=== PATIENT | female | born 1945 | race Caucasian/White ===

== ENCOUNTER → 2016-07-20 | Outpatient (REF) | payer MEDICARE, OTHER | LOC: M LAB REF 16:13 | PROVIDERS: ATTEND Surgery | DX: D48.5 Neoplasm of uncertain behavior of skin (principal) ==

== ENCOUNTER → 2016-09-01 | Outpatient (CLI) | payer MEDICARE, OTHER | LOC: M LAB 09:12 | PROVIDERS: ATTEND Nurse Practitioner Family | DX: E55.9 Vitamin D deficiency, unspecified (principal); E53.8 Deficiency of other specified B group vitamins; Z79.899 Other long term (current) drug therapy ==

== ENCOUNTER → 2016-12-15 | Outpatient (CLI) | payer MEDICARE, OTHER ==
[2016-12-15 10:45] LABS: ALBUMIN 3.7 GM/DL (3.2-5.2); ALBUMIN/GLOBULIN RATIO 1.23 (1.00-1.93); ALKALINE PHOSPHATASE 48 U/L (45-117); ALT/SGPT 33 U/L (12-78); ANION GAP 6 MEQ/L (8-16); AST/SGOT 15 U/L (15-37); BILIRUBIN,TOTAL 0.4 MG/DL (0.2-1.0); BLOOD UREA NITROGEN 19 MG/DL (7-18); CALCIUM LEVEL 9.5 MG/DL (8.8-10.2); CARBON DIOXIDE LEVEL 32 MEQ/L (21-32); CHLORIDE LEVEL 102 MEQ/L (98-107); CHOLESTEROL LEVEL 168 MG/DL (<200); CREATININE FOR GFR 0.78 MG/DL (0.55-1.02); FREE T4 1.04 NG/DL (0.76-1.46); GLOMERULAR FILTRATION RATE > 60.0 (>39); GLUCOSE, FASTING 92 MG/DL (83-110); POTASSIUM SERUM 4.2 MEQ/L (3.5-5.1); SODIUM LEVEL 140 MEQ/L (136-145); TOTAL PROTEIN 6.7 GM/DL (6.4-8.2); TRIGLYCERIDES LEVEL 68 MG/DL (<150)
[2016-12-15 11:22] LABS: VITAMIN B12 LEVEL 1008 PG/ML (247-911)
== END ==
LOC: M LAB 09:36
PROVIDERS: ATTEND Nurse Practitioner Family
DX: D64.9 Anemia, unspecified (principal); E55.9 Vitamin D deficiency, unspecified; I10 Essential (primary) hypertension; E78.00 Pure hypercholesterolemia, unspecified

== ENCOUNTER → 2016-12-16 | Outpatient (CLI) | payer MEDICARE, OTHER ==
[2016-12-16 13:57] LABS: MEAN CORPUSCULAR HEMOGLOBIN 29.9 pg (27.0-33.0); MEAN CORPUSCULAR HGB CONC 33.9 g/dl (32.0-36.5); RED CELL DISTRIBUTION WIDTH 13.4 % (11.5-14.5); WHITE BLOOD COUNT 6.2 10^3/uL (4.0-10.0)
== END ==
LOC: M LAB 12:53
PROVIDERS: ATTEND Nurse Practitioner Family
DX: D64.9 Anemia, unspecified (principal); E55.9 Vitamin D deficiency, unspecified; I10 Essential (primary) hypertension; E78.00 Pure hypercholesterolemia, unspecified

== ENCOUNTER → 2018-01-24 | Outpatient (CLI) | payer MEDICARE, OTHER | LOC: M WHC 12:40 | DX: Z12.31 Encounter for screening mammogram for malignant neoplasm of breast (principal); L72.0 Epidermal cyst; Z92.29 Personal history of other drug therapy | CPT/HCPCS: 88304 ==

== ENCOUNTER → 2018-02-09 | Outpatient (CLI) | payer MEDICARE, OTHER | LOC: M RAD 11:03 | DX: N18.2 Chronic kidney disease, stage 2 (mild) (principal); N28.1 Cyst of kidney, acquired | CPT/HCPCS: 76775 ==

== ENCOUNTER → 2018-02-24 | Outpatient (CLI) | payer MEDICARE, OTHER ==
--- NOTE | 2018-02-25 07:13 | REP ---
REASON: History of hypertension and dizziness. PRIORS: None. There is slight echogenic material seen along the blanco of the carotid arteries some of which cast a slight acoustic shadow consistent with calcific deposition. RIGHT LEFT CCA Systolic 89.8 cm/s 89.6 cm/s CCA Diastolic 16.9 cm/s 20.5 cm/s ICA Systolic 63.6 cm/s 70.3 cm/s ICA Diastolic 15.3 cm/s 25.7 cm/s ICA/CCA Ratio 0.71 0.78 Analysis of the spectral wave form shows no evidence of significant spectral broadening. There is antegrade flow seen in both vertebral arteries. IMPRESSION: According to the NASCET consensus criteria, there is less than 50% stenosis of the internal carotid artery bilaterally. Electronically Signed by Bernabe Shahid DO 02/25/2018 11:01 A
== END ==
LOC: M RAD 16:51
PROVIDERS: ATTEND Internal Medicine Nephrology
DX: I65.23 Occlusion and stenosis of bilateral carotid arteries (principal)

== ENCOUNTER → 2018-03-24 | Outpatient (CLI) | payer MEDICARE, OTHER ==
[2018-03-24 12:56] LABS: HEMOGLOBIN 13.2 g/dl (12.0-15.5); MEAN CORPUSCULAR HEMOGLOBIN 30.8 pg (27.0-33.0); MEAN CORPUSCULAR HGB CONC 33.8 g/dl (32.0-36.5); MEAN CORPUSCULAR VOLUME 90.9 fl (80.0-96.0); PLATELET COUNT, AUTOMATED 198 10^3/uL (150-450); RED BLOOD COUNT 4.29 10^6/uL (4.00-5.40); WHITE BLOOD COUNT 4.6 10^3/uL (4.0-10.0)
[2018-03-24 13:23] LABS: ALBUMIN 3.7 GM/DL (3.2-5.2); ALT/SGPT 29 U/L (12-78); BILIRUBIN,TOTAL 0.7 MG/DL (0.2-1.0); BLOOD UREA NITROGEN 18 MG/DL (7-18); CALCIUM LEVEL 9.2 MG/DL (8.8-10.2); CARBON DIOXIDE LEVEL 29 MEQ/L (21-32); CHLORIDE LEVEL 107 MEQ/L (98-107); CHOLESTEROL LEVEL 159 MG/DL (<200); CHOLESTEROL RISK RATIO 2.446 (<5); CPK CREATINE PHOSPHOKINASE 86 U/L (26-192); GLOMERULAR FILTRATION RATE > 60.0 (>39); GLUCOSE, FASTING 73 MG/DL (70-100); HDL CHOLESTEROL 65 MG/DL (>40); LDL CHOLESTEROL 81 MG/DL (<100); NON-HDL-C 94 MG/DL; POTASSIUM SERUM 4.1 MEQ/L (3.5-5.1); SODIUM LEVEL 144 MEQ/L (136-145); TOTAL PROTEIN 6.4 GM/DL (6.4-8.2); TRIGLYCERIDES LEVEL 63 MG/DL (<150)
[2018-03-24 14:10] LABS: TOTAL 25(OH) VITAMIN D 39.1 NG/ML (30.0-100.0)
== END ==
LOC: M LAB 11:59
PROVIDERS: ATTEND Nurse Practitioner Family
DX: I10 Essential (primary) hypertension (principal); E78.00 Pure hypercholesterolemia, unspecified; E55.9 Vitamin D deficiency, unspecified

== ENCOUNTER → 2018-05-02 | Outpatient (CLI) | payer MEDICARE, OTHER ==
--- NOTE | 2018-05-04 11:19 | DEXA ---
AP SPINE L1 - L4 1.266 0.6 2.3 LT FEMUR TOTAL 0.920 -0.7 0.9 LT NECK 0.930 -0.8 1.0 RT FEMUR TOTAL 0.883 -1.0 0.6 RT NECK 0.860 -1.3 0.5 TOTAL BODY TOTAL OTHER COMMENTS: Normal bone densitometry of the spine. Normal bone densitometry of the left hip. There is low bone density of the right hip. The decreased density of the spine does represent a significant change since 11/19/2014. The decreased density of the left hip does represent a significant change since 11/19/2014. The decreased density of the right hip does represent a significant change. The density of the spine has increased 9.0% since the initial exam on 05/24/2002. The spine density has decreased 4.2% since the most recent exam on 11/19/2014. The density of the left hip has decreased 2.6% since the initial exam on 05/24/2002. The density of the left hip has decreased 5.4% since the most recent exam on 11/19/2014. The density of the right hip has decreased 0.3% since the initial exam on 05/24/2002. The density of the right hip has decreased 5.6% since the most recent exam on 11/19/2014. FOLLOW-UP: Recommendation for the next bone density exam: 2 years. LIANE
== END ==
LOC: M WHC 13:25
PROVIDERS: ATTEND Nurse Practitioner Family
DX: M85.851 Other specified disorders of bone density and structure, right thigh (principal); E55.9 Vitamin D deficiency, unspecified

== ENCOUNTER → 2018-06-21 | Outpatient (CLI) | payer MEDICARE, OTHER ==
[2018-06-21 12:55] LABS: HEMATOCRIT 41.6 % (36.0-47.0); HEMOGLOBIN 14.3 g/dl (12.0-15.5); MEAN CORPUSCULAR HEMOGLOBIN 30.6 pg (27.0-33.0); MEAN CORPUSCULAR HGB CONC 34.4 g/dl (32.0-36.5); MEAN CORPUSCULAR VOLUME 88.9 fl (80.0-96.0); PLATELET COUNT, AUTOMATED 191 10^3/uL (150-450); RED BLOOD COUNT 4.68 10^6/uL (4.00-5.40); WHITE BLOOD COUNT 4.7 10^3/uL (4.0-10.0)
[2018-06-21 13:20] LABS: ALBUMIN 3.9 GM/DL (3.2-5.2); ALT/SGPT 30 U/L (12-78); BILIRUBIN,TOTAL 0.6 MG/DL (0.2-1.0); BLOOD UREA NITROGEN 17 MG/DL (7-18); CALCIUM LEVEL 9.5 MG/DL (8.8-10.2); CARBON DIOXIDE LEVEL 31 MEQ/L (21-32); CHLORIDE LEVEL 107 MEQ/L (98-107); CHOLESTEROL LEVEL 191 MG/DL (<200); CPK CREATINE PHOSPHOKINASE 72 U/L (26-192); CREATININE FOR GFR 0.78 MG/DL (0.55-1.30); GLOMERULAR FILTRATION RATE > 60.0 (>39); GLUCOSE, FASTING 105 MG/DL (70-100); HDL CHOLESTEROL 71 MG/DL (>40); LDL CHOLESTEROL 100 MG/DL (<100); NON-HDL-C 120 MG/DL; POTASSIUM SERUM 4.3 MEQ/L (3.5-5.1); SODIUM LEVEL 143 MEQ/L (136-145); TOTAL PROTEIN 6.7 GM/DL (6.4-8.2); TRIGLYCERIDES LEVEL 98 MG/DL (<150)
[2018-06-21 13:28] LABS: TOTAL 25(OH) VITAMIN D 32.2 NG/ML (30.0-100.0)
== END ==
LOC: M LAB 12:30
PROVIDERS: ATTEND Nurse Practitioner Family
DX: E78.5 Hyperlipidemia, unspecified (principal); E55.9 Vitamin D deficiency, unspecified; I10 Essential (primary) hypertension; Z79.899 Other long term (current) drug therapy

== ENCOUNTER → 2018-07-10 | Outpatient (REF) | payer MEDICARE, OTHER ==
[2018-07-10 13:34] LABS: HEMOGLOBIN A1c 5.8 %
[2018-07-10 13:38] LABS: RHEUMATOID FACTOR QUANT < 10.0 IU/ML (<15.0); TOTAL PROTEIN 6.4 GM/DL (6.4-8.2)
[2018-07-10 13:40] LABS: VITAMIN B12 LEVEL 589 PG/ML (247-911)
[2018-07-10 14:05] LABS: FOLATE > 24.0 NG/ML (>5.4)
[2018-07-11 10:11] LABS: DRVV SCREEN 31.8 SEC
[2018-07-11 10:13] LABS: PTT LUPUS TYPE ANTICOAG SCREEN 0.8 (0-1.2)
[2018-07-11 10:55] LABS: ALBUMIN % 65.2 % (55.8-66.1); ALPHA-1-GLOBULIN % 4.2 % (2.9-4.9); ALPHA-2-GLOBULINS % 9.9 % (7.1-11.8); BETA-1-GLOBULINS % 6.9 % (4.7-7.2); BETA-2-GLOBULINS % 5.1 % (3.2-6.5)
[2018-07-11 10:56] LABS: ALBUMIN 4.17 GM/DL (3.29-5.55); ALPHA-1-GLOBULINS 0.27 GM/DL (0.17-0.41); ALPHA-2-GLOBULINS 0.63 GM/DL (0.42-0.99); BETA-1-GLOBULINS 0.44 GM/DL (0.28-0.60); BETA-2-GLOBULINS 0.33 GM/DL (0.19-0.55); GAMMA GLOBULIN % 8.7 % (11.1-18.8); GAMMA GLOBULINS 0.56 GM/DL (0.65-1.58)
[2018-07-13 00:06] LABS: ANCA-ATYPICAL <1:20 titer (Neg:<1:20); ANTINUCLEAR ANTIBODIES DIRECT Negative (Negative); CYTOPLASMIC NEUTROP AB ANCA-C <1:20 titer (Neg:<1:20); PERINUCLEAR AB ANCA-P <1:20 titer (Neg:<1:20); SJOGREN'S ANTI SS-A <0.2 AI (0.0-0.9); SJOGREN'S ANTI SS-B <0.2 AI (0.0-0.9)
[2018-07-13 14:51] LABS: ANTI DS-DNA AB <1:10 titer (.); VITAMIN E(ALPHA TOCOPHEROL) 12.9 mg/L (9.0-29.0); VITAMIN E(GAMMA TOCOPHEROL) 0.5 mg/L (0.5-4.9)
== END ==
LOC: M LABNEURO 10:48
PROVIDERS: ATTEND Psychiatry & Neurology Neurology
DX: G62.9 Polyneuropathy, unspecified (principal); E07.9 Disorder of thyroid, unspecified

== ENCOUNTER → 2018-09-19 | Outpatient (CLI) | payer MEDICARE, OTHER ==
[2018-09-19 10:13] LABS: HEMATOCRIT 37.3 % (36.0-47.0); HEMOGLOBIN 12.5 g/dl (12.0-15.5); MEAN CORPUSCULAR HEMOGLOBIN 29.8 pg (27.0-33.0); MEAN CORPUSCULAR HGB CONC 33.5 g/dl (32.0-36.5); PLATELET COUNT, AUTOMATED 187 10^3/uL (150-450); RED BLOOD COUNT 4.19 10^6/uL (4.00-5.40); WHITE BLOOD COUNT 4.4 10^3/uL (4.0-10.0)
[2018-09-19 10:47] LABS: ALT/SGPT 28 U/L (12-78); BILIRUBIN,TOTAL 0.6 MG/DL (0.2-1.0); BLOOD UREA NITROGEN 16 MG/DL (7-18); CALCIUM LEVEL 9.4 MG/DL (8.8-10.2); CARBON DIOXIDE LEVEL 32 MEQ/L (21-32); CHLORIDE LEVEL 113 MEQ/L (98-107); CHOLESTEROL LEVEL 155 MG/DL (<200); CHOLESTEROL RISK RATIO 2.183 (<5); CPK CREATINE PHOSPHOKINASE 97 U/L (26-192); GLOMERULAR FILTRATION RATE > 60.0 (>39); GLUCOSE, FASTING 93 MG/DL (70-100); HDL CHOLESTEROL 71 MG/DL (>40); LDL CHOLESTEROL 74 MG/DL (<100); NON-HDL-C 84 MG/DL; SODIUM LEVEL 138 MEQ/L (136-145); TOTAL PROTEIN 6.7 GM/DL (6.4-8.2); TRIGLYCERIDES LEVEL 50 MG/DL (<150)
== END ==
LOC: M LAB 09:39
PROVIDERS: ATTEND Nurse Practitioner Family
DX: I10 Essential (primary) hypertension (principal); E55.9 Vitamin D deficiency, unspecified; E78.5 Hyperlipidemia, unspecified

== ENCOUNTER → 2018-11-29 | Outpatient (REF) | payer MEDICARE, OTHER ==
[2018-11-29 19:36] LABS: APPEARANCE, URINE CLEAR (CLEAR); BACTERIA, URINE AUTO NEGATIVE (NEGATIVE); BILIRUBIN, URINE AUTO NEGATIVE (NEGATIVE); BLOOD, URINE BLOOD NEGATIVE (NEGATIVE); COLOR, URINE YELLOW (YELLOW); GLUCOSE, URINE (UA) AUTO NEGATIVE (NEGATIVE); KETONE, URINE AUTO NEGATIVE (NEGATIVE); LEUKOCYTE ESTERASE, URINE AUTO NEGATIVE (NEGATIVE); MUCUS, URINE SMALL (NEGATIVE); NITRITE, URINE AUTO NEGATIVE (NEGATIVE); PROTEIN, URINE AUTO NEGATIVE (NEGATIVE); RBC, URINE AUTO 1 /HPF (0-3); SPECIFIC GRAVITY URINE AUTO 1.005 (1.002-1.035); SQUAMOUS EPITHELIAL CELL UR AU 0 /HPF (0-6); UROBILINOGEN, URINE AUTO 0.2 mg/dL (0.0-2.0); WBC, URINE AUTO 0 /HPF (0-3)
== END ==
LOC: M LAB REF 16:21
PROVIDERS: ATTEND Nurse Practitioner Women's Health
DX: N32.81 Overactive bladder (principal)

== ENCOUNTER → 2019-01-31 | Outpatient (CLI) | payer MEDICARE, OTHER ==
[2019-01-31 10:53] LABS: HEMATOCRIT 40.5 % (36.0-47.0); HEMOGLOBIN 13.1 g/dl (12.0-15.5); MEAN CORPUSCULAR HEMOGLOBIN 29.9 pg (27.0-33.0); MEAN CORPUSCULAR HGB CONC 32.3 g/dl (32.0-36.5); MEAN CORPUSCULAR VOLUME 92.5 fl (80.0-96.0); PLATELET COUNT, AUTOMATED 201 10^3/uL (150-450); RED BLOOD COUNT 4.38 10^6/uL (4.00-5.40); WHITE BLOOD COUNT 4.2 10^3/uL (4.0-10.0)
[2019-01-31 11:26] LABS: ALBUMIN 3.8 GM/DL (3.2-5.2); ALT/SGPT 32 U/L (12-78); BILIRUBIN,TOTAL 0.5 MG/DL (0.2-1.0); BLOOD UREA NITROGEN 16 MG/DL (7-18); CALCIUM LEVEL 9.4 MG/DL (8.8-10.2); CARBON DIOXIDE LEVEL 31 MEQ/L (21-32); CHLORIDE LEVEL 108 MEQ/L (98-107); CHOLESTEROL LEVEL 170 MG/DL (<200); CHOLESTEROL RISK RATIO 2.741 (<5); CPK CREATINE PHOSPHOKINASE 100 U/L (26-192); CREATININE FOR GFR 0.76 MG/DL (0.55-1.30); GLOMERULAR FILTRATION RATE > 60.0 (>39); GLUCOSE, FASTING 86 MG/DL (70-100); HDL CHOLESTEROL 62 MG/DL (>40); LDL CHOLESTEROL 87 MG/DL (<100); NON-HDL-C 108 MG/DL; POTASSIUM SERUM 4.4 MEQ/L (3.5-5.1); SODIUM LEVEL 143 MEQ/L (136-145); TOTAL PROTEIN 6.8 GM/DL (6.4-8.2); TRIGLYCERIDES LEVEL 107 MG/DL (<150)
[2019-01-31 11:31] LABS: TOTAL 25(OH) VITAMIN D 48.1 NG/ML (30.0-100.0)
== END ==
LOC: M LAB 10:11
PROVIDERS: ATTEND Nurse Practitioner Family
DX: I10 Essential (primary) hypertension (principal); E78.5 Hyperlipidemia, unspecified; E55.9 Vitamin D deficiency, unspecified

== ENCOUNTER → 2019-04-24 | Outpatient (CLI) | payer MEDICARE, OTHER ==
--- NOTE | 2019-04-24 16:05 | REPMRS ---
Patient History The patient states she had a clinical breast exam in October 2018.Family history of prostate cancer at age 80 in father. Took unspecified hormones for 7 years. Digital Woman Screen Mammo: April 24, 2019 - Exam #: [id number] Bilateral CC and MLO view(s) were taken. Technologist: Pricilla Shahid, Technologist Prior study comparison: January 24, 2018, bilateral digital woman screen mammo performed at [facility]. January 17, 2017, digital woman screen mammo performed at [facility]. January 16, 2016, digital woman screen mammo performed at [facility]. FINDINGS: The breast tissue is heterogeneously dense. This may lower the sensitivity of mammography. There is a moderate amount of heterogeneously dense fibroglandular tissue which is fairly symmetric. There is no interval development of dominant mass, architectural distortion, or grouped microcalcification typical of malignancy. There has been no change in the appearance of the mammogram from the prior studies. 3-D tomosynthesis shows no additional findings. Assessment: BI-RADS/ACR category 1 mammogram. Negative Mammogram. Recommendation Routine screening mammogram of both breasts in 1 year (for women over age 40). This patient's Lifetime Breast Cancer RIsk is estimated at 6.3 %. This mammogram was interpreted with the aid of an FDA-approved computer-aided dectection system. Electronically Signed By: Elvin Hernandez MD 04/24/19 [id number]
== END ==
LOC: M WHC 12:57
PROVIDERS: ATTEND Obstetrics & Gynecology
DX: Z12.31 Encounter for screening mammogram for malignant neoplasm of breast (principal); R29.890 Loss of height

== ENCOUNTER → 2019-11-23 | Outpatient (CLI) | payer MEDICARE, OTHER ==
[2019-11-23 12:30] LABS: HEMOGLOBIN 12.8 g/dl (12.0-15.5); MEAN CORPUSCULAR HEMOGLOBIN 30.3 pg (27.0-33.0); MEAN CORPUSCULAR HGB CONC 32.8 g/dl (32.0-36.5); MEAN CORPUSCULAR VOLUME 92.4 fl (80.0-96.0); PLATELET COUNT, AUTOMATED 198 10^3/uL (150-450); RED BLOOD COUNT 4.22 10^6/uL (4.00-5.40); WHITE BLOOD COUNT 4.1 10^3/uL (4.0-10.0)
[2019-11-23 13:47] LABS: ALBUMIN 3.8 GM/DL (3.2-5.2); ALT/SGPT 29 U/L (12-78); BILIRUBIN,TOTAL 0.6 MG/DL (0.2-1.0); BLOOD UREA NITROGEN 20 MG/DL (7-18); CALCIUM LEVEL 8.9 MG/DL (8.8-10.2); CARBON DIOXIDE LEVEL 33 MEQ/L (21-32); CHLORIDE LEVEL 107 MEQ/L (98-107); CHOLESTEROL LEVEL 143 MG/DL (<200); CHOLESTEROL RISK RATIO 2.134 (<5); CPK CREATINE PHOSPHOKINASE 64 U/L (26-192); GLOMERULAR FILTRATION RATE > 60.0 (>39); GLUCOSE, FASTING 78 MG/DL (70-100); HDL CHOLESTEROL 67 MG/DL (>40); LDL CHOLESTEROL 67 MG/DL (<100); NON-HDL-C 76 MG/DL; POTASSIUM SERUM 4.2 MEQ/L (3.5-5.1); SODIUM LEVEL 141 MEQ/L (136-145); TOTAL PROTEIN 6.6 GM/DL (6.4-8.2); TRIGLYCERIDES LEVEL 46 MG/DL (<150)
== END ==
LOC: M LAB 11:43
PROVIDERS: ATTEND Nurse Practitioner Family
DX: E78.5 Hyperlipidemia, unspecified (principal); I10 Essential (primary) hypertension

== ENCOUNTER → 2019-12-12 | Outpatient (CLI) | payer MEDICARE, OTHER ==
--- NOTE | 2019-12-19 08:58 | REP ---
RENAL ULTRASOUND COMPARISON: 02/09/2018. HISTORY: Chronic kidney disease stage II. TECHNIQUE: Real-time sonographic evaluation of kidneys performed. FINDINGS: Kidneys are normal in size and echotexture, right kidney measuring 9.9 x 4.9 x 4.1 cm and the left kidney 9.6 x 5.0 x 5.8 cm. There is no hydronephrosis bilaterally. There is a round hyperechoic nodule in the upper pole of the right kidney 6 mm in diameter most consistent with an angiomyolipoma. This is unchanged compared to the prior ultrasound. No other significant abnormalities are seen. Urinary bladder is mildly distended. With Doppler color evaluation ureteral jets could not be visualized. IMPRESSION: No hydronephrosis. 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 MTDD
== END ==
LOC: M RAD 10:59
PROVIDERS: ATTEND Nurse Practitioner Family
DX: N18.2 Chronic kidney disease, stage 2 (mild) (principal)

== ENCOUNTER → 2020-02-21 | Outpatient (CLI) | payer MEDICARE, OTHER ==
[2020-02-21 13:24] LABS: HEMATOCRIT 40.7 % (36.0-47.0); HEMOGLOBIN 13.1 g/dl (12.0-15.5); MEAN CORPUSCULAR HEMOGLOBIN 29.1 pg (27.0-33.0); MEAN CORPUSCULAR HGB CONC 32.2 g/dl (32.0-36.5); MEAN CORPUSCULAR VOLUME 90.4 fl (80.0-96.0); PLATELET COUNT, AUTOMATED 195 10^3/uL (150-450); WHITE BLOOD COUNT 5.8 10^3/uL (4.0-10.0)
[2020-02-21 14:01] LABS: HEMOGLOBIN A1c 5.6 %
[2020-02-21 14:04] LABS: ALT/SGPT 35 U/L (12-78); BILIRUBIN,TOTAL 0.7 MG/DL (0.2-1.0); BLOOD UREA NITROGEN 16 MG/DL (7-18); CALCIUM LEVEL 9.3 MG/DL (8.8-10.2); CARBON DIOXIDE LEVEL 33 MEQ/L (21-32); CHLORIDE LEVEL 107 MEQ/L (98-107); CHOLESTEROL LEVEL 156 MG/DL (<200); CHOLESTEROL RISK RATIO 2.197 (<5); CREATININE FOR GFR 0.82 MG/DL (0.55-1.30); GLOMERULAR FILTRATION RATE > 60.0 (>39); GLUCOSE, FASTING 87 MG/DL (70-100); HDL CHOLESTEROL 71 MG/DL (>40); IRON (FE) 128 UG/DL (50-170); LDL CHOLESTEROL 72 MG/DL (<100); MAGNESIUM LEVEL 2.6 MG/DL (1.8-2.4); NON-HDL-C 85 MG/DL; POTASSIUM SERUM 3.9 MEQ/L (3.5-5.1); SODIUM LEVEL 141 MEQ/L (136-145); TOTAL PROTEIN 6.7 GM/DL (6.4-8.2); TRIGLYCERIDES LEVEL 64 MG/DL (<150)
[2020-02-21 14:07] LABS: VITAMIN B12 LEVEL 965 PG/ML (247-911)
== END ==
LOC: M LAB 12:27
PROVIDERS: ATTEND Nurse Practitioner Family
DX: D64.9 Anemia, unspecified (principal); E83.41 Hypermagnesemia; E11.9 Type 2 diabetes mellitus without complications; E78.49 Other hyperlipidemia

== ENCOUNTER → 2020-05-23 | Outpatient (CLI) | payer MEDICARE, OTHER ==
[2020-05-23 15:56] LABS: HEMATOCRIT 41.4 % (36.0-47.0); HEMOGLOBIN 13.7 g/dl (12.0-15.5); MEAN CORPUSCULAR HEMOGLOBIN 29.7 pg (27.0-33.0); MEAN CORPUSCULAR HGB CONC 33.1 g/dl (32.0-36.5); MEAN CORPUSCULAR VOLUME 89.6 fl (80.0-96.0); PLATELET COUNT, AUTOMATED 205 10^3/uL (150-450); RED BLOOD COUNT 4.62 10^6/uL (4.00-5.40); WHITE BLOOD COUNT 5.9 10^3/uL (4.0-10.0)
[2020-05-23 16:18] LABS: ALBUMIN 3.9 GM/DL (3.2-5.2); ALT/SGPT 31 U/L (12-78); BILIRUBIN,TOTAL 0.6 MG/DL (0.2-1.0); BLOOD UREA NITROGEN 21 MG/DL (7-18); CALCIUM LEVEL 9.5 MG/DL (8.8-10.2); CARBON DIOXIDE LEVEL 31 MEQ/L (21-32); CHLORIDE LEVEL 107 MEQ/L (98-107); CHOLESTEROL LEVEL 149 MG/DL (<200); CHOLESTEROL RISK RATIO 2.328 (<5); CPK CREATINE PHOSPHOKINASE 72 U/L (26-192); GLOMERULAR FILTRATION RATE > 60.0 (>39); GLUCOSE, FASTING 84 MG/DL (70-100); HDL CHOLESTEROL 64 MG/DL (>40); LDL CHOLESTEROL 69 MG/DL (<100); NON-HDL-C 85 MG/DL; POTASSIUM SERUM 4.1 MEQ/L (3.5-5.1); SODIUM LEVEL 142 MEQ/L (136-145); TOTAL PROTEIN 6.5 GM/DL (6.4-8.2); TRIGLYCERIDES LEVEL 79 MG/DL (<150)
[2020-05-23 16:37] LABS: TOTAL 25(OH) VITAMIN D 52.3 NG/ML (30.0-100.0)
== END ==
LOC: M LAB 14:44
PROVIDERS: ATTEND Nurse Practitioner Family
DX: E78.00 Pure hypercholesterolemia, unspecified (principal); I10 Essential (primary) hypertension; E55.9 Vitamin D deficiency, unspecified; Z79.899 Other long term (current) drug therapy

== ENCOUNTER → 2020-08-25 | Outpatient (CLI) | payer MEDICARE, OTHER ==
[2020-08-25 15:15] LABS: HEMATOCRIT 41.1 % (36.0-47.0); HEMOGLOBIN 13.5 g/dl (12.0-15.5); MEAN CORPUSCULAR HGB CONC 32.8 g/dl (32.0-36.5); MEAN CORPUSCULAR VOLUME 88.2 fl (80.0-96.0); PLATELET COUNT, AUTOMATED 221 10^3/uL (150-450); RED BLOOD COUNT 4.66 10^6/uL (4.00-5.40)
[2020-08-25 15:46] LABS: ALT/SGPT 26 U/L (12-78); BILIRUBIN,TOTAL 0.7 MG/DL (0.2-1.0); BLOOD UREA NITROGEN 14 MG/DL (7-18); CALCIUM LEVEL 9.4 MG/DL (8.8-10.2); CARBON DIOXIDE LEVEL 30 MEQ/L (21-32); CHLORIDE LEVEL 107 MEQ/L (98-107); CHOLESTEROL LEVEL 273 MG/DL (<200); CPK CREATINE PHOSPHOKINASE 97 U/L (26-192); CREATININE FOR GFR 0.82 MG/DL (0.55-1.30); GLOMERULAR FILTRATION RATE > 60.0 (>39); GLUCOSE, FASTING 91 MG/DL (70-100); HDL CHOLESTEROL 65 MG/DL (>40); LDL CHOLESTEROL 194 MG/DL (<100); MAGNESIUM LEVEL 2.3 MG/DL (1.8-2.4); NON-HDL-C 208 MG/DL; POTASSIUM SERUM 4.3 MEQ/L (3.5-5.1); SODIUM LEVEL 142 MEQ/L (136-145); TOTAL PROTEIN 6.7 GM/DL (6.4-8.2); TRIGLYCERIDES LEVEL 71 MG/DL (<150)
[2020-08-25 15:51] LABS: TOTAL 25(OH) VITAMIN D 45.6 NG/ML (30.0-100.0)
== END ==
LOC: M LAB 14:37
PROVIDERS: ATTEND Nurse Practitioner Family
DX: I10 Essential (primary) hypertension (principal); E78.5 Hyperlipidemia, unspecified; E83.42 Hypomagnesemia; Z79.899 Other long term (current) drug therapy

== ENCOUNTER → 2020-10-08 | Outpatient (REF) | payer MEDICARE, OTHER | LOC: M LAB REF 17:34 | PROVIDERS: ATTEND Internal Medicine Nephrology | DX: I10 Essential (primary) hypertension (principal); E55.9 Vitamin D deficiency, unspecified ==

== ENCOUNTER → 2020-11-24 | Outpatient (CLI) | payer MEDICARE, OTHER ==
[2020-11-24 15:02] LABS: HEMATOCRIT 39.5 % (36.0-47.0); HEMOGLOBIN 13.1 g/dl (12.0-15.5); MEAN CORPUSCULAR HEMOGLOBIN 29.3 pg (27.0-33.0); MEAN CORPUSCULAR HGB CONC 33.2 g/dl (32.0-36.5); MEAN CORPUSCULAR VOLUME 88.4 fl (80.0-96.0); PLATELET COUNT, AUTOMATED 190 10^3/uL (150-450); RED BLOOD COUNT 4.47 10^6/uL (4.00-5.40); WHITE BLOOD COUNT 5.4 10^3/uL (4.0-10.0)
[2020-11-24 15:58] LABS: ALBUMIN 3.8 GM/DL (3.2-5.2); ALT/SGPT 30 U/L (12-78); BILIRUBIN,TOTAL 0.8 MG/DL (0.2-1.0); BLOOD UREA NITROGEN 22 MG/DL (7-18); CALCIUM LEVEL 9.2 MG/DL (8.8-10.2); CARBON DIOXIDE LEVEL 29 MEQ/L (21-32); CHLORIDE LEVEL 104 MEQ/L (98-107); CHOLESTEROL LEVEL 164 MG/DL (<200); CHOLESTEROL RISK RATIO 2.688 (<5); CPK CREATINE PHOSPHOKINASE 66 U/L (26-192); CREATININE FOR GFR 0.68 MG/DL (0.55-1.30); GLOMERULAR FILTRATION RATE > 60.0 (>39); GLUCOSE, FASTING 83 MG/DL (70-100); HDL CHOLESTEROL 61 MG/DL (>40); LDL CHOLESTEROL 87 MG/DL (<100); NON-HDL-C 103 MG/DL; POTASSIUM SERUM 4.3 MEQ/L (3.5-5.1); SODIUM LEVEL 141 MEQ/L (136-145); TOTAL 25(OH) VITAMIN D 43.9 NG/ML (30.0-100.0); TOTAL PROTEIN 6.5 GM/DL (6.4-8.2); TRIGLYCERIDES LEVEL 80 MG/DL (<150)
== END ==
LOC: M LAB 13:29
PROVIDERS: ATTEND Nurse Practitioner Family
DX: I10 Essential (primary) hypertension (principal)

== ENCOUNTER → 2021-01-21 | Outpatient (CLI) | payer MEDICARE, OTHER ==
[~2021-01-21] MED LIST: ALPH300C PO; ATEN50TA2 PO; CALCCAP4 PO; CETI-36 PO; CHRO1000 PO; CITA20TA6 PO; CITA20TA7 PO; COQ1200C3 PO; CRAN1260 PO; DRIS50003 PO; EQL50TAB2 PO; FISH1000 PO; LOSA25TA14 PO; MONT10TA10 PO; OILCAP PO; OMEP-221 PO; PRESCAP PO; RA N1TAB PO; SENITAB3 PO; SIMV40TA20 PO; SLOW142T5 PO; SOLI10TA PO; VESI5TAB2 PO
== END ==
LOC: M LABSMTC 10:37
PROVIDERS: ATTEND Anesthesiology
DX: Z01.818 Encounter for other preprocedural examination (principal); Z11.52 Encounter for screening for COVID-19

== ENCOUNTER → 2021-01-23 | Outpatient (CLI) | payer MEDICARE, OTHER ==
--- NOTE | 2021-01-23 15:13 | REPMRS ---
Patient History The patient states she had a clinical breast exam in November 2020. Family history of prostate cancer at age 80 in father. Took unspecified hormones for 7 years. Tomosynthesis is performed. Volpara breast density is b. [facility] lifetime risk of breast cancer 5.5%. Patient states no breast complaints today. Patient has signed MRS History Sheet. Digital Woman Screen Mammo: January 23, 2021 - Exam #: [id number] Bilateral CC and MLO view(s) were taken. Technologist: Ignacia Santana, Technologist Prior study comparison: April 24, 2019, bilateral digital woman screen mammo performed at [facility]. January 24, 2018, bilateral digital woman screen mammo performed at [facility]. FINDINGS: The breast tissue is heterogeneously dense. This may lower the sensitivity of mammography. There has been no change in the appearance of the mammogram from the prior studies. There is a moderate amount of residual fibroglandular tissue which is fairly symmetric. There is no interval development of dominant mass, areas of architectural distortion, or clustered microcalcification typical of malignancy. Assessment: BI-RADS/ACR category 1 mammogram. Negative Mammogram. Recommendation Routine screening mammogram in 1 year (for women over age 40). This mammogram was interpreted with the aid of an FDA-approved computer-aided dectection system. Electronically Signed By: Gomez Braun MD 01/23/21 [id number]
== END ==
LOC: M WHC 14:07
PROVIDERS: ATTEND Obstetrics & Gynecology
DX: Z12.31 Encounter for screening mammogram for malignant neoplasm of breast (principal)

== ENCOUNTER 2021-01-26 09:01 | Day surgery (SDC) | payer MEDICARE, OTHER ==
[~2021-01-26] VITALS: Ht 167.6 cm; Wt 72.2 kg
[~2021-01-26 09:01] MED LIST changes: +NS 1,000 ML IV ONE
--- OUTSIDE RECORDS SUMMARY | 2021-01-26 09:07 | CCD | Continuity of Care Document ---
Author Author Marissa GARCIAS NP Organization Unknown Address [address] [place] [address] Phone [phone] Care Team Providers Care Rn Cardiac Cath Name Role Phone Carlos Dubon MD AUTM [phone] FERNANDA WARREN NP AUTM [phone] Problems Active Problems Provider Date H/O: depression Fernanda Warren NP Onset: 02/27/2020 Gastroesophageal reflux disease Fernanda Warren NP Onset: 1 04/29/2019 Pure hypercholesterolemia Fernanda Warren NP Onset: 020 Essential hypertension Fernanda Warren NP Onset: 02/27/2020 Social History Type Date Description Comments Sex Unknown Allergies and adverse reactions Active Allergies Criticality Reaction | Severity Comments Date Motrin Unable to assess criticality 02/27/2020 Environmental Unable to assess criticality 02/27/2020 Medications Active Medications SIG Qnty Indications Ordering Provide r Date Cipro 500mg Tablets 1 by mouth twice a day 14tabs Carl [facility] 12/23/19 21 Vitamin B Complex Tablets On e Weekly Carl Singh M.D[facility] Zyrtec Allergy 10mg Capsules 1 tab by mouth twice a day Unknown Vitamin K 100mcg Tablets take one tablet by mouth daily Carl Singh M.D[facility] Abc Plus Senior Tablets take one tablet by mouth daily Carl Singh M.D[facility]. Magnesium Oxide 400(240Mg) mg Tabl ets take one tablet by mouth daily Carl Singh M.D[facility] . Iron Slow Release 142(45Fe) mg Tab lets ER take one tablet by mouth daily Rufino Duvall,P.C. Fish Oil [place]-3 1000mg Capsules 1 by mouth twice a day Carl Singh M.D[facility]. Cranberry Fruit Concentrate High Potency 46754ar Capsules twice daily Carl Singh M.D[facility] Co-Enzyme Q10 100mg Capsules 2 tablets by mouth daily Carl Singh M.D[facility]. 00 Chromium Picolinate 500mcg Tablets take one tablet by mouth daily Carl Singh M.D[facility] . Calcium + D3 600-200 Tablets 1 by mouth twice a day 180tabs Carl Singh M.D[facility]. 00 Alpha-Lipoic Acid 300mg Capsules bid Carl Singh M.D[facility]. Preservision Areds 2 Areds 2 Capsu les 1 by mouth twice a day 180caps Carl Singh M.D[facility]. Omeprazole 40mg Capsules DR take one capsule by mouth once daily 90caps Carl Singh M.D[facility] .[facility] Vitamin D (Ergocalciferol) 1.25mg (28763 Ut) Capsules Take One Capsule By Mouth Once Monthly Un known Simvastatin 40mg Tablets take one tablet by mouth once daily in the evening 90tabs Carl Singh M.D[facility] Montelukast Sodium 10mg Tablets Take One Tablet By Mouth Once Daily 90tabs Carl Singh M.D[facility]. Citalopram Hydrobromide 20mg Table ts take one tablet by mouth once daily 90tabs Rufino Duvall,P.C. Atenolol 50mg Tablets take one tablet by mouth once daily 90tabs Carl Singh M.D[facility] 000 Solifenacin Succinate 10mg Tablets Take One Tablet By Mouth Every Day Unknown Losartan Potassium 25mg Tablets take one tablet by mouth once daily 90tabs Carl Singh M.D[facility]. [facility] Vital Signs Date Vital Result Comment 12/29/2020 10:41am Height 66 inches 5'6" Weight 155.00 lb BMI (Body Mass Index) 25.0 kg/m2 Body Temperature 98.3 F BP Systolic 110 mmHg BP Diastolic 62 mmHg Heart Rate 54 /min O2 % BldC Oximetry 98 % Respiratory Rate 18 /min 12/03/2020 10:54am Height 66 inches 5'6" Weight 157.12 lb BMI (Body Mass Index) 25.4 kg/m2 Body Temperature 97.7 F BP Systolic 121 mmHg BP Diastolic 63 mmHg Heart Rate 68 /min O2 % BldC Oximetry 95 % Results Test Acquired Date Facility Test Result H/L Range Note Complete Blood Count 11/24/[address] [address] [phone] White Blood Count 5.4 10 Normal 4.0-10.0 Red Blood Count 4.47 10 Normal 4.00-5.40 Hemoglobin 13.1 g/dL Normal 12.0-15.5 Hematocrit 39.5 % Normal 36.0-47.0 Mean Corpuscular Volume 88.4 fl Normal 80.0-96.0 Mean Corpuscular Hemoglobin 29.3 pg Normal 27.0-33.0 Mean Corpuscular HGB Conc 33.2 g/dL Normal 32.0-36.5 Red Cell Distribution Width 13.4 % Normal 11.5-14.5 Platelet Count, Automated 190 10 Normal 150-450 Nucleated Red Blood Cell % 0.0 % Normal 0-0 Comprehensive Metabolic Profil 11/24/[address] [id number] [phone] Glucose, Fasting 83 mg/dL Normal 70-100 Blood Urea Nitrogen 22 mg/dL High 7-18 Creatinine For GFR 0.68 mg/dL Normal 0.55-1.30 Glomerular Filtration Rate > 60.0 Normal >39 1 Sodium Level 141 mEq/L Normal 136-145 Potassium Serum 4.3 mEq/L Normal 3.5-5.1 Chloride Level 104 mEq/L Normal 98-107 Carbon Dioxide Level 29 mEq/L Normal 21-32 Anion Gap 8 mEq/L Normal 8-16 Calcium Level 9.2 mg/dL Normal 8.8-10.2 Ast/Sgot 20 U/L Normal 7-37 Alt/SGPT 30 U/L Normal 12-78 Alkaline Phosphatase 63 U/L Normal 45-117 Bilirubin,Total 0.8 mg/dL Normal 0.2-1.0 Total Protein 6.5 GM/DL Normal 6.4-8.2 Albumin 3.8 GM/DL Normal 3.2-5.2 Albumin/Globulin Ratio 1.4 Normal 1.2-2.2 Lipid Panel 11/24/[address] [address] [phone] Triglycerides Level 80 mg/dL Normal <150 Cholesterol Level 164 mg/dL Normal <200 HDL Cholesterol 61 mg/dL Normal >40 LDL Cholesterol 87 mg/dL Normal <100 Non-HDL-C 103 mg/dL Normal Cholesterol Risk Ratio 2.688 Normal <5 Laboratory test finding 11/24/[address] [address] [phone] CPK Creatine Phosphokinase 66 U/L Normal 26-19 2 Total 25(Oh) Vitamin D 43.9 NG/ML Normal 30.0-100.0 Complete Blood Count 08/25/[address] [address] [phone] White Blood Count 4.0 10 Normal 4.0-10.0 Red Blood Count 4.66 10 Normal 4.00-5.40 Hemoglobin 13.5 g/dL Normal 12.0-15.5 Hematocrit 41.1 % Normal 36.0-47.0 Mean Corpuscular Volume 88.2 fl Normal 80.0-96.0 Mean Corpuscular Hemoglobin 29.0 pg Normal 27.0-33.0 Mean Corpuscular HGB Conc 32.8 g/dL Normal 32.0-36.5 Red Cell Distribution Width 12.8 % Normal 11.5-14.5 Platelet Count, Automated 221 10 Normal 150-450 Nucleated Red Blood Cell % 0.0 % Normal 0-0 Comprehensive Metabolic Profil 08/25/[address] [address] [phone] Glucose, Fasting 91 mg/dL Normal 70-100 Blood Urea Nitrogen 14 mg/dL Normal 7-18 Creatinine For GFR 0.82 mg/dL Normal 0.55-1.30 Glomerular Filtration Rate > 60.0 Normal >39 2 Sodium Level 142 mEq/L Normal 136-145 Potassium Serum 4.3 mEq/L Normal 3.5-5.1 Chloride Level 107 mEq/L Normal 98-107 Carbon Dioxide Level 30 mEq/L Normal 21-32 Anion Gap 5 mEq/L Low 8-16 Calcium Level 9.4 mg/dL Normal 8.8-10.2 Ast/Sgot 17 U/L Normal 7-37 Alt/SGPT 26 U/L Normal 12-78 Alkaline Phosphatase 65 U/L Normal 45-117 Bilirubin,Total 0.7 mg/dL Normal 0.2-1.0 Total Protein 6.7 GM/DL Normal 6.4-8.2 Albumin 4.0 GM/DL Normal 3.2-5.2 Albumin/Globulin Ratio 1.5 Normal 1.2-2.2 Lipid Panel 08/25/[address] [address] [phone] Triglycerides Level 71 mg/dL Normal <150 Cholesterol Level 273 mg/dL High <200 HDL Cholesterol 65 mg/dL Normal >40 LDL Cholesterol 194 mg/dL High <100 Non-HDL-C 208 mg/dL Normal Cholesterol Risk Ratio 4.200 Normal <5 Laboratory test finding 08/25/[address] [address] [phone] CPK Creatine Phosphokinase 97 U/L Normal 26-19 2 Magnesium Level 2.3 mg/dL Normal 1.8-2.4 Total 25(Oh) Vitamin D 45.6 NG/ML Normal 30.0-100.0 1 Units are mL/min/1.73 m2 Chronic Kidney Disease Staging per NKF: Stage I & II GFR >=60 Normal to Mildly Decreased Stage III GFR 30-59 Moderately Decreased Stage IV GFR 15-29 Severely Decreased Stage V GFR <15 Very Little GFR Left ESRD GFR <15 on BOAT [employer] INST[employer]ER 2 Units are mL/min/1.73 m2 Chronic Kidney Disease Staging per NKF: Stage I & II GFR >=60 Normal to Mildly Decreased Stage III GFR 30-59 Moderately Decreased Stage IV GFR 15-29 Severely Decreased Stage V GFR <15 Very Little GFR Left ESRD GFR <15 on [employer]AT [employer]ER Procedures Date Code Description Status 12/29/2020 23652 Arterial Studies Completed 12/03/2020 83054 Office/Outpatient Established Mo d MDM 30-39 Min Completed 09/01/2020 17875 Office/Outpatient Established Lo w MDM 20-29 Min Completed Encounters Type Date Location Provider Dx Diagnosis Office Visit 12/03/2020 11:00a [facility] Fernanda Warren NP I 10 Essential (primary) hypertension K21.9 Gastro-esophageal reflux dis ease without esophagitis E78.5 Hyperlipidemia, unspecified E55.9 Vitamin D deficiency, unspec ified Office Visit 09/01/2020 11:00a [facility] Fernanda Warren NP I 10 Essential (primary) hypertension E78.5 Hyperlipidemia, unspecified K21.9 Gastro-esophageal reflux dis ease without esophagitis Assessments Date Code Description Provider 12/29/2020 I70.219 Atherosclerosis of n ative arteries of extremities with intermittent claudication, unspecified extremity Carl Singh M.D[facility] 12/03/2020 I10 Essential (primary) hypertension Fernanda Warren NP 12/03/2020 K21.9 Gastro-esophageal reflux disease without esophagitis Fernanda Warren NP 12/03/2020 E78.5 Hyperlipidemia, unspecified Jonathan Warren NP 12/03/2020 E55.9 Vitamin D deficiency, unspecifie d Fernanda Warren NP 09/01/2020 I10 Essential (primary) hypertension Fernanda Warren NP 09/01/2020 E78.5 Hyperlipidemia, unspecified Jonathan Warren NP 09/01/2020 K21.9 Gastro-esophageal reflux disease without esophagitis Fernanda Warren NP Plan of Treatment Future Appointment(s):* 03/04/2021 10:30 am - Fernanda Warren NP at [facility] 12/03/2020 - Fernanda Warren NP* I10 Essential (primary) hypertension * K21.9 Gastro-esophageal reflux disease without esophagitis * E78.5 Hyperlipidemia, unspecified * E55.9 Vitamin D deficiency, unspecified Referrals Refer to Reason for Referral Status Appt Date Carl Singh M.D. Created [address] [place] [address] [phone] Carlos Dubon MD Please eval and treat patien t with history GERD and is due for upper and lower scopes Created [address] [address] [phone]
--- OUTSIDE RECORDS SUMMARY | 2021-01-26 09:07 | CCD | Continuity of Care Document ---
Author Author Marissa FERRELL M.D. P. C. Organization Unknown Address [address] [place] [id number] Phone [phone] Care Team Providers Care Aligner Name Role Phone Carlos Dubon MD AUTM [phone] FERNANDA WARREN NP AUTM [phone] Problems Active Problems Provider Date H/O: depression [...] take one tablet by mouth daily Rufino Ferrell,P.C. Fish Oil [place]-3 1000mg Capsules 1 by mouth twice a day Carl Singh M.D.,[facility]. Cranberry Fruit Concentrate High Potency [id number] Capsules twice daily Carl Singh M.D.,P.C. Co-Enzyme [...] Singh M.D.,P .C. Vitamin D (Ergocalciferol) 1.25mg (43112 Ut) Capsules Take One Capsule By Mouth Once Monthly Un known Simvastatin 40mg Tablets take one tablet by mouth once daily in the evening 90tabs Carl Singh M.D.,P.[facility]. Montelukast Sodium 10mg Tablets Take One Tablet By Mouth Once Daily 90tabs Carl Singh M.D.,[facility]. [facility]. Citalopram Hydrobromide 20mg Table ts take one tablet by mouth once daily 90tabs Rufino Ferrell,P.C. Atenolol 50mg Tablets take one tablet by [...] H/L Range Note Complete Blood Count 11/24/[address] [address] [phone] White Blood Count 5.4 10 Normal 4.0-10.0 [...] % Normal 0-0 Comprehensive Metabolic Profil 11/24/[address] [id number] [phone] Glucose, Fasting 83 mg/dL Normal 70-100 Blood [...] Ratio 1.4 Normal 1.2-2.2 Lipid Panel 11/24/[address] [id number] [phone] Triglycerides Level 80 mg/dL Normal <150 Cholesterol Level 164 mg/dL Normal <200 HDL Cholesterol 61 mg/dL Normal >40 LDL Cholesterol 87 mg/dL Normal <100 Non-HDL-C 103 mg/dL Normal Cholesterol Risk Ratio 2.688 Normal <5 Laboratory test finding 11/24/[address] [address] [phone] CPK Creatine Phosphokinase 66 U/L Normal 26-19 2 Total 25(Oh) Vitamin D 43.9 NG/ML Normal 30.0-100.0 Complete Blood Count 08/25/[address] [address] [phone] White Blood Count 4.0 10 Normal 4.0-10.0 [...] % Normal 0-0 Comprehensive Metabolic Profil 08/25/[address] [address] [phone] Glucose, Fasting 91 mg/dL Normal 70-100 Blood [...] Ratio 1.5 Normal 1.2-2.2 Lipid Panel 08/25/[address] [address] [phone] Triglycerides Level 71 mg/dL Normal <150 Cholesterol Level 273 mg/dL High <200 HDL Cholesterol 65 mg/dL Normal >40 LDL Cholesterol 194 mg/dL High <100 Non-HDL-C 208 mg/dL Normal Cholesterol Risk Ratio 4.200 Normal <5 Laboratory test finding 08/25/[address] [address] [phone] CPK Creatine Phosphokinase 97 U/L Normal 26-19 [...] Little GFR Left ESRD GFR <15 on DYNAMITER 2 Units are mL/min/1.73 m2 Chronic Kidney Disease Staging per NKF: Stage I & II GFR >=60 Normal to Mildly Decreased Stage III GFR 30-59 Moderately Decreased Stage IV GFR 15-29 Severely Decreased Stage V GFR <15 Very Little GFR Left ESRD GFR <15 on DYNAMITER Procedures Date Code Description Status 12/29/2020 73480 Arterial Studies Completed 12/03/2020 85513 Office/Outpatient Established Mo d MDM 30-39 Min Completed 09/01/2020 68947 Office/Outpatient Established Lo w MDM 20-29 Min Completed Encounters Type Date Location Provider Dx Diagnosis Office Visit 12/03/2020 11:00a [facility] Fernanda Warren NP I 10 Essential (primary) hypertension K21.9 Gastro-esophageal reflux dis ease without esophagitis E78.5 Hyperlipidemia, unspecified E55.9 Vitamin D deficiency, unspec ified Office Visit 09/01/2020 11:00a [facility] Fernanda Warren NP I 10 Essential [...] 10:30 am - Fernanda Warren NP at [facility] 12/03/2020 - Fernanda Warren NP* I10 Essential (primary) hypertension * K21.9 Gastro-esophageal reflux disease without esophagitis * E78.5 Hyperlipidemia, unspecified * E55.9 Vitamin D deficiency, unspecified Referrals Refer to Dr Reason for Referral Status Appt Date Carl Singh M.D. Created [address] [place] [address] [phone] Carlos Dubon MD Please eval and treat patien t with history GERD and is due for upper and lower scopes Created [address] [address] [phone]
--- OUTSIDE RECORDS SUMMARY | 2021-01-26 09:07 | CCD | Continuity of Care Document ---
Author Author Marissa Wood Organization Unknown Address [address] [place] [address] Phone [phone] Care Team Providers Care Cloth Winding Supervisor Name Role Phone Fernanda Warren AUTM [phone] Problems Description No Information Available Social History Type Date Description Comments Sex Unknown Allergies and adverse reactions Description No Information Available Medications Active Medications SIG Qnty Indications Ordering Provide r Date Tylenol 8 Hour 650mg Tablets CRYSTAL Andrews M.D. 07/13/2018 Immunizations Description No Information Available Vital Signs Description No Information Available Results Description No Information Available Procedures Date Code Description Status 12/16/2020 93471 EEG Recording Awake & Asleep Com pleted 12/16/2020 72436 EEG Recording Awake & Asleep Com pleted 12/07/2020 56947 Polysomnography Sleep Staging 4+ Parameters Completed 11/04/2020 92117 Office/Outpatient Established Mo d MDM 30-39 Min Completed 11/04/2020 3288F Fall Risk Assessment Documented Completed 07/26/2020 26962 MRI Brain W/O Contrast Completed 07/26/2020 33271 MRI Brain W/O Contrast Completed 07/21/2020 22758 Office/Outpatient Established Mo d MDM 30-39 Min Completed Medical Devices Description No Information Available Encounters Type Date Location Provider Dx Diagnosis Office Visit 11/04/2020 10:15a Main office - Samantha Andrews M.D. R26.2 Difficulty in walking, not elsewhere classified G47.00 Insomnia, unspecified M47.897 Other spondylosis, lumbosacr al region R20.2 Paresthesia of skin I73.9 Peripheral vascular disease, unspecified M62.838 Other muscle spasm R25.8 Other abnormal involuntary m ovements Office Visit 07/21/2020 8:45a Main office - [place] Justina Darryl , M.DMc G47.00 Insomnia, unspecified R25.8 Other abnormal involuntary m ovements M47.897 Other spondylosis, lumbosacr al region M62.838 Other muscle spasm R20.2 Paresthesia of skin G62.89 Other specified polyneuropat hies Assessments Date Code Description Provider 12/16/2020 R41.82 Altered mental status, unspecifi ed Justina Darryl, M.D. 12/16/2020 R41.82 Altered mental status, unspecifi ed EEG 12/07/2020 G47.33 Obstructive sleep apnea (adult) (pediatric) Allison Adam M.D. 12/07/2020 G47.61 Periodic limb movement disorder Allison Adam M.D. 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 11/04/2020 R26.2 Difficulty in walking, not elsew here classified Justina Darryl, M.DMc 11/04/2020 G47.00 Insomnia, unspecified Justina Lat if, M.D. 11/04/2020 M47.897 Other spondylosis, lumbosacral r egion Justina Darryl, M.D. 11/04/2020 R20.2 Paresthesia of skin Justina Darryl , M.D. 11/04/2020 I73.9 Peripheral vascular disease, uns pecified Justina Darryl, M.D. 11/04/2020 M62.838 Other muscle spasm Justina Darryl, M.D. 11/04/2020 R25.8 Other abnormal involuntary movem ents Justina Darryl, M.D. 07/26/2020 G60.9 Hereditary and idiopathic neurop athy, unspecified Hallie Darryl, M.D. 07/26/2020 G60.9 Hereditary and idiopathic neurop athy, unspecified MRI 07/26/2020 R26.2 Difficulty in walking, not elsew here classified Hallie Darryl, M.D. 07/26/2020 R26.2 Difficulty in walking, not elsew here classified MRI 07/21/2020 G47.00 Insomnia, unspecified Justina baltazar M.D. 07/21/2020 R25.8 Other abnormal involuntary movem ents Justina Andrews M.D. 07/21/2020 M47.897 Other spondylosis, lumbosacral r egion Justina Andrews M.D. 07/21/2020 M62.838 Other muscle spasm Justina Andrews M.D. 07/21/2020 R20.2 Paresthesia of skin Justina Andrews M.D. 07/21/2020 G62.89 Other specified polyneuropathies Justina Andrews M.D. Plan of Treatment Future Appointment(s):* 02/12/2021 9:45 am - Justina Andrews M.D. at Main office - [place] Functional Status Description No Information Available Mental Status Description No Information Available Referrals Description No Information Available
--- OUTSIDE RECORDS SUMMARY | 2021-01-26 09:08 | CCD | Continuity of Care Document ---
Author Author [facility]issa [facility] Organization Unknown Address [address], [address] [place] [address] Phone [phone] Care Team Providers Care Hair Spinner Name Role Phone Lissy Quevedo.N.PMc-C AUTM Fernanda Warren.N.PMc AUTM [phone] Problems Active Problems Provider Date Essential hypertension Onset: Hyperlipidemia Onset: History of malignant neoplasm of bladder Onset: Chronic atrial fibrillation Onset: Social History Type Date Description Comments Sex Unknown ETOH Use Rarely Tobacco Use Start: Unknown End: Unknown Patient is a former smoker Allergies and adverse reactions Active Allergies Criticality Reaction | Severity Comments Date Ibuprofen Unable to assess criticality Rash 09/30/2010 Environmental Unable to assess criticality 09/30/2010 Medications Active Medications SIG Qnty Indications Ordering Provide r Date Dulcolax 5mg Tablets DR take 4 tabs by mouth prior to procedure per instructions. 4tabs Z12.11 Celso Lara MD 12/26/2020 Suprep Bowel Prep Kit 17.5-3.13-1.6GM/177ML Solution take per doctor's bowel prep instructions. 354ml Z12.1 1 Celso Lara MD 12/26/[address] 1 po daily 180caps Greg Sabillon, 09/30/2010 Preservision Areds 2 Areds 2 Capsules bid Unknown Citalopram Hydrobromide 20mg Table ts 1 by mouth every day Unknown Vitamin D (Ergocalciferol) 1.25mg (94247 Ut) Capsules once per month Unknown Slow Fe 142(45Fe) mg Tablets ER twice per week Unknown Oil Of Oregano 1500mg Capsules takes 230 mg prn Unknown Cranberry 12,600 mg bid Unknown Calcium 600+D [id number] Tablets bid Unknown Vitamin B Complex Tablets 1 weekly Unknown Losartan Potassium 25mg Tablets 1 by mouth every day Unknown Magnesium 250mg Tablets 2 twice weekly Unknown Zyrtec Allergy 10mg Tablets 1 by mouth every day Unknown Hydrocortisone 1% Cream prn Unknown Senior Multivitamin Plus Tablets 1 Am Unknown Fish Oil Concentrate 1000mg Capsul es 1 po bid Unknown Coenzyme Q-10 200mg Capsules 1 qam Unknown Chromium Picolinate 500mcg Tablets 1 Q Am Unknown Vesicare 5mg Tablets 1 Q Am Unknown Singulair 10mg Tablets 1 po q d 30tabs Unknown Simvastatin 40mg Tablets 1 @ hs Unknown Atenolol 50mg Tablets 1 po qd Unknown Immunizations Description No Information Available Vital Signs Date Vital Result Comment 12/26/2020 9:35am BP Systolic 126 mmHg BP Diastolic 70 mmHg Height 66 inches 5'6" Weight 160.00 lb BMI (Body Mass Index) 25.8 kg/m2 [place] Body Weight 130 lb Weight 72.576 kg BSA (Body Surface Area) 1.82 m2 01/31/2018 10:59am BP Systolic 122 mmHg BP Diastolic 72 mmHg Heart Rate 48 /min O2 % BldC Oximetry 99 % Respiratory Rate 18 /min Body Temperature 99.0 F Height 66 inches 5'6" Weight 155.00 lb BMI (Body Mass Index) 25.0 kg/m2 [place] Body Weight 130 lb Weight 70.308 kg BSA (Body Surface Area) 1.79 m2 Results Description No Information Available Procedures Description No Information Available Medical Devices Description No Information Available Encounters Description No Information Available Assessments Date Code Description Provider 12/26/2020 Z12.11 Encounter for screening for óscar gnant neoplasm of colon LUISA Valdivia 12/26/2020 R12 Heartburn LUISA Hay Plan of Treatment 12/26/2020 - LUISA Valdivia* Z12.11 Encounter for screening for malignant neoplasm of colon * R12 Heartburn * * New Medication:* Suprep Bowel Prep Kit 17.5-3.13-1.6 GM/177ML * Dulcolax 5 mg * New Orders:* Colonoscopy, Ordered: 12/26/20 * Comments:* Will arrange for upper endoscopy and colonoscopy. Reviewed risks and benefits of the procedures, as well as other options, with the patient. Prep for this procedure was discussed with patient, including risks and side effects associated with the prep. Patient verbalized understanding of all of the above and is in agreement to proceed. Patient will seek medical attention for any acute changes. Will monitor. * Follow up:* As scheduled, sooner if needed. Functional Status Description No Information Available Mental Status Description No Information Available Referrals Refer to Reason for Referral Status Appt Date Tim Dubon M.D. GERD / COLO SCREEN Scheduled 1 [facility] [address], [address] [place] [address] [phone]
--- OUTSIDE RECORDS SUMMARY | 2021-01-26 09:08 | CCD | Continuity of Care Document ---
Author Author Marissa ELDER Organization Unknown Address [address] [place] [address] Phone [phone] Care Team Providers Care Bulldozer Engineer Name Role Phone Fernanda Warren AUTM [phone] Problems Description No Information Available Social History Type Date Description Comments Sex Unknown Allergies and adverse reactions Description No Information Available Medications Active Medications SIG Qnty Indications Ordering Provide r Date Tylenol 8 Hour 650mg Tablets CRYSTAL Andrews M.D. 07/13/2018 Immunizations Description No Information Available Vital Signs Description No Information Available Results Description No Information Available Procedures Date Code Description Status 12/16/2020 07171 EEG Recording Awake & Asleep Com pleted 12/16/2020 60360 EEG Recording Awake & Asleep Com pleted 11/04/2020 86793 Office/Outpatient Established Mo d MDM 30-39 Min Completed 11/04/2020 3288F Fall Risk Assessment Documented Completed 07/26/2020 19908 MRI Brain W/O Contrast Completed 07/26/2020 79666 MRI Brain W/O Contrast Completed 07/21/2020 47917 Office/Outpatient Established Mo d MDM 30-39 Min Completed Medical Devices Description No Information Available Encounters Type Date Location Provider Dx Diagnosis Office Visit 11/04[place] 10[place] R26.2 Difficulty in walking, not elsewhere classified G47.00 Insomnia, unspecified M47.897 Other spondylosis, lumbosacr al region R20.2 Paresthesia of skin I73.9 Peripheral vascular disease, unspecified M62.838 Other muscle spasm R25.8 Other abnormal involuntary m ovements Office Visit 07/21/2020 8:45a Main office - [place] Justina Darryl , M.D. G47.00 Insomnia, unspecified R25.8 Other abnormal involuntary m ovements M47.897 Other spondylosis, lumbosacr al region M62.838 Other muscle spasm R20.2 Paresthesia of skin G62.89 Other specified polyneuropat hies Assessments Date Code Description Provider 12/16/2020 R41.82 Altered mental status, unspecifi ed Justina Darryl, M.D. 12/16/2020 R41.82 Altered mental status, unspecifi ed EEG 11/04/2020 R26.2 Difficulty in walking, not elsew here classified Justina Darryl, M.D. 11/04/2020 G47.00 Insomnia, unspecified Justina Lat if, [...] classified MRI 07/21/2020 G47.00 Insomnia, unspecified Justina Lat if, M.D. 07/21/2020 R25.8 Other abnormal involuntary movem ents Justina Darryl, M.D. 07/21/2020 M47.897 Other spondylosis, lumbosacral r egion Justina Darryl, M.D. 07/21/2020 M62.838 Other muscle spasm Justina Darryl, M.D. 07/21/2020 R20.2 Paresthesia of skin Justina Andrews M.D. 07/21/2020 G62.89 Other specified polyneuropathies Justina Andrews M.D. Plan of Treatment Future Appointment(s):* 02/12/2021 9:45 am - Justina Andrews M.D. at Main office - [place] Functional Status Description No Information Available Mental Status Description No Information Available Referrals Description No Information Available
--- OUTSIDE RECORDS SUMMARY | 2021-01-26 09:08 | CCD | Continuity of Care Document ---
Author Author Marissa ZHANG Organization Unknown Address [address] [place] [address] Phone [phone] Care Team Providers Care Temperature Regulator Pyrometer Name Role Phone Briana Michael MOLD ENGRAVER AUTM [phone] Problems Active Problems Provider Date Midline cystocele Ariane Zhang MD Onset: 09/27/2014 Incomplete uterovaginal prolapse Ariane Zhang MD Onset: 09/27/2014 Herniation of rectum into vagina Ariane Zhang MD Onset: 09/27/2014 Atrophic vaginitis Ariane Zhang MD Onset: 09/27/2014 Female stress incontinence Ariane Zhang MD Onset: 2014 Incontinence of feces Ariane Zhang MD Onset: 09/27/2014 Social History Type Date Description Comments Sex Unknown ETOH Use Non-smoker, Occasional Drinker, Non-drug User Tobacco Use Start: Unknown End: Unknown Patient is a former smoker Smoking Status Reviewed: 11/24/20 Patient is a former smoker Exercise Type/Frequency Exercises regularly Allergies, Adverse Reactions, Alerts Active Allergies Criticality Reaction | Severity Comments Date animal dander Unable to assess criticality 02/21/2006 seasonal Unable to assess criticality 02/21/2006 cigarette smoke Unable to assess criticality 02/21/2006 Ibuprofen Unable to assess criticality 02/21/2006 trees Unable to assess criticality 09/27/2014 Perfume Unable to assess criticality 09/27/2014 Mold Unable to assess criticality 09/27/2014 Feathers Unable to assess criticality 09/27/2014 Medications Active Medications SIG Qnty Indications Ordering Provide r Date Solifenacin Succinate 10mg Tablets Take One Tablet By Mouth Every Day 90tabs Ariane Zhang MD 11/14/2020 Alpha Lipoic Acid 300 mg am and pm Sachin Marcos in, JOVANI 10/24/2018 Simvastatin 40mg Tablets 1 daily at hs Brittny Marcos WHNP 10/24/2018 Citalopram Hydrobromide 20mg Tablets Unknown Losartan Potassium 25mg Tablets Unknown Preservision Areds 2 Areds 2 Capsules Unknown Vitamin D (Ergocalciferol) 1.25mg (25963 Ut) Capsules one by mouth weekly Unknown 00 Iron (Ferrous Sulfate) 142(45Fe) mg Tablets ER Unknown Zyrtec Allergy 10mg Tablets Dispers Unknown Omeprazole 40mg Capsules DR Unknown Acetaminophen 1000mg Tablets Unknown Magnesium 250mg Tablets one by mouth daily Unknown Atenolol 50mg Tablets one by mouth daily Unknown Oil Of Oregano 230mg Capsules am pm and prn Unknown Hydrocortisone 1% Cream bi d prn eczema Unknown Senior Abc Plus one po daily Unknown 000 Singulair 10mg Tablets one po daily Unknown Fish Oil +Gail 3 1000mg Capsules one po daily Unknown Cranberry Fruit Concentrate High Potency [id number] Capsules one po daily Unknown Coenzyme Q-10 200mg Capsules one po daily Unknown Chromium Picolinate Ultra 500mcg T ablets one po daily Unknown Calcium Carbonate-Vitamin D3 [id number] Tablets one po daily Unknown B-50 Tablets one every other day day Brittny Marcos WHNP Immunizations Description No Information Available Vital Signs Date Vital Result Comment 11/24/2020 11:59am BP Systolic 166 mmHg BP Diastolic 84 mmHg Height 65.75 inches 5'5.75" Weight 155.00 lb BMI (Body Mass Index) 25.2 kg/m2 BSA (Body Surface Area) 1.79 m2 10/24/2018 11:24am BP Systolic 136 mmHg BP Diastolic 70 mmHg Heart Rate 64 /min Height 65.75 inches 5'5.75" Weight 154.00 lb BMI (Body Mass Index) 25.0 kg/m2 BSA (Body Surface Area) 1.78 m2 1 Parity 1 Results Description No Information Available Procedures Date Code Description Status 11/24/2020 33277 Preventive Visit Est > 64 Yrs C ompleted 04/24/2019 [id number] Mammogram Completed 01/24/2018 89509697 Mammogram Completed 01/27/2006 743096544 Bone Mineral Density Test Comple [employer] Description No Information Available Encounters Type Date Location Provider Dx Diagnosis Office Visit 11/24/2020 11:30a [facility] torch straightener and heater Ariane Zhang MD Z0 1.419 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) (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) w/o abn findings Z12.4 Encounter for screening for malignant neoplasm of cervix Z12.39 Encounter for oth screening for malignant neoplasm of breast N95.1 Menopausal and female climac teric states N39.41 Urge incontinence N95.2 Postmenopausal atrophic vagi nitis N81.2 Incomplete uterovaginal prol apse Assessments Date Code Description Provider 11/24/2020 Z01.419 Encounter for gyneco logical examination (general) (routine) without abnormal findings Ariane Zhang MD 11/24/2020 Z12.4 Encounter for screening for óscar gnant neoplasm of cervix Ariane Zhang MD 11/24/2020 Z12.39 Encounter for other screening for malignant neoplasm of breast Ariane Zhang MD 11/24/2020 N95.1 Menopausal and female climacteri c states Ariane Zhang MD 11/24/2020 N39.41 Urge incontinence Ariane Zhang MD 11/24/2020 N95.2 Postmenopausal atrophic vaginiti s Ariane Zhang MD 11/24/2020 N81.2 Incomplete uterovaginal prolapse Ariane Zhang MD Plan of Treatment Future Appointment(s):* 11/29/2022 11:30 am - Ariane Zhang MD at [facility] straight[facility] 11/24/2020 - Ariane Zhang MD* Z01.419 Encounter for gynecological examination (general) (routine) without abnormal findings * Z12.4 Encounter for screening for malignant neoplasm of cervix* New Labs:* Thinprep W/Reflex HR HPV If Asc-US, Ordered: 11/24/20 * Z12.39 Encounter for other screening for malignant neoplasm of breast * N95.1 Menopausal and female climacteric states * N39.41 Urge incontinence * N95.2 Postmenopausal atrophic vaginitis * N81.2 Incomplete uterovaginal prolapse Functional Status Description No Information Available Mental Status Description No Information Available Referrals Description No Information Available
--- OUTSIDE RECORDS SUMMARY | 2021-01-26 09:08 | CCD | Continuity of Care Document ---
Author Author Marissa GARCIAS NP Organization Unknown Address [address] [place] [address] Phone [phone] Care Team Providers Care Precision Agriculture Technician Name Role Phone Carlos Dubon MD AUTM [phone] FERNANDA WARREN NP AUTM [phone] Problems Active Problems Provider Date H/O: depression [...] SIG Qnty Indications Ordering Provide r Date Vitamin B Complex Tablets On e Weekly Fernanda WOODS Zyrtec Allergy 10mg Capsules 1 tab by mouth twice a day Unknown Vitamin K 100mcg Tablets take one tablet by mouth daily Fernanda SANCHEZP Abc Plus Senior Tablets take one tablet by mouth daily Fernanda SANCHEZP Magnesium Oxide 400(240Mg) mg Tabl ets take one tablet by mouth daily Fernanda SANCHEZP Iron Slow Release 142(45Fe) mg Tab lets ER take one tablet by mouth daily Fernanda SANCHEZP Fish Oil [place]-3 1000mg Capsules 1 by mouth twice a day Fernanda SANCHEZP Cranberry Fruit Concentrate High Potency [id number] Capsules twice daily [facility]-Enzyme Q10 100mg Capsules 2 tablets by mouth daily [facility] Chromium Picolinate 500mcg Tablets take one tablet by mouth daily Fernanda [facility] Calcium + D3 600-200 Tablets 1 by mouth twice a day 180tabs [facility] Losartan Potassium 25mg Tablets take one tablet by mouth once daily 90tabs Fernanda Veto [facility] Alpha-Lipoic Acid 300mg Capsules bid Fernanda [facility] Preservision Areds 2 Areds 2 Capsu les 1 by mouth twice a day 180caps Fernanda [facility] [address] take one capsule by mouth once daily 90caps [facility] Vitamin D (Ergocalciferol) 1.25mg (83877 Ut) Capsules Take One Capsule By Mouth Once Monthly Un known Simvastatin 40mg Tablets take one tablet by mouth once daily in the evening 90tabs Fernanda [facility] Montelukast Sodium 10mg Tablets take one tablet by mouth once daily 90tabs Fernanda [facility] Citalopram Hydrobromide 20mg Table ts take one tablet by mouth once daily 90tabs Fernanda [facility] Atenolol 50mg Tablets take one tablet by mouth once daily 90tabs [facility] 0 Solifenacin Succinate 10mg Tablets Take One Tablet By Mouth Every Day Unknown Vital Signs Date Vital Result Comment 12/03/2020 10:54am Height 66 inches 5'6" Weight 157.12 lb BMI (Body Mass Index) 25.4 kg/m2 Body Temperature 97.7 F BP Systolic 121 mmHg BP Diastolic 63 mmHg Heart Rate 68 /min O2 % BldC Oximetry 95 % 09/01/2020 11:45am Height 66 inches 5'6" Weight 153.50 lb BMI (Body Mass Index) 24.8 kg/m2 Body Temperature 97.2 F BP Systolic 129 mmHg BP Diastolic 73 mmHg Heart Rate 74 /min O2 % BldC Oximetry 97 % Results Test Acquired Date Facility Test Result H/L Range Note Complete Blood Count 11/24/[address] [id number] [phone] White Blood Count 5.4 10 Normal 4.0-10.0 [...] % Normal 0-0 Comprehensive Metabolic Profil 11/24/[address] [id number] [phone] Glucose, Fasting 83 mg/dL Normal 70-100 Blood [...] Ratio 1.4 Normal 1.2-2.2 Lipid Panel 11/24/[address] [address] [phone] Triglycerides Level 80 mg/dL Normal <150 Cholesterol Level 164 mg/dL Normal <200 HDL Cholesterol 61 mg/dL Normal >40 LDL Cholesterol 87 mg/dL Normal <100 Non-HDL-C 103 mg/dL Normal Cholesterol Risk Ratio 2.688 Normal <5 Laboratory test finding 11/24/[address] [address] [phone] CPK Creatine Phosphokinase 66 U/L Normal 26-19 2 Total 25(Oh) Vitamin D 43.9 NG/ML Normal 30.0-100.0 Complete Blood Count 08/25/[address] [address] [phone] White Blood Count 4.0 10 Normal 4.0-10.0 [...] % Normal 0-0 Comprehensive Metabolic Profil 08/25/[address] [address] [phone] Glucose, Fasting 91 mg/dL Normal 70-100 Blood [...] Ratio 1.5 Normal 1.2-2.2 Lipid Panel 08/25/2020 [place] [id number] [phone] Triglycerides Level 71 mg/dL Normal <150 Cholesterol Level 273 mg/dL High <200 HDL Cholesterol 65 mg/dL Normal >40 LDL Cholesterol 194 mg/dL High <100 Non-HDL-C 208 mg/dL Normal Cholesterol Risk Ratio 4.200 Normal <5 Laboratory test finding 08/25/[address] [address] [phone] CPK Creatine Phosphokinase 97 U/L Normal 26-19 [...] Little GFR Left ESRD GFR <15 on SUPERVISOR NUT PROCESSING 2 Units are mL/min/1.73 m2 Chronic Kidney Disease Staging per NKF: Stage I & II GFR >=60 Normal to Mildly Decreased Stage III GFR 30-59 Moderately Decreased Stage IV GFR 15-29 Severely Decreased Stage V GFR <15 Very Little GFR Left ESRD GFR <15 on SUPERVISOR NUT PROCESSING Procedures Date Code Description Status 12/03/2020 28395 Office/Outpatient Established Mo d MDM 30-39 Min Completed 09/01/2020 98422 Office/Outpatient Established Lo w MDM 20-29 Min Completed Encounters Type Date Location Provider Dx Diagnosis Office Visit 12/03/2020 11:00a [facility] Fernanda Warren NP I 10 Essential (primary) hypertension K21.9 Gastro-esophageal reflux dis ease without esophagitis E78.5 Hyperlipidemia, unspecified E55.9 Vitamin D deficiency, unspec ified Office Visit 09/01/2020 11:00a [facility] Fernanda Warren NP I 10 Essential (primary) hypertension E78.5 Hyperlipidemia, unspecified K21.9 Gastro-esophageal reflux dis ease without esophagitis Assessments Date Code Description Provider 12/03/2020 I10 Essential (primary) hypertension Fernanda Warren [...] 10:30 am - Fernanda Warren NP at [facility] * 12/08/2020 3:00 pm - Fernanda Warren COVER MARKER at [facility] 12/03/2020 - Fernanda Warren NP* I10 Essential (primary) hypertension * K21.9 Gastro-esophageal reflux disease without esophagitis * E78.5 Hyperlipidemia, unspecified * E55.9 Vitamin D deficiency, unspecified Referrals Refer to Reason for Referral Status Appt Date Carlos Dubon MD Please eval and treat patien t with history GERD and is due for upper and lower scopes Created [address] [place] [address] [phone]
--- OUTSIDE RECORDS SUMMARY | 2021-01-26 09:08 | CCD | Continuity of Care Document ---
Author Author Marissa ZHANG Organization Unknown Address [address] [place] [address] Phone [phone] Care Team Providers Care Wire Tester Name Role Phone Briana Michael PROJECT ADMINISTRATOR AUTM [phone] Problems Active Problems Provider Date Midline cystocele [...] 2 Capsules Unknown Vitamin D (Ergocalciferol) 1.25mg (68176 Ut) Capsules one by mouth weekly Unknown [...] Tablets one po daily Unknown Fish Oil +[place] 3 1000mg Capsules one po daily Unknown Cranberry Fruit Concentrate High Potency [id number] Capsules one po daily Unknown Coenzyme Q-10 200mg Capsules one po daily Unknown Chromium Picolinate Ultra 500mcg T ablets one po daily Unknown Calcium Carbonate-Vitamin D3 [id number] Tablets one po daily Unknown B-50 Tablets [...] Area) 1.78 m2 1 Parity 1 Results Test Acquired Date Facility Test Result H/L Range Note Thinprep W/Reflex HR HPV If Asc-US 11/24/2020 Propa th TP Reflex HPV ASCUS Normal Normal 1 TP Reflex HPV ASCUS SEE IMAGE 1 SPECIME N PART A. Cervical, Endocervical, ThinPrep Pap (Combustion Engineer) CYTOLOGY HX-------- Other Information: Post-menopausal Previous Normal Pap: 10/24/18 FINAL DIAGNOSIS---- INTERPRETATION: Negative for Intraepithelial Lesion or Malignancy. SPECIMEN ADEQUACY:Satisfactory for evaluation. Endocervical/transformation zone component present. ADDITIONAL FINDINGS:Atrophic pattern. Procedures Date Code Description Status 11/24/2020 34325 Preventive Visit Est > 64 Yrs C ompleted 04/24/2019 [id number] Mammogram Completed 01/24/2018 [id number] Mammogram Completed 01/27/2006 [id number] Bone Mineral Density Test Comple [employer] 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) w/o abn findings Z12.4 [...] 11:30 am - Ariane Zhang MD at [facility] senior asic engineer 11/24/2020 - Ariane Zhang MD* Z01.419 Encounter for gynecological examination (general) (routine) without abnormal findings * Z12.4 Encounter for screening for malignant neoplasm of cervix * Z12.39 Encounter for other screening for malignant neoplasm of breast * N95.1 Menopausal and female climacteric states * N39.41 Urge incontinence * N95.2 Postmenopausal atrophic vaginitis * N81.2 Incomplete uterovaginal prolapse Functional Status Description No Information Available Mental Status Description No Information Available Referrals Description No Information Available
--- OUTSIDE RECORDS SUMMARY | 2021-01-26 09:08 | CCD | Continuity of Care Document ---
Author Author Marissa FERRELL M.D. P. C. Organization Unknown Address [address] [place] [address] Phone [phone] Care Team Providers Care Oncology Admin Name Role Phone Carlos Dubon MD AUTM [phone] FERNANDA WARREN NP AUTM [phone] Problems Active Problems Provider Date H/O: depression [...] by mouth daily Rufino Ferrell,P.C. Fish Oil Hur[place]-3 1000mg Capsules 1 by mouth twice a day Carl Singh M.D.,P.C. Cranberry Fruit Concentrate High Potency 93034da Capsules twice daily Carl Singh M.D.,P.C. Co-Enzyme [...] Singh M.D.,P .C. Vitamin D (Ergocalciferol) 1.25mg (22811 Ut) Capsules Take One Capsule By Mouth [...] one tablet by mouth once daily 90tabs Calr Singh M.D.,P.C. 000 Solifenacin Succinate 10mg Tablets [...] H/L Range Note Complete Blood Count 11/24/[address] [address] [phone] White Blood Count 5.4 10 Normal 4.0-10.0 [...] % Normal 0-0 Comprehensive Metabolic Profil 11/24/[address] [id number] [phone] Glucose, Fasting 83 mg/dL Normal 70-100 Blood [...] Ratio 1.4 Normal 1.2-2.2 Lipid Panel 11/24/[address] [id number] [phone] Triglycerides Level 80 mg/dL Normal <150 Cholesterol Level 164 mg/dL Normal <200 HDL Cholesterol 61 mg/dL Normal >40 LDL Cholesterol 87 mg/dL Normal <100 Non-HDL-C 103 mg/dL Normal Cholesterol Risk Ratio 2.688 Normal <5 Laboratory test finding 11/24/[address] [address] [phone] CPK Creatine Phosphokinase 66 U/L Normal 26-19 2 Total 25(Oh) Vitamin D 43.9 NG/ML Normal 30.0-100.0 Complete Blood Count 08/25/[address] [address] [phone] White Blood Count 4.0 10 Normal 4.0-10.0 [...] % Normal 0-0 Comprehensive Metabolic Profil 08/25/[address] [address] [phone] Glucose, Fasting 91 mg/dL Normal 70-100 Blood [...] Ratio 1.5 Normal 1.2-2.2 Lipid Panel 08/25/[address] [address] [phone] Triglycerides Level 71 mg/dL Normal <150 Cholesterol Level 273 mg/dL High <200 HDL Cholesterol 65 mg/dL Normal >40 LDL Cholesterol 194 mg/dL High <100 Non-HDL-C 208 mg/dL Normal Cholesterol Risk Ratio 4.200 Normal <5 Laboratory test finding 08/25/[address] [address] [phone] CPK Creatine Phosphokinase 97 U/L Normal 26-19 [...] Little GFR Left ESRD GFR <15 on PRODUCT CRAFTSMAN 2 Units are mL/min/1.73 m2 Chronic Kidney Disease Staging per NKF: Stage I & II GFR >=60 Normal to Mildly Decreased Stage III GFR 30-59 Moderately Decreased Stage IV GFR 15-29 Severely Decreased Stage V GFR <15 Very Little GFR Left ESRD GFR <15 on PRODUCT CRAFTSMAN Procedures Date Code Description Status 12/03/2020 88079 Office/Outpatient Established Mo d MDM 30-39 Min Completed 09/01/2020 20328 Office/Outpatient Established Lo w MDM 20-29 Min Completed Encounters Type Date Location Provider Dx Diagnosis Office Visit 12/03/2020 11:[address]a [facility] Fernanda Warren NP I 10 Essential (primary) hypertension K21.9 Gastro-esophageal reflux dis ease without esophagitis E78.5 Hyperlipidemia, unspecified E55.9 Vitamin D deficiency, unspec ified Office Visit 09/01/2020 11:[address]a [facility] Fernanda Warren NP I 10 Essential [...] 10:30 am - Fernanda Warren NP at [facility] 12/03/2020 - Fernanda Warren NP* I10 Essential (primary) hypertension * K21.9 Gastro-esophageal reflux disease without esophagitis * E78.5 Hyperlipidemia, unspecified * E55.9 Vitamin D deficiency, unspecified Referrals Refer to Reason for Referral Status Appt Date Carl Singh M.D. Created [address] [place] [address] [phone] Carlos Dubon MD Please eval and treat patien t with history GERD and is due for upper and lower scopes Created [address] [id number] [phone]
--- OUTSIDE RECORDS SUMMARY | 2021-01-26 09:08 | CCD | Continuity of Care Document ---
Author Author Marissa ELDER Organization Unknown Address [address] [place] [address] Phone [phone] Care Team Providers Care Medical Office Technician Name Role Phone Fernanda Warren AUTM [phone] Problems Description No Information Available Social History Type Date Description Comments Sex Unknown Allergies and adverse reactions Description No Information Available Medications Active Medications SIG Qnty Indications Ordering Provide r Date Tylenol 8 Hour 650mg Tablets ER Hallie Andrews M.D. 07/13/2018 Immunizations Description No Information Available Vital Signs Description No Information Available Results Description No Information Available Procedures Date Code Description Status 11/04/2020 40942 Office/Outpatient Established Mo d MDM 30-39 Min Completed 11/04/2020 3288F Fall Risk Assessment Documented Completed 07/26/2020 23156 MRI Brain W/O Contrast Completed 07/26/2020 86930 MRI Brain W/O Contrast Completed 07/21/2020 77562 Office/Outpatient Established Mo d MDM 30-39 Min Completed Medical Devices Description No Information Available Encounters Type Date Location Provider Dx Diagnosis Office Visit 11/04/2020 10:15a [place] M.[place] R26.2 Difficulty in walking, not elsewhere classified G47.00 Insomnia, unspecified M47.897 Other spondylosis, lumbosacr al region R20.2 Paresthesia of skin I73.9 Peripheral vascular disease, unspecified M62.838 Other muscle spasm R25.8 Other abnormal involuntary m ovements Office Visit 07/21/2020 8:45a [place] M.[place]. G47.00 Insomnia, unspecified R25.8 Other abnormal involuntary m ovements M47.897 Other spondylosis, lumbosacr al region M62.838 Other muscle spasm R20.2 Paresthesia of skin G62.89 Other specified polyneuropat hies Assessments Date Code Description Provider 11/04/2020 R26.2 Difficulty in walking, not elsew [...] M.D. 07/21/2020 R20.2 Paresthesia of skin Justina Darryl , M.D. 07/21/2020 G62.89 Other specified polyneuropathies Justina Andrews M.D. Plan of Treatment Future Appointment(s):* 02/12/2021 9:45 am - Justina Andrews M.D. at [facility] Functional Status Description No Information Available Mental Status Description No Information Available Referrals Description No Information Available
--- OUTSIDE RECORDS SUMMARY | 2021-01-26 09:08 | CCD | Continuity of Care Document ---
Author Author Marissa ANDREWS M.D. Organization Unknown Address [address] [place] [address] Phone [phone] Care Team Providers Care Portfolio Lead Name Role Phone Fernanda Warren AUTM [phone] Problems Description No Information Available Social History Type Date Description Comments Sex Unknown Allergies, Adverse Reactions, Alerts Description No Information Available Medications Active Medications SIG Qnty Indications Ordering Provide r Date Tylenol 8 Hour 650mg Tablets ER Hallie Andrews M.D. 07/13/2018 Immunizations Description No Information Available Vital Signs Description No Information Available Results Description No Information Available Procedures Date Code Description Status 11/04/2020 39088 Office/Outpatient Established Mo d MDM 30-39 Min Completed 11/04/2020 3288F Fall Risk Assessment Documented Completed 07/26/2020 75456 MRI Brain W/O Contrast Completed 07/26/2020 93120 MRI Brain W/O Contrast Completed 07/21/2020 78906 Office/Outpatient Established Mo d MDM 30-39 Min Completed Medical Devices Description No Information Available Encounters Type Date Location Provider Dx Diagnosis Office Visit 11/04/2020 10:15a [place] M.[place] R26.2 Difficulty in walking, not elsewhere classified G47.00 Insomnia, unspecified M47.897 Other spondylosis, lumbosacr al region R20.2 Paresthesia of skin I73.9 Peripheral vascular disease, unspecified M62.838 Other muscle spasm R25.8 Other abnormal involuntary m ovements Office Visit 07/21/2020 8:45a [place] M.[place]. G47.00 Insomnia, unspecified R25.8 Other [...] M.D. 07/21/2020 G62.89 Other specified polyneuropathies Justina Darryl, M.DMc Plan of Treatment Future Appointment(s):* 12/07/2020 7:45 pm - Sleep Study at Main office - [place] * 12/16/2020 2:30 pm - EEG at [facility] * 02/12/2021 10:15 am - Justina Andrews M.D. at [facility] Functional Status Description No Information Available Mental Status Description No Information Available Referrals Description No Information Available
--- OUTSIDE RECORDS SUMMARY | 2021-01-26 09:08 | CCD | Continuity of Care Document ---
Author Author Marissa Wood Organization Unknown Address [address] [place] [address] Phone [phone] Care Team Providers Care Operator Cavity Pump Name Role Phone Fernanda Warren AUTM [phone] Problems Description No Information Available Social History Type Date Description Comments Sex Unknown Allergies and adverse reactions Description No Information Available Medications Active Medications SIG Qnty Indications Ordering Provide r Date Tylenol 8 Hour 650mg Tablets CRYSTAL Andrews M.D. 07/13/2018 Immunizations Description No Information Available Vital Signs Description No Information Available Results Description No Information Available Procedures Date Code Description Status 12/16/2020 68674 EEG Recording Awake & Asleep Com pleted 12/16/2020 63950 EEG Recording Awake & Asleep Com pleted 11/04/2020 34605 Office/Outpatient Established Mo d MDM 30-39 Min Completed 11/04/2020 3288F Fall Risk Assessment Documented Completed 07/26/2020 00245 MRI Brain W/O Contrast Completed 07/26/2020 93541 MRI Brain W/O Contrast Completed 07/21/2020 64526 Office/Outpatient Established Mo d MDM 30-39 Min Completed Medical Devices Description No Information Available Encounters Type Date Location Provider Dx Diagnosis Office Visit 11/04/2020 10:15a [place] M.[place]. R26.2 Difficulty in walking, not elsewhere classified G47.00 Insomnia, unspecified M47.897 Other spondylosis, lumbosacr al region R20.2 Paresthesia of skin I73.9 Peripheral vascular disease, unspecified M62.838 Other muscle spasm R25.8 Other abnormal involuntary m ovements Office Visit 07/21/2020 8:45a Main office - [place] Justina Darryl , M.D. G47.00 Insomnia, unspecified [...] 11/04/2020 R25.8 Other abnormal involuntary movem ents Jusitna Darryl, M.D. 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 at Main office - [place] Functional Status Description No Information Available Mental Status Description No Information Available Referrals Description No Information Available
--- OUTSIDE RECORDS SUMMARY | 2021-01-26 09:08 | CCD | Continuity of Care Document ---
Author Author Marissa Wood Organization Unknown Address [address] [place] [address] Phone [phone] Care Team Providers Care Decorator Inspector Name Role Phone Fernanda Warren AUTM [phone] Problems Description No Information Available Social History Type Date Description Comments Sex Unknown Allergies and adverse reactions Description No Information Available Medications Active Medications SIG Qnty Indications Ordering Provide r Date Tylenol 8 Hour 650mg Tablets CRYSTAL Andrews M.D. 07/13/2018 Immunizations Description No Information Available Vital Signs Description No Information Available Results Description No Information Available Procedures Date Code Description Status 12/16/2020 81584 EEG Recording Awake & Asleep Com pleted 11/04/2020 46149 Office/Outpatient Established Mo d MDM 30-39 Min Completed 11/04/2020 3288F Fall Risk Assessment Documented Completed 07/26/2020 07951 MRI Brain W/O Contrast Completed 07/26/2020 22867 MRI Brain W/O Contrast Completed 07/21/2020 76011 Office/Outpatient Established Mo d MDM 30-39 Min Completed Medical Devices Description No Information Available Encounters Type Date Location Provider Dx Diagnosis Office Visit 11/04/2020 10:15a [place] M.[place] R26.2 Difficulty in walking, not elsewhere classified G47.00 Insomnia, unspecified M47.897 Other spondylosis, lumbosacr al region R20.2 Paresthesia of skin I73.9 Peripheral vascular disease, unspecified M62.838 Other muscle spasm R25.8 Other abnormal involuntary m ovements Office Visit 07/21/2020 8:45a Main office - [place] Justina Darryl , M.D. G47.00 Insomnia, unspecified [...] 07/21/2020 G62.89 Other specified polyneuropathies Justina Darryl, M.D. Plan of Treatment Future Appointment(s):* 02/12/2021 9:45 am - Justina Andrews M.D. at Main office - [place] Functional Status Description No Information Available Mental Status Description No Information Available Referrals Description No Information Available
--- OUTSIDE RECORDS SUMMARY | 2021-01-26 09:08 | CCD | Continuity of Care Document ---
Author Author Marissa GARCIAS NP Organization Unknown Address [address] [place] [address] Phone [phone] Care Team Providers Care Lead Pastor Name Role Phone Carlos Dubon MD AUTM [phone] FERNANDA WARREN NP AUTM [phone] Problems Active Problems Provider Date H/O: depression [...] Complex Tablets On e Weekly Carl Singh M.D., P.C. Zyrtec Allergy 10mg Capsules 1 tab by mouth twice a day Unknown Vitamin K 100mcg Tablets take one tablet by mouth daily Carl Singh M.D., P.C. 0 000 Abc Plus Senior Tablets take one tablet by mouth daily Carl Singh M.D., P.C. 0 000 Magnesium Oxide 400(240Mg) mg Tabl ets take one tablet by mouth daily Carl Singh M.D., P. C. Iron Slow Release 142(45Fe) mg Tab lets ER take one tablet by mouth daily Rufino Duvall, P.C. Fish Oil [place]-3 1000mg Capsules 1 by mouth twice a day Carl Singh M.D., P.C. Cranberry Fruit Concentrate High Potency 45756yf Capsules twice daily Carl Singh M.D., P.C. 0 Co-Enzyme Q10 100mg Capsules 2 tablets by mouth daily Carl Singh M.D., P.C. 000 Chromium Picolinate 500mcg Tablets take one tablet by mouth daily Carl Singh M.D., P. C. Calcium + D3 600-200 Tablets 1 by mouth twice a day 180tabs Carl Singh M.D., P.C. 000 Losartan Potassium 25mg Tablets take one tablet by mouth once daily 90tabs Carl Singh M.D., P .C. Alpha-Lipoic Acid 300mg Capsules bid Carl Singh M.D., P.C. Preservision Areds 2 Areds 2 Capsu les 1 by mouth twice a day 180caps Carl Singh M.D., P.C. Omeprazole 40mg Capsules DR take one capsule by mouth once daily 90caps Carl Singh M.D., P.C. Vitamin D (Ergocalciferol) 1.25mg (40386 Ut) Capsules Take One Capsule By Mouth Once Monthly Un known Simvastatin 40mg Tablets take one tablet by mouth once daily in the evening 90tabs Carl Singh M.D., P.C. Montelukast Sodium 10mg Tablets take one tablet by mouth once daily 90tabs Carl Singh M.D., P .C. Citalopram Hydrobromide 20mg Table ts take one tablet by mouth once daily 90tabs Rufino Duvall, P.C. Atenolol 50mg Tablets take one tablet by mouth once daily 90tabs Carl Singh M.D., P.C. Solifenacin Succinate 10mg Tablets Take One Tablet [...] H/L Range Note Complete Blood Count 11/24/[address] [address] [phone] White Blood Count 5.4 10 Normal 4.0-10.0 [...] % Normal 0-0 Comprehensive Metabolic Profil 11/24/[address] [address]472405 [phone] Glucose, Fasting 83 mg/dL Normal 70-100 Blood [...] Ratio 1.4 Normal 1.2-2.2 Lipid Panel 11/24/[address] [address] [phone] Triglycerides Level 80 mg/dL Normal <150 Cholesterol Level 164 mg/dL Normal <200 HDL Cholesterol 61 mg/dL Normal >40 LDL Cholesterol 87 mg/dL Normal <100 Non-HDL-C 103 mg/dL Normal Cholesterol Risk Ratio 2.688 Normal <5 Laboratory test finding 11/24/[address] [address] [phone] CPK Creatine Phosphokinase 66 U/L Normal 26-19 2 Total 25(Oh) Vitamin D 43.9 NG/ML Normal 30.0-100.0 Complete Blood Count 08/25/[address] [address] [phone] White Blood Count 4.0 10 Normal 4.0-10.0 [...] % Normal 0-0 Comprehensive Metabolic Profil 08/25/[address] [address] [phone] Glucose, Fasting 91 mg/dL Normal 70-100 Blood [...] Ratio 1.5 Normal 1.2-2.2 Lipid Panel 08/25/[address] [address] [phone] Triglycerides Level 71 mg/dL Normal <150 Cholesterol Level 273 mg/dL High <200 HDL Cholesterol 65 mg/dL Normal >40 LDL Cholesterol 194 mg/dL High <100 Non-HDL-C 208 mg/dL Normal Cholesterol Risk Ratio 4.200 Normal <5 Laboratory test finding 08/25/[address] [address] [phone] CPK Creatine Phosphokinase 97 U/L Normal 26-19 [...] Little GFR Left ESRD GFR <15 on TEACHER [employer] IMPAIRED 2 Units are mL/min/1.73 m2 Chronic Kidney Disease Staging per NKF: Stage I & II GFR >=60 Normal to Mildly Decreased Stage III GFR 30-59 Moderately Decreased Stage IV GFR 15-29 Severely Decreased Stage V GFR <15 Very Little GFR Left ESRD GFR <15 on TEACHER [employer] IMPAIRED Procedures Date Code Description Status 09/01/2020 00615 Office/Outpatient Established Lo w MDM 20-29 Min Completed Encounters Type Date Location Provider Dx Diagnosis Office Visit 09/01/2020 11:00a [facility] Fernanda Warren NP I 10 Essential (primary) hypertension E78.5 Hyperlipidemia, unspecified K21.9 Gastro-esophageal reflux dis ease without esophagitis Assessments Date Code Description Provider 09/01/2020 I10 Essential (primary) hypertension Fernanda Warren NP 09/01/2020 E78.5 Hyperlipidemia, unspecified Jonathan Warren NP 09/01/2020 K21.9 Gastro-esophageal reflux disease without esophagitis Fernanda Warren NP Plan of Treatment Future Appointment(s):* 03/04/2021 10:30 am - Fernanda Warren NP at [facility] * 12/08/2020 3:00 pm - Carl Singh M.D., P.C. at [facility] Referrals Refer to Reason for Referral Status Appt Date Carlos Dubon MD Please eval and treat patien t with history GERD and is due for upper and lower scopes Created [address] [place] [address] [phone]
--- OUTSIDE RECORDS SUMMARY | 2021-01-26 09:08 | CCD | Continuity of Care Document ---
Author Author Marissa ANDREWS M.D. Organization Unknown Address [address] [place] [address] Phone [phone] Care Team Providers Care Dairy Clerk Name Role Phone Fernanda Warren AUTM [phone] Problems Description No Information Available Social History Type Date Description Comments Sex Unknown Allergies, Adverse Reactions, Alerts Description No Information Available Medications Active Medications SIG Qnty Indications Ordering Provide r Date Tylenol 8 Hour 650mg Tablets ER Hallie Andrews M.D. 07/13/2018 Immunizations Description No Information Available Vital Signs Description No Information Available Results Description No Information Available Procedures Date Code Description Status 07/26/2020 33861 MRI Brain W/O Contrast Completed 07/26/2020 68028 MRI Brain W/O Contrast Completed 07/21/2020 14969 Office/Outpatient Established Mo d MDM 30-39 Min Completed Medical Devices Description No Information Available Encounters Type Date Location Provider Dx Diagnosis Office Visit 07/21/2020 8:45a Main office - [place] Justina Andrews M.D. G47.00 Insomnia, unspecified R25.8 Other abnormal involuntary m ovements M47.897 Other spondylosis, lumbosacr al region M62.838 Other muscle spasm R20.2 Paresthesia of skin G62.89 Other specified polyneuropat hies Assessments Date Code Description Provider 07/26/2020 G60.9 Hereditary and idiopathic neurop athy, unspecified Hallie Andrews M.D. 07/26/2020 G60.9 Hereditary and idiopathic neurop athy, unspecified MRI 07/26/2020 R26.2 Difficulty in walking, not elsew here classified Hallie Andrews M.D. 07/26/2020 R26.2 Difficulty in walking, not [...] polyneuropathies Justina Andrews M.D. Plan of Treatment No Information Available Functional Status Description No Information Available Mental Status Description No Information Available Referrals Description No Information Available
--- OUTSIDE RECORDS SUMMARY | 2021-01-26 09:09 | CCD ---
Author Author [facility] Organization [facility] Address Unknown Phone Unavailable Care Team Providers Care [place] Instructor Name Role Phone Veto ZHANG MD Unavailable Unavailable Veto ZHANG MD Unavailable Unavailable Veto ZHANG MD Unavailable Unavailable Veto ZHANG MD Unavailable Unavailable ZHANGVeto MD Unavailable Unavailable ZHANGVeto MD Unavailable Unavailable ZHANGVeto MD Unavailable Unavailable ZHANGVeto MD Unavailable Unavailable ZHANGVeto MD Unavailable Unavailable ZHANG, L ELIZABETH OLSON Unavailable Unavailable ZHANG, L ELIZABETH OLSON Unavailable Unavailable ZHANG, L ELIZABETH OLSON Unavailable Unavailable ZHANG, L ELIZABETH OLSON Unavailable Unavailable ZHANG, L ELIZABETH OLSON Unavailable Unavailable ZHANG L ELIZABETH OLSON Unavailable Unavailable ZHANG, L ELIZABETH OLSON Unavailable Unavailable ZHANG, L ELIZABETH OLSON Unavailable Unavailable ZHANG, L ELIZABETH OLSON Unavailable Unavailable ZHANG L ELIZABETH OLSON Unavailable Unavailable ZHANG, L ELIZABETH OLSON Unavailable Unavailable ZHANG, L ELIZABETH OLSON Unavailable Unavailable ZHANG, L ELIZABETH OLSON Unavailable Unavailable ZHANG, L ELIZABETH OLSON Unavailable Unavailable ZHANG, L ELIZABETH OLSON Unavailable Unavailable ZHANG, L ELIZABETH OLSON Unavailable Unavailable ZHANG, L ELIZABETH OLSON Unavailable Unavailable ZHANG, L ELIZABETH OLSON Unavailable Unavailable ZHANG, L ELIZABETH OLSON Unavailable Unavailable ZHANG, L ELIZABETH OLSON Unavailable Unavailable ZHANG, L ELIZABETH OLSON Unavailable Unavailable ZHANG, L ELIZABETH OLSON Unavailable Unavailable ZHANG, L ELIZABETH OLSON Unavailable Unavailable ZHANG, L ELIZABETH OLSON Unavailable Unavailable ZHANG, L ELIZABETH OLSON Unavailable Unavailable ZHANG, L ELIZABETH OLSON Unavailable Unavailable ZHANG, L ELIZABETH OLSON Unavailable Unavailable ZHANG, L ELIZABETH OLSON Unavailable Unavailable ZHANG, L ELIZABETH OLSON Unavailable Unavailable ZHANG, L ELIZABETH OLSON Unavailable Unavailable ZHANG, L ELIZABETH OLSON Unavailable Unavailable ZHANG, L ELIZABETH OLSON Unavailable Unavailable ZHANG, L ELIZABETH OLSON Unavailable Unavailable ZHANG, L ELIZABETH OLSON Unavailable Unavailable ZHANG, L ELIZABETH OLSON Unavailable Unavailable ZHANG, L ELIZABETH OLSON Unavailable Unavailable KIRSCHMAN, L ELIESER [facility] Unavailable Unavailable KIRSCHMAN, L ELIESER [facility] Unavailable Unavailable KIRSCHMAN, L ELIESER [facility] Unavailable Unavailable KIRSCHMAN, L ELIESER [facility] Unavailable Unavailable KIRSCHMAN, L ELIESER [facility] Unavailable Unavailable KIRSCHMAN, L ELIESER [facility] Unavailable Unavailable KIRSCHMAN, L ELIESER [facility] Unavailable Unavailable KIRSCHMAN, L ELIESER [facility] Unavailable Unavailable KIRSCHMAN, L ELIESER [facility] Unavailable Unavailable KIRSCHMAN, L ELIEESR [facility] Unavailable Unavailable KIRSCHMAN, L ELIESER [facility] Unavailable Unavailable KIRSCHMAN, L ELIESER [facility] Unavailable Unavailable KIRSCHMAN, L ELIESER [facility] Unavailable Unavailable KIRSCHMAN, L ELIESER [facility] Unavailable Unavailable KIRSCHMAN, L ELIESER [facility] Unavailable Unavailable KIRSCHMAN, L ELIESER [facility] Unavailable Unavailable KIRSCHMAN, L ELIESER [facility] Unavailable Unavailable KIRSCHMAN, L ELIESER [facility] Unavailable Unavailable KIRSCHMAN, L ELIESER [facility] Unavailable Unavailable KIRSCHMAN, L ELIESER [facility] Unavailable Unavailable KIRSCHMAN, L ELIESER [facility] Unavailable Unavailable KIRSCHMAN, L ELIESER [facility] Unavailable Unavailable KIRSCHMAN, L ELIESER [facility] Unavailable Unavailable KIRSCHMAN, L ELIESER [facility] Unavailable Unavailable KIRSCHMAN, L ELIESER [facility] Unavailable Unavailable KIRSCHMAN, L ELIESER [facility] Unavailable Unavailable KIRSCHMAN, L ELIESER [facility] Unavailable Unavailable KIRSCHMAN, L ELIESER [facility] Unavailable Unavailable KIRSCHMAN, L ELIESER [facility] Unavailable Unavailable KIRSCHMAN, L ELIESER [facility] Unavailable Unavailable KIRSCHMAN, L ELIESER [facility] Unavailable Unavailable KIRSCHMAN, L ELIESER [facility] Unavailable Unavailable KIRSCHMAN, L ELIESER [facility] Unavailable Unavailable KIRSCHMAN, L ELIESER [facility] Unavailable Unavailable KIRSCHMAN, L ELIESER [facility] Unavailable Unavailable KIRSCHMAN, L ELIESER [facility] Unavailable Unavailable KIRSCHMAN, L ELIESER [facility] Unavailable Unavailable KIRSCHMAN, L ELIESER [facility] Unavailable Unavailable KIRSCHMAN, L ELIESER [facility] Unavailable Unavailable KIRSCHMAN, L ELIESER [facility] Unavailable Unavailable KIRSCHMAN, L ELIESER [facility] Unavailable Unavailable KIRSCHMAN, L ELIESER [facility] Unavailable Unavailable KIRSCHMAN, L ELIESER [facility] Unavailable Unavailable KIRSCHMAN, L ELIESER [facility] Unavailable Unavailable KIRSCHMAN, L ELIESER [facility] Unavailable Unavailable KIRSCHMAN, L ELIESER [facility] Unavailable Unavailable KIRSCHMAN, L ELIESER [facility] Unavailable Unavailable DIANE, CAROL OLSON Unavailable Unavailable DIANE, CAROL OLSON Unavailable Unavailable DIANE, CAROL OLSON Unavailable Unavailable DIANE, CAROL OLSON Unavailable Unavailable DIANE, CAROL OLSON Unavailable Unavailable DIANE, CAROL OLSON Unavailable Unavailable DIANE, CAROL OLSON Unavailable Unavailable DIANE, CAROL MD Unavailable Unavailable DIANE, CAROL OLSON Unavailable Unavailable DIANE, CAROL OLSON Unavailable Unavailable DIANE, CAROL OLSON Unavailable Unavailable DIANE, CAROL OLSON Unavailable Unavailable DIANE, CAROL MD Unavailable Unavailable DIANE, CAROL MD Unavailable Unavailable DIANE, CAROL MD Unavailable Unavailable DIANE, CAROL MD Unavailable Unavailable DIANE, CAROL OLSON Unavailable Unavailable DIANE, CAROL OLSON Unavailable Unavailable DIANE, CAROL OLSON Unavailable Unavailable DIANE, CAROL OLSON Unavailable Unavailable DIANE, CAROL OLSON Unavailable Unavailable DIANE, CAROL OLSON Unavailable Unavailable DIANE, CAROL OLSON Unavailable Unavailable DIANE, CAROL OLSON Unavailable Unavailable DIANE, CAROL OLSON Unavailable Unavailable DIANE, CAROL OLSON Unavailable Unavailable DIANE, CAROL OLSON Unavailable Unavailable DIANE, CAROL OLSON Unavailable Unavailable DIANE, CAROL OLSON Unavailable Unavailable DIANE, CAROL OLSON Unavailable Unavailable DIANE, CAROL OLSON Unavailable Unavailable DIANE, CAROL OLSON Unavailable Unavailable DIANE, CAROL OLSON Unavailable Unavailable DIANE, CAROL OLSON Unavailable Unavailable DIANE, CAROL OLSON Unavailable Unavailable DIANE, CAROL OLSON Unavailable Unavailable DIANE, CAROL OLSON Unavailable Unavailable DIANE, CAROL OLSON Unavailable Unavailable DIANE, CAROL OLSON Unavailable Unavailable DIANE, CAROL OLSON Unavailable Unavailable DIANE, CAROL OLSON Unavailable Unavailable DIANE, CAROL MD Unavailable Unavailable CAROL CONTRERAS MD Unavailable Unavailable Re-disclosure Warning The records that you are about to access may contain information from federally-assisted alcohol or drug abuse programs. If such information is present, then the following federally mandated warning applies: This information has been disclosed to you from records protected by federal confidentiality rules (42 CFR part 2). The federal rules prohibit you from making any further disclosure of this information unless further disclosure is expressly permitted by the written consent of the person to whom it pertains or as otherwise permitted by 42 CFR part 2. A general authorization for the release of medical or other information is NOT sufficient for this purpose. The Federal rules restrict any use of the information to criminally investigate or prosecute any alcohol or drug abuse patient.The records that you are about to access may contain highly sensitive health information, the redisclosure of which is protected by Article 27-F of the [facility] Public Health law. If you continue you may have access to information: Regarding HIV / AIDS; Provided by facilities licensed or operated by the [facility] Office of Mental Health; or Provided by the [facility] Office for People With Developmental Disabilities. If such information is present, then the following [facility] mandated warning applies: This information has been disclosed to you from confidential records which are protected by state law. State law prohibits you from making any further disclosure of this information without the specific written consent of the person to whom it pertains, or as otherwise permitted by law. Any unauthorized further disclosure in violation of state law may result in a fine or care home sentence or both. A general authorization for the release of medical or other information is NOT sufficient authorization for further disc losure. Family History Family Member Name Family Member Gender Family Member Status Date o f Status Description Data Source(s) Unknown Unknown Problem [facility] ([facility] k[facility]) Unknown Female Problem [facility] ([facility]) Unknown Female Problem [facility] ([facility] Unknown Female Problem [facility] ([facility]) Unknown Female Problem [facility] ([facility]) Unknown Female Problem [facility] ([facility]) Unknown Unknown Problem [facility] ([facility] Encounters Encounter Providers Location Date Indications Data Source(s ) Outpatient Attender: ELIESER TAPIA [facility] 11:00:00 AM EDT [facility] (Carl Singh MD) Outpatient Attender: ELIZABETH [facility] 11:30:00 AM EDT [facility] ([facility]) Outpatient Attender: CAROL CONTRERAS MD Main office - [facility] 11/04/2020 10:15:00 AM EDT [facility] ([facility]) Outpatient Attender: ELIESER TAPIA [facility] 11:00:00 AM EDT [facility] (Carl Singh MD) Outpatient Attender: CAROL CONTRERAS MD Main office - [facility] 07/21/2020 08:45:00 AM EDT [facility] ([facility]) Outpatient Attender: ELIESER TAPIA [facility] 11:00:00 AM EDT [facility] (Carl Singh MD) Outpatient Attender: CAROL CONTRERAS MD Main office - [facility] 04/21/2020 08:00:00 AM EST [facility] ([facility]) Outpatient Attender: ELIESER TAPIA [facility] 10:00:00 AM EST [facility] (Carl Singh MD) Immunizations Vaccine Date Status Description Data Source(s) COVID-19 VACCINE Moderna 06/11/2020 12:00:00 AM EDT completed [facility] Vaccine Series Complete: YESThis Data wa s Submitted to [facility] Via [email or web address]. COVID-19 VACCINE, MRNA-1273, LNP-S (MODERNA)/PF 06/11/2020 1 2:00:00 AM EDT completed [facility] COVID-19 VACCINE Moderna 05/09/2020 12:00:00 AM EST completed [facility] Vaccine Series Complete: NOThis Data was Submitted to [facility] Via [employer]. COVID-19 VACCINE, MRNA-1273, LNP-S (MODERNA)/PF 05/09/2020 1 2:00:00 AM EST completed [facility] Medications Medication Brand Name Start Date Product Form Dose Route Admi nistrative Instructions Pharmacy Instructions Status Indications Reaction Description Data Source(s) SUPREP BOWEL PREP KIT 17.5-3.13-1.6 gram SODIUM, POTASSIUM,M AG SULFATES 12/26/2020 12:00:00 AM EDT recon soln 354 TAKE PER 'S BOWEL PREP INSTRUCTIONS TAKE PER 'S BOWEL PREP INSTRUCTIONS SOLD: 12/29/2020 [facility] Resume Bisacodyl 5 MG Delayed Release Oral Tablet [Dulcolax] Dulcol ax 12/26/2020 12:00:00 AM EDT ORAL active M EDENT ([facility], ) Suprep Bowel Prep Kit Suprep Bowel Prep Kit 12/26/2020 12:00:00 AM EDT active MED[facility] ([facility], ) 500 mg 12/22/2020 12:00:00 AM EDT tablet 14 TAKE ONE TABLET BY MOUTH TWICE A DAY TAKE ONE TABLET BY MOUTH TWICE A DAY SOLD: 12/22/2020 [facility] Ciprofloxacin 500 MG Oral Tablet [Cipro] Cipro 12/22/2020 12:00: 00 AM EDT ORAL active MED[facility] (Sherron Singh MD) solifenacin succinate 10 MG Oral Tablet Solifenacin Succinat e 11/14/2020 12:00:00 AM EDT active M [facility]ENT ([facility]) 40 mg 03/04/2020 12:00:00 AM EST tablet 14 TAKE ONE TABLET BY MOUTH EVERY EVENING TAKE ONE TABLET BY MOUTH EVERY EVENING SOLD: 03/04/2020 [facility] Atenolol 50 MG Oral Tablet ATENOLOL 03/04/2020 12:00:00 AM EST tablet 14 TAKE ONE TABLET BY MOUTH EVERY DAY TAKE ONE TABLET BY MOUTH EVERY DAY SOLD: 03/04/2020 [facility] Insurance Providers Payer name Policy type / Coverage type Policy ID Covered libertarian ID Covered libertarian's relationship to hagen Policy Hagen Plan Information POMCO [id number] SP [id number] MEDICARE [id number] SP [id number] A [id number] [employer]OM[employer] [id number] SP [id number] MEDICARE [id number] SP [id number] Ghi/Emblem HLTH (pr) Medigap Part B [id number] Self MEDICARE [id number] SP [id number] Medicare [place] Primary [id number] Self Medicare [place] Primary [id number] Self [place] (pr) Medigap Part B [id number] Self UMR [facility] [id number] SP [id number] UMR [facility] [id number] SP [id number] Ghi / Emblem Medigap Part B [id number] Self [id number] Pomco Medigap Part B [id number] Self [id number] Umr Commercial [id number] S elf [id number] Medicare [place] Primary [id number] Self [id number] POMCO-O/P [id number] 18 [id number] Medicare Dme Supplies Medigap Part B [id number] Self UMR [facility] [id number] SP [id number] MEDICARE PART A-O/P [id number] 18 [id number] MEDICARE C [id number] S [id number] MEDICARE -RECURRING [id number] 18 [id number] POMCO PPO O [id number] S [id number] MEDICARE C [id number] S [id number] A [place] Medigap Part B [id number] Self UMR O [id number] S [id number] Ghi/[employer] Commercial [id number] Self UMR -O/P [id number] 18 [id number] SP [id number] MEDICARE PART A-O/P [id number] 18 [id number] Problems, Conditions, and Diagnoses Code Display Name Description Problem Type Effective Dates Data Source(s) I10 Essential hypertension Essential hypertension Problem 02/27/2020 12:00:00 AM EST [facility] (Carl Singh MD) E78.00 Pure hypercholesterolemia Pure hypercholesterolemia Pr oblem 02/27/2020 12:00:00 AM EST [facility] (Carl Singh MD) K21.9 Gastroesophageal reflux disease Gastroesophageal reflu x disease Problem 02/27/2020 12:00:00 AM EST [facility] (Carl Singh MD) Z86.59 H/O: depression H/O: depression Problem 02/27/2020 12:0 0:00 AM EST [facility] (Carl Singh MD) Surgeries/Procedures Procedure Description Date Indications Data Source(s) NON-INVAS PHYSIOLOGIC STD EXTREMITY ART 2 LEVEL 2020 12:00:00 AM EDT [facility] (Carl Singh MD) ELECTROENCEPHALOGRAM W/REC AWAKE&ASLEEP 12/16/2020 12: 00:00 AM EDT [facility] ([facility] ) ELECTROENCEPHALOGRAM W/REC AWAKE&ASLEEP 12/16/2020 12: 00:00 AM EDT MED[facility] ([facility] ) Polysomnography Sleep Staging 4+ Parameters 12/07/2020 12:00:00 AM EDT [facility] ([facility], ) OFFICE OUTPATIENT VISIT 25 MINUTES 12/03/2020 12:00:00 AM EDT MED[facility] (Carl Singh MD) PERIODIC PREVENTIVE MED EST PATIENT 65YRS&> 11/24/2020 12:00:00 AM EDT [facility] ([facility] Reed [facility]) FALLS RISK ASSESSMENT DOCUMENTED 11/04/2020 12:00:00 A M EDT MED[facility] ([facility] ) OFFICE OUTPATIENT VISIT 25 MINUTES 11/04/2020 12:00:00 AM EDT [facility] ([facility], ) OFFICE OUTPATIENT VISIT 15 MINUTES 09/01/2020 12:00:00 AM EDT MED[facility] (Carl Singh MD) MRI BRAIN BRAIN STEM W/O CONTRAST MATERIAL 07/26/2020 12:00:00 AM EDT MED[facility] ([facility] ) MRI BRAIN BRAIN STEM W/O CONTRAST MATERIAL 07/26/2020 12:00:00 AM EDT [facility] ([facility] ) OFFICE OUTPATIENT VISIT 25 MINUTES 07/21/2020 12:00:00 AM EDT [facility] ([facility], ) OFFICE OUTPATIENT VISIT 15 MINUTES 05/28/2020 12:00:00 AM EDT [facility] (Carl Singh MD) Results ID Date Data Source [id number] 11/24/2020 01:47:00 PM EDT [facility] (Carl Singh MD) Name Value Range Interpretation Code Description Data Jenniffer rce(s) Supporting Document(s) Creatine kinase [Enzymatic activity/volume] in Serum or Plasma 6 6 U/L 26-192 Normal (applies to non-numeric results) [facility] (Carl wang MD) Calcidiol [Mass/volume] in Serum or Plasma 43.9 ng/mL 30.0- 100.0 Normal (applies to non-numeric results) [facility] (Carl Singh MD) ID Date Data Source [id number] 11/24/2020 01:47:00 PM EDT [facility] (Carl Singh MD) Name Value Range Interpretation Code Description Data Jenniffer rce(s) Supporting Document(s) Laboratory test finding (navigational concept) 87 mg/dL Normal (applies to non-numeric results) [facility] (Carl Singh MD) Laboratory test finding (navigational concept) 164 mg/dL Normal (applies to non-numeric results) [facility] (Carl Singh MD) Laboratory test finding (navigational concept) 61 mg/dL Normal (applies to non-numeric results) [facility] (Carl Singh MD) Laboratory test finding (navigational concept) 80 mg/dL Normal (applies to non-numeric results) [facility] (Carl Singh MD) Laboratory test finding (navigational concept) 103 mg/dL Normal (applies to non-numeric results) [facility] (Carl Singh MD) Laboratory test finding (navigational concept) 2.688 Normal (applies to non- numeric results) CHRIS (Carl Singh MD) ID Date Data Source [id number] 11/24/2020 01:47:00 PM EDT [facility] (Carl Singh MD) Name Value Range Interpretation Code Description Data Jenniffer rce(s) Supporting Document(s) Laboratory test finding (navigational concept) 83 mg/dL 7 0-100 Normal (applies to non-numeric results) [facility] (Carl Singh MD) Laboratory test finding (navigational concept) 22 mg/dL 7-18 Above high normal MED[facility] (Carl Singh MD) Laboratory test finding (navigational concept) 0.68 mg/dL 0 .55-1.30 Normal (applies to non-numeric results) [facility] (Carl Singh MD) Laboratory test finding (navigational concept) 141 meq/L 1 36-145 Normal (applies to non-numeric results) [facility] (Carl Singh MD) Laboratory test finding (navigational concept) 4.3 meq/L 3 .5-5.1 Normal (applies to non-numeric results) [facility] (Carl Singh MD) Laboratory test finding (navigational concept) Laboratory test r esult Normal (applies to non-numeric results) [facility] (Carl Singh MD) <content>Units are mL/min/1.73 m2</content>
<content></content>
<content>Chronic Kidney Disease Staging per NKF:</content>
<content></content>
<content>Stage I & II GFR >=60 Normal to Mildly Decreased</content>
<content>Stage III GFR 30- 59 Moderately Decreased</content>
<content>Stage IV GFR 15-29 Severely Decreased</content>
<content>Stage V GFR <15 Very Little GFR Left</content>
<content>ESRD GFR <15 on [facility] REDEVELOPMENT SITE MANAGER</content>
<content></content> Laboratory test finding (navigational concept) 8 meq/L 8 -16 Normal (applies to non-numeric results) [facility] (Carl Singh MD) Laboratory test finding (navigational concept) 29 meq/L 2 1-32 Normal (applies to non-numeric results) [facility] (Carl Singh MD) Laboratory test finding (navigational concept) 104 meq/L 9 8-107 Normal (applies to non-numeric results) ENRIQUEENT (Carl Singh MD) Laboratory test finding (navigational concept) 9.2 mg/dL 8 .8-10.2 Normal (applies to non-numeric results) ENRIQUEENT (Carl Singh MD) Laboratory test finding (navigational concept) 30 U/L 1 2-78 Normal (applies to non-numeric results) [facility] (Carl Singh MD) Laboratory test finding (navigational concept) 20 U/L 7 -37 Normal (applies to non-numeric results) [facility] (Carl Singh MD) Laboratory test finding (navigational concept) 63 U/L 4 5-117 Normal (applies to non-numeric results) [facility] (Carl Singh MD) Laboratory test finding (navigational concept) 6.5 GM/DL 6 .4-8.2 Normal (applies to non-numeric results) [facility] (Carl Singh MD) Laboratory test finding (navigational concept) 0.8 mg/dL 0 .2-1.0 Normal (applies to non-numeric results) [facility] (Carl Singh MD) Laboratory test finding (navigational concept) 1.4 1 .2-2.2 Normal (applies to non-numeric results) [facility] (Carl Singh MD) Laboratory test finding (navigational concept) 3.8 GM/DL 3 .2-5.2 Normal (applies to non-numeric results) [facility] (Carl Singh MD) ID Date Data Source [id number] 11/24/2020 01:47:00 PM EDT [facility] (Carl Singh MD) Name Value Range Interpretation Code Description Data Jenniffer rce(s) Supporting Document(s) Laboratory test finding (navigational concept) 5.4 10 4 .0-10.0 Normal (applies to non-numeric results) [facility] (Carl Singh MD) Laboratory test finding (navigational concept) 39.5 % 3 6.0-47.0 Normal (applies to non-numeric results) [facility] (Carl Singh MD) Laboratory test finding (navigational concept) 4.47 10 4 .00-5.40 Normal (applies to non-numeric results) CHRIS (Carl Singh MD) Laboratory test finding (navigational concept) 13.1 g/dL 1 2.0-15.5 Normal (applies to non-numeric results) [facility]TOY[facility] (Carl Singh MD) Laboratory test finding (navigational concept) 13.4 % 1 1.5-14.5 Normal (applies to non-numeric results) [facility] (Carl Singh MD) Laboratory test finding (navigational concept) 88.4 fl 8 0.0-96.0 Normal (applies to non-numeric results) [facility] (Carl Singh MD) Laboratory test finding (navigational concept) 33.2 g/dL 3 2.0-36.5 Normal (applies to non-numeric results) [facility] (Carl Singh MD) Laboratory test finding (navigational concept) 29.3 pg 2 7.0-33.0 Normal (applies to non-numeric results) [facility] (Carl Singh MD) Laboratory test finding (navigational concept) 0.0 % 0 -0 Normal (applies to non- numeric results) [facility] (Carl Singh MD) Laboratory test finding (navigational concept) 190 10 1 50-450 Normal (applies to non-numeric results) [facility] (Carl Singh MD) ID Date Data Source [id number] 11/24/2020 12:00:00 PM EDT [facility] (Hasmukh Reed [facility]) Name Value Range Interpretation Code Description Data Jenniffer rce(s) Supporting Document(s) TP Reflex HPV ASCUS Laboratory test result [facility] (Hasmukh Reed [facility]) TP Reflex HPV ASCUS Laboratory test result [facility] (Hasmukh Reed [facility]) SPECIMEN PART------ A. Cervical, Endocervical, ThinPrep Pap (Cleaning Technician) CYTOLOGY HX-------- Other Information: Post-menopausal Previous Normal Pap: 10/24/18 FINAL DIAGNOSIS---- INTERPRETATION: Negative for Intraepithelial Lesion or Malignancy. SPECIMEN ADEQUACY:Satisfactory for evaluation. Endocervical/transformation zone component present. ADDITIONAL FINDINGS:Atrophic pattern. ID Date Data Source [id number] 08/25/2020 02:53:00 PM EDT [facility] (Carl Singh MD) Name Value Range Interpretation Code Description Data Jenniffer rce(s) Supporting Document(s) Creatine kinase [Enzymatic activity/volume] in Serum or Plasma 9 7 U/L 26-192 Normal (applies to non-numeric results) [facility] (Carl wang MD) Calcidiol [Mass/volume] in Serum or Plasma 45.6 ng/mL 30.0- 100.0 Normal (applies to non-numeric results) [facility] (Carl Singh MD) Magnesium [Mass/volume] in Serum or Plasma 2.3 mg/dL 1.8-2 .4 Normal (applies to non-numeric results) [facility] (Carl Singh MD) ID Date Data Source [id number] 08/25/2020 02:53:00 PM EDT [facility] (Carl Singh MD) Name Value Range Interpretation Code Description Data Jenniffer rce(s) Supporting Document(s) Laboratory test finding (navigational concept) 71 mg/dL Normal (applies to non-numeric results) [facility] (Carl Singh MD) Laboratory test finding (navigational concept) 65 mg/dL Normal (applies to non-numeric results) [facility] (Carl Singh MD) Laboratory test finding (navigational concept) 273 mg/dL Above high normal [facility] (Carl Singh MD) Laboratory test finding (navigational concept) 194 mg/dL Above high normal [facility] (Carl Singh MD) Laboratory test finding (navigational concept) 208 mg/dL Normal (applies to non-numeric results) [facility] (Carl Singh MD) Laboratory test finding (navigational concept) 4.200 Normal (applies to non- numeric results) [facility] (Carl Singh MD) ID Date Data Source [id number] 08/25/2020 02:53:00 PM EDT [facility] (Carl Singh MD) Name Value Range Interpretation Code Description Data Jenniffer rce(s) Supporting Document(s) Laboratory test finding (navigational concept) 91 mg/dL 7 0-100 Normal (applies to non-numeric results) [facility] (Carl Singh MD) Laboratory test finding (navigational concept) Laboratory test r esult Normal (applies to non-numeric results) [facility] (Carl Singh MD) <content>Units are mL/min/1.73 m2</content>
<content></content>
<content>Chronic Kidney Disease Staging per NKF:</content>
<content></content>
<content>Stage I & II GFR >=60 Normal to Mildly Decreased</content>
<content>Stage III GFR 30- 59 Moderately Decreased</content>
<content>Stage IV GFR 15-29 Severely Decreased</content>
<content>Stage V GFR <15 Very Little GFR Left</content>
<content>ESRD GFR <15 on [employer]</content>
<content></content> Laboratory test finding (navigational concept) 14 mg/dL 7 -18 Normal (applies to non-numeric results) [facility] (Carl Singh MD) Laboratory test finding (navigational concept) 0.82 mg/dL 0 .55-1.30 Normal (applies to non-numeric results) [facility] (Carl Singh MD) Laboratory test finding (navigational concept) 4.3 meq/L 3 .5-5.1 Normal (applies to non-numeric results) [facility] (Carl Singh MD) Laboratory test finding (navigational concept) 142 meq/L 1 36-145 Normal (applies to non-numeric results) [facility] (Carl Singh MD) Laboratory test finding (navigational concept) 107 meq/L 9 8-107 Normal (applies to non-numeric results) [facility] (Carl Singh MD) Laboratory test finding (navigational concept) 30 meq/L 2 1-32 Normal (applies to non-numeric results) [facility] (Carl Singh MD) Laboratory test finding (navigational concept) 9.4 mg/dL 8 .8-10.2 Normal (applies to non-numeric results) [facility] (Carl Singh MD) Laboratory test finding (navigational concept) 17 U/L 7 -37 Normal (applies to non-numeric results) [facility] (Carl Singh MD) Laboratory test finding (navigational concept) 5 meq/L 8-16 Below low normal [facility] (Carl Singh MD) Laboratory test finding (navigational concept) 26 U/L 1 2-78 Normal (applies to non-numeric results) [facility] (Carl Singh MD) Laboratory test finding (navigational concept) 65 U/L 4 5-117 Normal (applies to non-numeric results) [facility] (Carl Singh MD) Laboratory test finding (navigational concept) 0.7 mg/dL 0 .2-1.0 Normal (applies to non-numeric results) [facility] (Carl Singh MD) Laboratory test finding (navigational concept) 1.5 1 .2-2.2 Normal (applies to non-numeric results) [facility] (Carl Singh MD) Laboratory test finding (navigational concept) 6.7 GM/DL 6 .4-8.2 Normal (applies to non-numeric results) [facility] (Carl Singh MD) Laboratory test finding (navigational concept) 4.0 GM/DL 3 .2-5.2 Normal (applies to non-numeric results) [facility] (Carl Singh MD) ID Date Data Source [id number] 08/25/2020 02:53:00 PM EDT [facility] (Carl Singh MD) Name Value Range Interpretation Code Description Data Jenniffer rce(s) Supporting Document(s) Laboratory test finding (navigational concept) 4.0 10 4 .0-10.0 Normal (applies to non-numeric results) [facility] (Carl Singh MD) Laboratory test finding (navigational concept) 4.66 10 4 .00-5.40 Normal (applies to non-numeric results) [facility] (Carl Singh MD) Laboratory test finding (navigational concept) 13.5 g/dL 1 2.0-15.5 Normal (applies to non-numeric results) [facility] (Carl Singh MD) Laboratory test finding (navigational concept) 41.1 % 3 6.0-47.0 Normal (applies to non-numeric results) [facility] (Carl Singh MD) Laboratory test finding (navigational concept) 88.2 fl 8 0.0-96.0 Normal (applies to non-numeric results) [facility] (Carl Singh MD) Laboratory test finding (navigational concept) 29.0 pg 2 7.0-33.0 Normal (applies to non-numeric results) [facility] (Carl Singh MD) Laboratory test finding (navigational concept) 32.8 g/dL 3 2.0-36.5 Normal (applies to non-numeric results) [facility] (Carl Singh MD) Laboratory test finding (navigational concept) 221 10 1 50-450 Normal (applies to non-numeric results) [facility] (Carl Singh MD) Laboratory test finding (navigational concept) 0.0 % 0 -0 Normal (applies to non- numeric results) [facility] (Carl Singh MD) Laboratory test finding (navigational concept) 12.8 % 1 1.5-14.5 Normal (applies to non-numeric results) [facility] (Carl Singh MD) ID Date Data Source [id number] 05/23/2020 03:04:00 PM EST [facility] (Carl Singh MD) Name Value Range Interpretation Code Description Data Jenniffer rce(s) Supporting Document(s) Creatine kinase [Enzymatic activity/volume] in Serum or Plasma 7 2 U/L 26-192 Normal (applies to non-numeric results) [facility] (Carl wang MD) Calcidiol [Mass/volume] in Serum or Plasma 52.3 ng/mL 30.0- 100.0 Normal (applies to non-numeric results) [facility] (Carl Singh MD) ID Date Data Source [id number] 05/23/2020 03:04:00 PM EST [facility] (Carl Singh MD) Name Value Range Interpretation Code Description Data Jenniffer rce(s) Supporting Document(s) Laboratory test finding (navigational concept) 79 mg/dL Normal (applies to non-numeric results) [facility] (Carl Singh MD) Laboratory test finding (navigational concept) 149 mg/dL Normal (applies to non-numeric results) [facility] (Carl Singh MD) Laboratory test finding (navigational concept) 64 mg/dL Normal (applies to non-numeric results) [facility] (Carl Singh MD) Laboratory test finding (navigational concept) 69 mg/dL Normal (applies to non-numeric results) [facility] (Carl Singh MD) Laboratory test finding (navigational concept) 2.328 Normal (applies to non- numeric results) [facility] (Carl Singh MD) Laboratory test finding (navigational concept) 85 mg/dL Normal (applies to non-numeric results) [facility] (Carl Singh MD) ID Date Data Source [id number] 05/23/2020 03:04:00 PM EST [facility] (Carl Singh MD) Name Value Range Interpretation Code Description Data Jenniffer rce(s) Supporting Document(s) Laboratory test finding (navigational concept) 84 mg/dL 7 0-100 Normal (applies to non-numeric results) [facility] (Carl Singh MD) Laboratory test finding (navigational concept) 21 mg/dL 7-18 Above high normal [facility] (Carl Singh MD) Laboratory test finding (navigational concept) 0.80 mg/dL 0 .55-1.30 Normal (applies to non-numeric results) [facility] (Carl Singh MD) Laboratory test finding (navigational concept) Laboratory test r esult Normal (applies to non-numeric results) [facility] (Carl Singh MD) <content>Units are mL/min/1.73 m2</content>
<content></content>
<content>Chronic Kidney Disease Staging per NKF:</content>
<content></content>
<content>Stage I & II GFR >=60 Normal to Mildly Decreased</content>
<content>Stage III GFR 30- 59 Moderately Decreased</content>
<content>Stage IV GFR 15-29 Severely Decreased</content>
<content>Stage V GFR <15 Very Little GFR Left</content>
<content>ESRD GFR <15 on [employer]</content>
<content></content> Laboratory test finding (navigational concept) 142 meq/L 1 36-145 Normal (applies to non-numeric results) [facility] (Carl Singh MD) Laboratory test finding (navigational concept) 107 meq/L 9 8-107 Normal (applies to non-numeric results) [facility] (Carl Singh MD) Laboratory test finding (navigational concept) 4.1 meq/L 3 .5-5.1 Normal (applies to non-numeric results) [facility] (Carl Singh MD) Laboratory test finding (navigational concept) 4 meq/L 8-16 Below low normal [facility] (Carl Singh MD) Laboratory test finding (navigational concept) 31 meq/L 2 1-32 Normal (applies to non-numeric results) [facility] (Carl Singh MD) Laboratory test finding (navigational concept) 9.5 mg/dL 8 .8-10.2 Normal (applies to non-numeric results) [facility] (Carl Singh MD) Laboratory test finding (navigational concept) 31 U/L 1 2-78 Normal (applies to non-numeric results) [facility] (Carl Singh MD) Laboratory test finding (navigational concept) 16 U/L 7 -37 Normal (applies to non-numeric results) [facility] (Carl Singh MD) Laboratory test finding (navigational concept) 0.6 mg/dL 0 .2-1.0 Normal (applies to non-numeric results) [facility] (Carl Singh MD) Laboratory test finding (navigational concept) 6.5 GM/DL 6 .4-8.2 Normal (applies to non-numeric results) [facility] (Carl Singh MD) Laboratory test finding (navigational concept) 73 U/L 4 5-117 Normal (applies to non-numeric results) [facility] (Carl Singh MD) Laboratory test finding (navigational concept) 3.9 GM/DL 3 .2-5.2 Normal (applies to non-numeric results) [facility] (Carl Singh MD) Laboratory test finding (navigational concept) 1.5 1 .2-2.2 Normal (applies to non-numeric results) [facility] (Carl Singh MD) ID Date Data Source [id number] 05/23/2020 03:04:00 PM EST [facility] (Carl Singh MD) Name Value Range Interpretation Code Description Data Jenniffer rce(s) Supporting Document(s) Laboratory test finding (navigational concept) 4.62 10 4 .00-5.40 Normal (applies to non-numeric results) [facility] (Carl Singh MD) Laboratory test finding (navigational concept) 5.9 10 4 .0-10.0 Normal (applies to non-numeric results) [facility] (Carl Singh MD) Laboratory test finding (navigational concept) 13.7 g/dL 1 2.0-15.5 Normal (applies to non-numeric results) [facility] (Carl Singh MD) Laboratory test finding (navigational concept) 41.4 % 3 6.0-47.0 Normal (applies to non-numeric results) [facility] (Carl Singh MD) Laboratory test finding (navigational concept) 89.6 fl 8 0.0-96.0 Normal (applies to non-numeric results) [facility] (Carl Singh MD) Laboratory test finding (navigational concept) 29.7 pg 2 7.0-33.0 Normal (applies to non-numeric results) [facility] (Carl Singh MD) Laboratory test finding (navigational concept) 33.1 g/dL 3 2.0-36.5 Normal (applies to non-numeric results) [facility] (Carl Singh MD) Laboratory test finding (navigational concept) 12.4 % 1 1.5-14.5 Normal (applies to non-numeric results) [facility] (Carl Singh MD) Laboratory test finding (navigational concept) 205 10 1 50-450 Normal (applies to non-numeric results) [facility] (Carl Singh MD) Laboratory test finding (navigational concept) 0.0 % 0 -0 Normal (applies to non- numeric results) [facility] (Carl Singh MD) ID Date Data Source [id number] 02/21/2020 12:43:00 PM EST [facility] (Carl Singh MD) Name Value Range Interpretation Code Description Data Jenniffer rce(s) Supporting Document(s) Magnesium [Mass/volume] in Serum or Plasma 2.6 mg/dL 1.8-2.4 Above high normal [facility] (Carl Singh MD) Iron [Mass/volume] in Serum or Plasma 128 ug/dL 50-170 Normal (applies to non- numeric results) [facility] (Carl Singh MD) Cobalamin (Vitamin B12) [Mass/volume] in Serum or Plasma 965 pg/ mL 247-911 Above high normal [facility] (Carl Singh MD) VITAMIN B12 NORMAL RANGE NORMAL 247 - 911 PG/ML INDETERMINATE 211 - 246 PG/ML DEFICIENT LESS THAN 211 PG/ML ID Date Data Source [id number] 02/21/2020 12:43:00 PM EST [facility] (Carl Singh MD) Name Value Range Interpretation Code Description Data Jenniffer rce(s) Supporting Document(s) Laboratory test finding (navigational concept) 64 mg/dL Normal (applies to non-numeric results) [facility] (Carl Singh MD) Laboratory test finding (navigational concept) 156 mg/dL Normal (applies to non-numeric results) [facility] (Carl Singh MD) Laboratory test finding (navigational concept) 72 mg/dL Normal (applies to non-numeric results) [facility] (Carl Singh MD) Laboratory test finding (navigational concept) 71 mg/dL Normal (applies to non-numeric results) [facility] (Carl Singh MD) Laboratory test finding (navigational concept) 85 mg/dL Normal (applies to non-numeric results) [facility] (Carl Singh MD) Laboratory test finding (navigational concept) 2.197 Normal (applies to non- numeric results) [facility] (Carl Singh MD) ID Date Data Source [id number] 02/21/2020 12:43:00 PM EST [facility] (Calr Singh MD) Name Value Range Interpretation Code Description Data Jenniffer rce(s) Supporting Document(s) Laboratory test finding (navigational concept) 87 mg/dL 7 0-100 Normal (applies to non-numeric results) [facility] (Carl Singh MD) Laboratory test finding (navigational concept) 0.82 mg/dL 0 .55-1.30 Normal (applies to non-numeric results) [facility] (Carl Singh MD) Laboratory test finding (navigational concept) 16 mg/dL 7 -18 Normal (applies to non-numeric results) [facility] (Carl Singh MD) Laboratory test finding (navigational concept) 141 meq/L 1 36-145 Normal (applies to non-numeric results) [facility] (Carl Singh MD) Laboratory test finding (navigational concept) Laboratory test r esult Normal (applies to non-numeric results) [facility] (Carl Singh MD) <content>Units are mL/min/1.73 m2</content>
<content></content>
<content>Chronic Kidney Disease Staging per NKF:</content>
<content></content>
<content>Stage I & II GFR >=60 Normal to Mildly Decreased</content>
<content>Stage III GFR 30- 59 Moderately Decreased</content>
<content>Stage IV GFR 15-29 Severely Decreased</content>
<content>Stage V GFR <15 Very Little GFR Left</content>
<content>ESRD GFR <15 on [employer]</content>
<content></content> Laboratory test finding (navigational concept) 3.9 meq/L 3 .5-5.1 Normal (applies to non-numeric results) [facility] (Carl Singh MD) Laboratory test finding (navigational concept) 107 meq/L 9 8-107 Normal (applies to non-numeric results) [facility] (Carl Singh MD) Laboratory test finding (navigational concept) 33 meq/L 21-32 Above high normal [facility] (Carl Singh MD) Laboratory test finding (navigational concept) 1 meq/L 8-16 Below low normal [facility] (Carl Singh MD) Laboratory test finding (navigational concept) 9.3 mg/dL 8 .8-10.2 Normal (applies to non-numeric results) [facility] (Carl Singh MD) Laboratory test finding (navigational concept) 20 U/L 7 -37 Normal (applies to non-numeric results) [facility] (Carl Singh MD) Laboratory test finding (navigational concept) 35 U/L 1 2-78 Normal (applies to non-numeric results) [facility] (Carl Singh MD) Laboratory test finding (navigational concept) 72 U/L 4 5-117 Normal (applies to non-numeric results) [facility] (Carl Singh MD) Laboratory test finding (navigational concept) 4.0 GM/DL 3 .2-5.2 Normal (applies to non-numeric results) [facility] (Carl Singh MD) Laboratory test finding (navigational concept) 6.7 GM/DL 6 .4-8.2 Normal (applies to non-numeric results) [facility] (Carl Singh MD) Laboratory test finding (navigational concept) 0.7 mg/dL 0 .2-1.0 Normal (applies to non-numeric results) [facility] (Carl Singh MD) Laboratory test finding (navigational concept) 1.5 1 .2-2.2 Normal (applies to non-numeric results) [facility] (Carl Singh MD) ID Date Data Source [id number] 02/21/2020 12:43:00 PM EST [facility] (Carl Singh MD) Name Value Range Interpretation Code Description Data Jenniffer rce(s) Supporting Document(s) Laboratory test finding (navigational concept) 5.6 % Normal (applies to non- numeric results) [facility] (Carl Singh MD) <content>REFERENCE RANGES:</content><br/ ><content></content>
<content><=5.6% NORMAL</content>
<content>5.7-6.4% SUGGESTS IMPAIRED GLUCOSE METABOLISM/PREDIABETIC</content>
<content>>= 6.5% ABNORMAL</content>
<content></content> Laboratory test finding (navigational concept) 114 mg/dL 6 0-110 Above high normal [facility] (Carl Singh MD) ID Date Data Source [id number] 02/21/2020 12:43:00 PM EST [facility] (Carl Singh MD) Name Value Range Interpretation Code Description Data Jenniffer rce(s) Supporting Document(s) Laboratory test finding (navigational concept) 5.8 10 4 .0-10.0 Normal (applies to non-numeric results) [facility] (Carl Singh MD) Laboratory test finding (navigational concept) 13.1 g/dL 1 2.0-15.5 Normal (applies to non-numeric results) [facility] (Carl Singh MD) Laboratory test finding (navigational concept) 4.50 10 4 .00-5.40 Normal (applies to non-numeric results) [facility] (Carl iSngh MD) Laboratory test finding (navigational concept) 40.7 % 3 6.0-47.0 Normal (applies to non-numeric results) [facility] (Carl Singh MD) Laboratory test finding (navigational concept) 29.1 pg 2 7.0-33.0 Normal (applies to non-numeric results) [facility] (Carl Singh MD) Laboratory test finding (navigational concept) 32.2 g/dL 3 2.0-36.5 Normal (applies to non-numeric results) [facility] (Carl Singh MD) Laboratory test finding (navigational concept) 90.4 fl 8 0.0-96.0 Normal (applies to non-numeric results) [facility] (Carl Singh MD) Laboratory test finding (navigational concept) 195 10 1 50-450 Normal (applies to non-numeric results) [facility] (Carl Singh MD) Laboratory test finding (navigational concept) 13.2 % 1 1.5-14.5 Normal (applies to non-numeric results) [facility] (Carl Singh MD) Laboratory test finding (navigational concept) 0.0 % 0 -0 Normal (applies to non- numeric results) [facility] (Carl Singh MD) Procedure Social History Code Duration Value Status Description Data Source(s ) Smoking 11/24/2020 12:00:00 AM EDT Patient is a former smoker completed Patient is a former smoker [facility] (Hasmukh Reed [employer]) Vital Signs ID Date Data Source UNK Name Value Range Interpretation Code Description Data Source(s) Body height 66 [in_i] 66 [in_i] [facility] (Carl Singh MD) 5'6" Body mass index (BMI) [Ratio] 25.0 kg/m2 25.0 k g/m2 [facility] (Carl Singh MD) Diastolic blood pressure 62 mm[Hg] 62 mm[Hg] [facility] (Carl Singh MD) Body weight 155.00 [lb_av] 155.00 [lb_av] [facility] (Carl Singh MD) Body temperature 98.3 [degF] 98.3 [degF] [facility] (Carl Singh MD) Systolic blood pressure 110 mm[Hg] 110 mm[Hg] M [facility] (Carl Singh MD) Heart rate 54 /min 54 /min [facility] (Carl Singh MD) Oxygen saturation in Arterial blood by Pulse oximetry 98 % 98 % [facility] (Carl Singh MD) Respiratory rate 18 /min 18 /min [facility] ( Carl Singh MD) Body surface area Derived from formula 1.82 m2 1.82 m2 [facility] ([facility]) Systolic blood pressure 126 mm[Hg] 126 mm[Hg] [facility] ([facility]) Diastolic blood pressure 70 mm[Hg] 70 mm[Hg] [facility] ([facility]) Body height 66 [in_i] 66 [in_i] [facility] ([facility]) 5'6" Body weight 160.00 [lb_av] 160.00 [lb_av] [facility] T ([facility]) Body mass index (BMI) [Ratio] 25.8 kg/m2 25.8 k g/m2 [facility] ([facility]) [place] body weight 130 [lb_av] 130 [lb_av] [facility] T ([facility]) [facility] 72.576 kg [facility]576 [facility] Heart rate 68 /min 68 /min [facility] (Carl Singh MD) Body mass index (BMI) [Ratio] 25.4 kg/m2 25.4 k g/m2 [facility] (Carl Singh MD) Body mass index (BMI) [Ratio] 25.4 kg/m2 25.4 k g/m2 [facility] (Carl Singh MD) Body temperature 97.7 [degF] 97.7 [degF] [facility] (Carl Singh MD) Systolic blood pressure 121 mm[Hg] 121 mm[Hg] M [facility] (Carl Singh MD) Diastolic blood pressure 63 mm[Hg] 63 mm[Hg] [facility] (Carl Singh MD) Oxygen saturation in Arterial blood by Pulse oximetry 95 % 95 % [facility] (Carl Singh MD) Body height 66 [in_i] 66 [in_i] [facility] (Carl Singh MD) 5'6" Body weight 157.12 [lb_av] 157.12 [lb_av] [facility] T (Carl Singh MD) Body temperature 97.7 [degF] 97.7 [degF] [facility] (Carl Singh MD) Systolic blood pressure 121 mm[Hg] 121 mm[Hg] M [facility] (Carl Singh MD) Diastolic blood pressure 63 mm[Hg] 63 mm[Hg] [facility] (Carl Singh MD) Heart rate 68 /min 68 /min [facility] (Carl Singh MD) Oxygen saturation in Arterial blood by Pulse oximetry 95 % 95 % [facility] (Carl Singh MD) Systolic blood pressure 166 mm[Hg] 166 mm[Hg] M [facility] ([facility] [employer] [employer]) Body height 65.75 [in_i] 65.75 [in_i] [facility] ([facility]) 5'5.75" Body weight 155.00 [lb_av] 155.00 [lb_av] [facility] T ([facility] [employer]) Body mass index (BMI) [Ratio] 25.2 kg/m2 25.2 k g/m2 [facility] ([facility] [employer]) Body surface area Derived from formula 1.79 m2 1.79 m2 [facility] ([facility] [employer]) Diastolic blood pressure 84 mm[Hg] 84 mm[Hg] [facility] ([facility] [employer]) Body height 66 [in_i] 66 [in_i] [facility] (Carl Singh MD) 5'6" Body weight 153.50 [lb_av] 153.50 [lb_av] [facility] T (Carl Singh MD) Body mass index (BMI) [Ratio] 24.8 kg/m2 24.8 k g/m2 [facility] (Carl Singh MD) Body temperature 97.2 [degF] 97.2 [degF] [facility] (Carl Singh MD) Systolic blood pressure 129 mm[Hg] 129 mm[Hg] M [facility] (Carl Singh MD) Diastolic blood pressure 73 mm[Hg] 73 mm[Hg] [facility] (Carl Singh MD) Heart rate 74 /min 74 /min [facility] (Carl Singh MD) Oxygen saturation in Arterial blood by Pulse oximetry 97 % 97 % [facility] (Carl Singh MD) Body height 66 [in_i] 66 [in_i] [facility] (Carl Singh MD) 5'6" Body weight 153.38 [lb_av] 153.38 [lb_av] [facility] T (Carl Singh MD) Body mass index (BMI) [Ratio] 24.8 kg/m2 24.8 k g/m2 [facility] (Carl Singh MD) Body temperature 97.5 [degF] 97.5 [degF] [facility] (Carl Singh MD) Systolic blood pressure 129 mm[Hg] 129 mm[Hg] M [facility] (Carl Singh MD) Diastolic blood pressure 67 mm[Hg] 67 mm[Hg] [facility] (Carl Singh MD) Heart rate 67 /min 67 /min [facility] (Carl Singh MD) Oxygen saturation in Arterial blood by Pulse oximetry 97 % 97 % [facility] (Carl Singh MD) Body height 66 [in_i] 66 [in_i] [facility] (Carl Singh MD) 5'6" Body weight 151.38 [lb_av] 151.38 [lb_av] [facility] T (Carl Singh MD) Body mass index (BMI) [Ratio] 24.4 kg/m2 24.4 k g/m2 [facility] (Carl Singh MD) Body temperature 98.0 [degF] 98.0 [degF] [facility] (Carl Singh MD) Systolic blood pressure 128 mm[Hg] 128 mm[Hg] M [facility] (Carl Singh MD) Diastolic blood pressure 78 mm[Hg] 78 mm[Hg] [facility] (Carl Singh MD) Heart rate 60 /min 60 /min [facility] (Carl Singh MD) Oxygen saturation in Arterial blood by Pulse oximetry 99 % 99 % [facility] (Carl Singh MD)
[2021-01-26] MEDS ORDERED: fentaNYL 100 MCG/2 ML INJECTION (J3010) As Ordered ONE (11:04)
[2021-01-26] MEDS ORDERED: LIDOCAINE 2% 100MG/5ML SDV (FOR ANES.) As Ordered ONE (11:04)
[2021-01-26] MEDS ORDERED: propofoL 500 MG/50 ML VIAL As Ordered ONE (11:04)
[2021-01-26 11:51] VITALS: BP 161/74
--- NOTE | 2021-01-26 11:51 | ROOR ---
Patient Name: Marissa Henao Procedure Date: 01/26/2021 10:57 AM Date of : 1945 Age: 75 Room: [facility] Gender: Female Note Status: Finalized Procedure: Upper GI endoscopy Indications: Heartburn Providers: Tim Dubon MD Referring MD: ELIESER TAPIA NP Requesting Provider: Medicines: Monitored Anesthesia Care Complications: No immediate complications. Procedure: Pre-Anesthesia Assessment: - Prior to the procedure, a History and Physical was performed, and patient medications and allergies were reviewed. The patient is competent. The risks and benefits of the procedure and the sedation options and risks were discussed with the patient. All questions were answered and informed consent was obtained. Patient identification and proposed procedure were verified by the physician, the nurse and the anesthesiologist in the procedure room. Mental Status Examination: alert and oriented. Airway Examination: normal oropharyngeal airway and neck mobility. Respiratory Examination: clear to auscultation. CV Examination: normal. Prophylactic Antibiotics: The patient does not require prophylactic antibiotics. Prior Anticoagulants: The patient has taken no previous anticoagulant or antiplatelet agents. ASA Grade Assessment: III - A patient with severe systemic disease. After reviewing the risks and benefits, the patient was deemed in satisfactory condition to undergo the procedure. The anesthesia plan was to use monitored anesthesia care (MAC). Immediately prior to administration of medications, the patient was re-assessed for adequacy to receive sedatives. The heart rate, respiratory rate, oxygen saturations, blood pressure, adequacy of pulmonary ventilation, and response to care were monitored throughout the procedure. The physical status of the patient was re-assessed after the procedure. The Endoscope was introduced through the mouth, and advanced to the second part of duodenum. The upper GI endoscopy was accomplished without difficulty. The patient tolerated the procedure well. Findings: The examined esophagus was normal. The Z-line was irregular and was found 40 cm from the incisors. Scattered mild inflammation characterized by erythema and granularity was found in the gastric body and in the gastric antrum. Biopsies were taken with a cold forceps for Helicobacter pylori testing. Verification of patient identification for the specimen was done by the physician and nurse using the patient's name, date and medical record number. Estimated blood loss was minimal. The duodenal bulb and second portion of the duodenum were normal. Impression: - Normal esophagus. - Z-line irregular, 40 cm from the incisors. - Gastritis. Biopsied. - Normal duodenal bulb and second portion of the duodenum. Recommendation: - Patient has a contact number available for emergencies. The signs and symptoms of potential delayed complications were discussed with the patient. Return to normal activities tomorrow. Written discharge instructions were provided to the patient. - High fiber diet. - Continue present medications. - Await pathology results. - Follow an antireflux regimen. - Use Prilosec (omeprazole) 40 mg PO Daily - to be taken occupational health rn on empty stomach as per the script instructions. Dose to be tapered gradually if tolerated based on symptoms and dietary measures. - Telephone GI clinic for pathology results in 2 weeks. - Return to GI clinic if persistent symptoms or new symptoms. - Return to primary care physician. Procedure Code(s): --- Professional --- 22512, Esophagogastroduodenoscopy, flexible, transoral; with biopsy, single or multiple Diagnosis Code(s): --- Professional --- K22.8, Other specified diseases of esophagus K29.70, Gastritis, unspecified, without bleeding R12, Heartburn CPT copyright 2019 [employer]. All rights reserved. The codes documented in this report are preliminary and upon professional development director review may be revised to meet current compliance requirements. Tim Dubon MD Tim Dubon MD 01/26/2021 11:51:08 AM Electronically signed by Tim Dubon MD Number of Addenda: 0 Note Initiated On: 01/26/2021 10:57 AM Estimated Blood Loss: Estimated blood loss was minimal.
--- NOTE | 2021-01-26 16:02 | ROOR ---
Patient Name: Marissa Henao Procedure Date: 01/26/2021 10:57 AM Date of : 1945 Age: 75 Room: [facility] Gender: Female Note Status: Finalized Procedure: Colonoscopy Indications: Screening for colorectal malignant neoplasm Providers: Tim Dubon MD Referring MD: ELIESER TAPIA NP Requesting Provider: Medicines: Monitored Anesthesia Care Complications: No immediate complications. Procedure: Pre-Anesthesia Assessment: - Prior to the procedure, a History and Physical was performed, and patient medications and allergies were reviewed. The patient is competent. The risks and benefits of the procedure and the sedation options and risks were discussed with the patient. All questions were answered and informed consent was obtained. Patient identification and proposed procedure were verified by the physician, the nurse and the anesthesiologist in the procedure room. Mental Status Examination: alert and oriented. Airway Examination: normal oropharyngeal airway and neck mobility. Respiratory Examination: clear to auscultation. CV Examination: normal. Prophylactic Antibiotics: The patient does not require prophylactic antibiotics. Prior Anticoagulants: The patient has taken no previous anticoagulant or antiplatelet agents. ASA Grade Assessment: II - A patient with mild systemic disease. After reviewing the risks and benefits, the patient was deemed in satisfactory condition to undergo the procedure. The anesthesia plan was to use monitored anesthesia care (MAC). Immediately prior to administration of medications, the patient was re-assessed for adequacy to receive sedatives. The heart rate, respiratory rate, oxygen saturations, blood pressure, adequacy of pulmonary ventilation, and response to care were monitored throughout the procedure. The physical status of the patient was re-assessed after the procedure. The Colonoscope was introduced through the anus and advanced to the terminal ileum, with identification of the appendiceal orifice and IC valve. The colonoscopy was performed without difficulty. The patient tolerated the procedure well. The quality of the bowel preparation was good. The terminal ileum, ileocecal valve, appendiceal orifice, and rectum were photographed. Scope insertion time was 3 minutes. Scope withdrawal time was 8 minutes. The total duration of the procedure was 12 minutes. Findings: The perianal and digital rectal examinations were normal. The terminal ileum appeared normal. Two sessile polyps were found in the ascending colon and cecum. The polyps were 8 to 10 mm in size. These polyps were removed with a cold snare. Resection and retrieval were complete. Verification of patient identification for the specimen was done by the physician and nurse using the patient's name, date and medical record number. Estimated blood loss was minimal. To close a defect after polypectomy, one hemostatic clip was successfully placed. There was no bleeding at the end of the procedure. Non-bleeding external and internal hemorrhoids were found during retroflexion. The hemorrhoids were medium-sized. Impression: - The examined portion of the ileum was normal. - Two 8 to 10 mm polyps in the ascending colon and in the cecum, removed with a cold snare. Resected and retrieved. Clip was placed. - Non-bleeding external and internal hemorrhoids. Recommendation: - Patient has a contact number available for emergencies. The signs and symptoms of potential delayed complications were discussed with the patient. Return to normal activities tomorrow. Written discharge instructions were provided to the patient. - High fiber diet. - Continue present medications. - Await pathology results. - Repeat colonoscopy in 5 years for surveillance based on pathology results and depending on clinical and functional status. - Telephone GI clinic for pathology results in 2 weeks. - Return to primary care physician. Procedure Code(s): --- Professional --- 89515, Colonoscopy, flexible; with removal of tumor(s), polyp(s), or other lesion(s) by snare technique Diagnosis Code(s): --- Professional --- Z12.11, Encounter for screening for malignant neoplasm of colon K64.8, Other hemorrhoids K63.5, Polyp of colon CPT copyright 2019 [employer]. All rights reserved. The codes documented in this report are preliminary and upon freezing machine operator review may be revised to meet current compliance requirements. Tim Dubon MD Tim Dubon MD 01/26/2021 4:01:29 PM Electronically signed by Tim Dubon MD Number of Addenda: 0 Note Initiated On: 01/26/2021 10:57 AM Estimated Blood Loss: Estimated blood loss was minimal.
== END 2021-01-26 11:53 | disposition home or self-care (01) ==
LOC: M OPP 09:01
PROVIDERS: ATTEND Internal Medicine Gastroenterology
DX: D12.6 Benign neoplasm of colon, unspecified (principal); K64.8 Other hemorrhoids; K22.89 Other specified disease of esophagus; K29.70 Gastritis, unspecified, without bleeding; R12 Heartburn; Z12.11 Encounter for screening for malignant neoplasm of colon; I48.91 Unspecified atrial fibrillation; I10 Essential (primary) hypertension; E78.5 Hyperlipidemia, unspecified; M19.90 Unspecified osteoarthritis, unspecified site; Z88.6 Allergy status to analgesic agent; Z79.899 Other long term (current) drug therapy; Z87.891 Personal history of nicotine dependence
CPT/HCPCS: 43239; 45385; 88305; J3010

== ENCOUNTER → 2021-03-02 | Outpatient (CLI) | payer MEDICARE, OTHER ==
[~2021-03-02] MED LIST changes: -NS 1,000 ML IV ONE
[2021-03-02 14:21] LABS: HEMATOCRIT 39.9 % (36.0-47.0); HEMOGLOBIN 13.1 g/dl (12.0-15.5); MEAN CORPUSCULAR HEMOGLOBIN 28.9 pg (27.0-33.0); MEAN CORPUSCULAR HGB CONC 32.8 g/dl (32.0-36.5); MEAN CORPUSCULAR VOLUME 87.9 fl (80.0-96.0); PLATELET COUNT, AUTOMATED 197 10^3/uL (150-450); RED BLOOD COUNT 4.54 10^6/uL (4.00-5.40); WHITE BLOOD COUNT 5.4 10^3/uL (4.0-10.0)
[2021-03-02 14:42] LABS: ALT/SGPT 28 U/L (12-78); BILIRUBIN,TOTAL 0.6 MG/DL (0.2-1.0); BLOOD UREA NITROGEN 14 MG/DL (7-18); CALCIUM LEVEL 9.5 MG/DL (8.8-10.2); CARBON DIOXIDE LEVEL 31 MEQ/L (21-32); CHLORIDE LEVEL 107 MEQ/L (98-107); CHOLESTEROL LEVEL 177 MG/DL (<200); CREATININE FOR GFR 0.76 MG/DL (0.55-1.30); GLOMERULAR FILTRATION RATE > 60.0 (>39); GLUCOSE, FASTING 85 MG/DL (70-100); HDL CHOLESTEROL 68 MG/DL (>40); POTASSIUM SERUM 4.4 MEQ/L (3.5-5.1); SODIUM LEVEL 142 MEQ/L (136-145); TRIGLYCERIDES LEVEL 75 MG/DL (<150)
[2021-03-02 14:43] LABS: ALBUMIN 4.1 GM/DL (3.2-5.2); CHOLESTEROL RISK RATIO 2.602 (<5); IRON (FE) 91 UG/DL (50-170); LDL CHOLESTEROL 94 MG/DL (<100); NON-HDL-C 109 MG/DL; TOTAL PROTEIN 6.6 GM/DL (6.4-8.2)
== END ==
LOC: M LAB 13:37
PROVIDERS: ATTEND Nurse Practitioner Family
DX: I10 Essential (primary) hypertension (principal); D64.9 Anemia, unspecified; E78.5 Hyperlipidemia, unspecified; E55.9 Vitamin D deficiency, unspecified

== ENCOUNTER → 2021-05-29 | Outpatient (CLI) | payer MEDICARE, OTHER ==
[~2021-05-29] MED LIST changes: +LOSA25TA13 PO; -LOSA25TA14 PO; -MONT10TA10 PO; +MONT10TA97 PO; -OMEP-221 PO; +OMEP40CA5 PO
[2021-05-29 14:43] LABS: HEMATOCRIT 41.1 % (36.0-47.0); HEMOGLOBIN 13.8 g/dl (12.0-15.5); MEAN CORPUSCULAR HEMOGLOBIN 29.8 pg (27.0-33.0); MEAN CORPUSCULAR HGB CONC 33.6 g/dl (32.0-36.5); MEAN CORPUSCULAR VOLUME 88.8 fl (80.0-96.0); PLATELET COUNT, AUTOMATED 191 10^3/uL (150-450); RED BLOOD COUNT 4.63 10^6/uL (4.00-5.40); WHITE BLOOD COUNT 4.8 10^3/uL (4.0-10.0)
[2021-05-29 15:10] LABS: ALBUMIN 4.1 GM/DL (3.2-5.2); ALT/SGPT 33 U/L (12-78); BILIRUBIN,TOTAL 0.8 MG/DL (0.2-1.0); BLOOD UREA NITROGEN 18 MG/DL (7-18); CALCIUM LEVEL 9.9 MG/DL (8.8-10.2); CARBON DIOXIDE LEVEL 34 MEQ/L (21-32); CHLORIDE LEVEL 106 MEQ/L (98-107); CHOLESTEROL LEVEL 172 MG/DL (<200); CHOLESTEROL RISK RATIO 2.819 (<5); GLOMERULAR FILTRATION RATE > 60.0 (>39); GLUCOSE, FASTING 93 MG/DL (70-100); HDL CHOLESTEROL 61 MG/DL (>40); LDL CHOLESTEROL 96 MG/DL (<100); NON-HDL-C 111 MG/DL; POTASSIUM SERUM 4.4 MEQ/L (3.5-5.1); SODIUM LEVEL 142 MEQ/L (136-145); TOTAL PROTEIN 6.6 GM/DL (6.4-8.2); TRIGLYCERIDES LEVEL 76 MG/DL (<150)
[2021-05-29 15:19] LABS: TOTAL 25(OH) VITAMIN D 64.7 NG/ML (30.0-100.0)
== END ==
LOC: M LAB 13:33
PROVIDERS: ATTEND Nurse Practitioner Family
DX: E78.5 Hyperlipidemia, unspecified (principal); I10 Essential (primary) hypertension; E55.9 Vitamin D deficiency, unspecified; Z79.899 Other long term (current) drug therapy

== ENCOUNTER → 2021-09-01 | Outpatient (CLI) | payer MEDICARE, OTHER ==
[2021-09-01 14:01] LABS: HEMATOCRIT 39.4 % (36.0-47.0); HEMOGLOBIN 13.2 g/dl (12.0-15.5); MEAN CORPUSCULAR HEMOGLOBIN 30.7 pg (27.0-33.0); MEAN CORPUSCULAR HGB CONC 33.5 g/dl (32.0-36.5); MEAN CORPUSCULAR VOLUME 91.6 fl (80.0-96.0); PLATELET COUNT, AUTOMATED 196 10^3/uL (150-450); WHITE BLOOD COUNT 4.6 10^3/uL (4.0-10.0)
[2021-09-01 15:28] LABS: ALBUMIN 3.9 GM/DL (3.2-5.2); ALT/SGPT 30 U/L (12-78); BILIRUBIN,TOTAL 0.7 MG/DL (0.2-1.0); BLOOD UREA NITROGEN 16 MG/DL (7-18); CALCIUM LEVEL 9.9 MG/DL (8.8-10.2); CARBON DIOXIDE LEVEL 33 MEQ/L (21-32); CHLORIDE LEVEL 105 MEQ/L (98-107); CHOLESTEROL LEVEL 166 MG/DL (<200); CHOLESTEROL RISK RATIO 2.477 (<5); CREATININE FOR GFR 0.74 MG/DL (0.55-1.30); GLOMERULAR FILTRATION RATE > 60.0 (>39); GLUCOSE, FASTING 88 MG/DL (70-100); HDL CHOLESTEROL 67 MG/DL (>40); LDL CHOLESTEROL 84 MG/DL (<100); MAGNESIUM LEVEL 2.4 MG/DL (1.8-2.4); NON-HDL-C 99 MG/DL; POTASSIUM SERUM 4.3 MEQ/L (3.5-5.1); SODIUM LEVEL 143 MEQ/L (136-145); TOTAL PROTEIN 6.6 GM/DL (6.4-8.2); TRIGLYCERIDES LEVEL 74 MG/DL (<150)
[2021-09-01 15:37] LABS: TOTAL 25(OH) VITAMIN D 59.8 NG/ML (30.0-100.0); VITAMIN B12 LEVEL 529 PG/ML (247-911)
== END ==
LOC: M LAB 13:03
PROVIDERS: ATTEND Nurse Practitioner Family
DX: E78.5 Hyperlipidemia, unspecified (principal); I10 Essential (primary) hypertension; E55.9 Vitamin D deficiency, unspecified; E53.8 Deficiency of other specified B group vitamins; D64.9 Anemia, unspecified; Z79.899 Other long term (current) drug therapy

== ENCOUNTER → 2021-11-30 | Outpatient (CLI) | payer MEDICARE, OTHER ==
[2021-11-30 13:15] LABS: HEMATOCRIT 38.5 % (36.0-47.0); MEAN CORPUSCULAR HEMOGLOBIN 30.7 pg (27.0-33.0); MEAN CORPUSCULAR HGB CONC 33.8 g/dl (32.0-36.5); MEAN CORPUSCULAR VOLUME 90.8 fl (80.0-96.0); PLATELET COUNT, AUTOMATED 178 10^3/uL (150-450); RED BLOOD COUNT 4.24 10^6/uL (4.00-5.40); WHITE BLOOD COUNT 4.4 10^3/uL (4.0-10.0)
[2021-11-30 13:45] LABS: BLOOD UREA NITROGEN 16 MG/DL (7-18); CARBON DIOXIDE LEVEL 32 MEQ/L (21-32); CHLORIDE LEVEL 105 MEQ/L (98-107); CREATININE FOR GFR 0.74 MG/DL (0.55-1.30); GLOMERULAR FILTRATION RATE > 60.0 (>39); GLUCOSE, FASTING 88 MG/DL (70-100); POTASSIUM SERUM 4.2 MEQ/L (3.5-5.1); SODIUM LEVEL 139 MEQ/L (136-145)
[2021-11-30 13:46] LABS: ALBUMIN 3.7 GM/DL (3.2-5.2); ALT/SGPT 28 U/L (12-78); BILIRUBIN,TOTAL 0.7 MG/DL (0.2-1.0); CALCIUM LEVEL 9.3 MG/DL (8.8-10.2); CHOLESTEROL LEVEL 168 MG/DL (<200); CHOLESTEROL RISK RATIO 2.584 (<5); HDL CHOLESTEROL 65 MG/DL (>40); IRON (FE) 120 UG/DL (50-170); LDL CHOLESTEROL 83 MG/DL (<100); NON-HDL-C 103 MG/DL; TOTAL PROTEIN 6.5 GM/DL (6.4-8.2); TRIGLYCERIDES LEVEL 102 MG/DL (<150)
[2021-11-30 14:36] LABS: TOTAL 25(OH) VITAMIN D 59.8 NG/ML (30.0-100.0)
== END ==
LOC: M LAB 12:05
PROVIDERS: ATTEND Nurse Practitioner Family
DX: E78.5 Hyperlipidemia, unspecified (principal); I10 Essential (primary) hypertension; E55.9 Vitamin D deficiency, unspecified; Z79.899 Other long term (current) drug therapy

== ENCOUNTER 2022-02-20 11:00 | Emergency (ER) | payer MEDICARE, OTHER ==
[~2022-02-20] VITALS: Ht 167.6 cm; Wt 71.5 kg
[2022-02-20 12:41] LABS: BASO % 0.3 % (0.0-1.0); EOS # 0.1 10^3/uL (0.0-0.5); HEMATOCRIT 36.9 % (36.0-47.0); HEMOGLOBIN 12.4 g/dl (12.0-15.5); LYMPH % 16.4 % (24.0-44.0); MEAN CORPUSCULAR HGB CONC 33.6 g/dl (32.0-36.5); MEAN CORPUSCULAR VOLUME 89.3 fl (80.0-96.0); MONO # 0.5 10^3/uL (0.0-0.8); MONO % 8.8 % (2.0-8.0); NEUTROPHILS # 4.3 10^3/uL (1.5-8.5); NEUTROPHILS % 73.2 % (36.0-66.0); PLATELET COUNT, AUTOMATED 179 10^3/uL (150-450); RED BLOOD COUNT 4.13 10^6/uL (4.00-5.40); WHITE BLOOD COUNT 5.9 10^3/uL (4.0-10.0)
[2022-02-20 13:12] LABS: BLOOD UREA NITROGEN 17 MG/DL (9-23); CALCIUM LEVEL 8.9 MG/DL (8.3-10.6); CARBON DIOXIDE LEVEL 27 MMOL/L (20-31); CHLORIDE LEVEL 106 MMOL/L (98-107); CREATININE FOR GFR 0.71 MG/DL (0.55-1.30); GLOMERULAR FILTRATION RATE > 60.0 (>39); GLUCOSE, FASTING 96 MG/DL (74-106); SODIUM LEVEL 143 MMOL/L (136-145)
[2022-02-20 14:00] VITALS: BP 169/76
== END 2022-02-20 14:07 | disposition home or self-care (01) ==
LOC: M ED 11:00
DX: I10 Essential (primary) hypertension (principal); R00.1 Bradycardia, unspecified; I48.91 Unspecified atrial fibrillation; K21.9 Gastro-esophageal reflux disease without esophagitis; G47.30 Sleep apnea, unspecified; Z88.6 Allergy status to analgesic agent; Z79.899 Other long term (current) drug therapy

== ENCOUNTER → 2022-03-15 | Outpatient (CLI) | payer MEDICARE, OTHER ==
[2022-03-15 12:34] LABS: HEMATOCRIT 39.7 % (36.0-47.0); HEMOGLOBIN 13.2 g/dl (12.0-15.5); MEAN CORPUSCULAR HEMOGLOBIN 30.6 pg (27.0-33.0); MEAN CORPUSCULAR HGB CONC 33.2 g/dl (32.0-36.5); MEAN CORPUSCULAR VOLUME 91.9 fl (80.0-96.0); PLATELET COUNT, AUTOMATED 184 10^3/uL (150-450); RED BLOOD COUNT 4.32 10^6/uL (4.00-5.40); WHITE BLOOD COUNT 4.3 10^3/uL (4.0-10.0)
[2022-03-15 13:01] LABS: ALBUMIN 3.8 G/DL (3.2-5.2); ALKALINE PHOSPHATASE 64 U/L (46-116); ALT/SGPT 28 U/L (7.0-40); AST/SGOT 25 U/L (<34); BLOOD UREA NITROGEN 18 MG/DL (9-23); CALCIUM LEVEL 9.2 MG/DL (8.3-10.6); CARBON DIOXIDE LEVEL 29 MMOL/L (20-31); CHLORIDE LEVEL 105 MMOL/L (98-107); CHOLESTEROL LEVEL 165 MG/DL (<200); CHOLESTEROL RISK RATIO 2.68 (<5); CPK CREATINE PHOSPHOKINASE 107 U/L (34-145); CREATININE FOR GFR 0.77 MG/DL (0.55-1.30); GLOMERULAR FILTRATION RATE > 60.0 (>39); GLUCOSE, FASTING 98 MG/DL (74-106); HDL CHOLESTEROL 61.4 MG/DL (>40); IRON (FE) 107 UG/DL (50-170); LDL CHOLESTEROL 85.2 MG/DL (<100); NON-HDL-C 104 MG/DL; POTASSIUM SERUM 4.3 MMOL/L (3.5-5.1); SODIUM LEVEL 144 MMOL/L (136-145); TOTAL PROTEIN 6.2 G/DL (5.7-8.2); TRIGLYCERIDES LEVEL 92 MG/DL (<150)
[2022-03-15 13:04] LABS: TOTAL 25(OH) VITAMIN D 59.4 NG/ML (20.0-100.0)
== END ==
LOC: M LAB 11:52
PROVIDERS: ATTEND Nurse Practitioner Family
DX: I10 Essential (primary) hypertension (principal); E78.5 Hyperlipidemia, unspecified; D64.9 Anemia, unspecified; E55.9 Vitamin D deficiency, unspecified; Z79.899 Other long term (current) drug therapy

== ENCOUNTER → 2022-06-14 | Outpatient (CLI) | payer MEDICARE, OTHER ==
[2022-06-14 12:30] LABS: HEMATOCRIT 39.8 % (36.0-47.0); HEMOGLOBIN 13.2 g/dl (12.0-15.5); MEAN CORPUSCULAR HGB CONC 33.2 g/dl (32.0-36.5); MEAN CORPUSCULAR VOLUME 90.5 fl (80.0-96.0); PLATELET COUNT, AUTOMATED 202 10^3/uL (150-450); WHITE BLOOD COUNT 5.1 10^3/uL (4.0-10.0)
[2022-06-14 12:46] LABS: CPK CREATINE PHOSPHOKINASE 74 U/L (34-145)
[2022-06-14 12:47] LABS: IRON (FE) 98 UG/DL (50-170)
[2022-06-14 14:35] LABS: ALBUMIN 3.7 G/DL (3.2-5.2); ALKALINE PHOSPHATASE 64 U/L (46-116); ALT/SGPT 28 U/L (7.0-40); AST/SGOT 21 U/L (<34); BILIRUBIN,TOTAL 0.7 MG/DL (0.3-1.2); BLOOD UREA NITROGEN 19 MG/DL (9-23); CALCIUM LEVEL 9.4 MG/DL (8.3-10.6); CARBON DIOXIDE LEVEL 32 MMOL/L (20-31); CHLORIDE LEVEL 104 MMOL/L (98-107); CHOLESTEROL LEVEL 168 MG/DL (<200); CHOLESTEROL RISK RATIO 2.82 (<5); CREATININE FOR GFR 0.79 MG/DL (0.55-1.30); GLOMERULAR FILTRATION RATE > 60.0 (>39); GLUCOSE, FASTING 95 MG/DL (74-106); HDL CHOLESTEROL 59.5 MG/DL (>40); NON-HDL-C 108.5 MG/DL; POTASSIUM SERUM 4.4 MMOL/L (3.5-5.1); SODIUM LEVEL 141 MMOL/L (136-145); TOTAL 25(OH) VITAMIN D 59.7 NG/ML (20.0-100.0)
[2022-06-14 18:59] LABS: LDL CHOLESTEROL 88.5 MG/DL (<100); TOTAL PROTEIN 6.1 G/DL (5.7-8.2); TRIGLYCERIDES LEVEL 100 MG/DL (<150)
== END ==
LOC: M LAB 10:52
PROVIDERS: ATTEND Internal Medicine Cardiovascular Disease
DX: E78.5 Hyperlipidemia, unspecified (principal); I10 Essential (primary) hypertension; E55.9 Vitamin D deficiency, unspecified; E61.1 Iron deficiency; Z79.899 Other long term (current) drug therapy

== ENCOUNTER 2022-06-17 05:59 | Emergency (ER) | payer MEDICARE, OTHER ==
[~2022-06-17] VITALS: Ht 167.6 cm; Wt 77.6 kg
[2022-06-17 06:48] LABS: BASO % 0.6 % (0.0-1.0); EOS # 0.1 10^3/uL (0.0-0.5); HEMATOCRIT 40.2 % (36.0-47.0); HEMOGLOBIN 13.6 g/dl (12.0-15.5); LYMPH # 1.3 10^3/uL (1.5-5.0); MEAN CORPUSCULAR HEMOGLOBIN 30.2 pg (27.0-33.0); MEAN CORPUSCULAR HGB CONC 33.8 g/dl (32.0-36.5); MEAN CORPUSCULAR VOLUME 89.3 fl (80.0-96.0); MONO # 0.6 10^3/uL (0.0-0.8); MONO % 11.2 % (2.0-8.0); NEUTROPHILS # 3.1 10^3/uL (1.5-8.5); PLATELET COUNT, AUTOMATED 193 10^3/uL (150-450); WHITE BLOOD COUNT 5.1 10^3/uL (4.0-10.0)
[2022-06-17 07:10] LABS: LIPASE 31 U/L (12-53)
[2022-06-17 07:12] LABS: ALBUMIN 3.8 G/DL (3.2-5.2); ALKALINE PHOSPHATASE 63 U/L (46-116); ALT/SGPT 28 U/L (7.0-40); AST/SGOT 21 U/L (<34); BILIRUBIN,DIRECT 0.1 MG/DL (<0.4); BILIRUBIN,TOTAL 0.5 MG/DL (0.3-1.2); BLOOD UREA NITROGEN 25 MG/DL (9-23); CALCIUM LEVEL 9.5 MG/DL (8.3-10.6); CARBON DIOXIDE LEVEL 30 MMOL/L (20-31); CHLORIDE LEVEL 104 MMOL/L (98-107); CK-MB VALUE MASS 1.7 NG/ML (<3.6); CPK CREATINE PHOSPHOKINASE 93 U/L (34-145); CREATININE FOR GFR 0.85 MG/DL (0.55-1.30); GLOMERULAR FILTRATION RATE > 60.0 (>39); GLUCOSE, FASTING 108 MG/DL (74-106); MB/CK RELATIVE INDEX 1.82 (< OR =4); SODIUM LEVEL 142 MMOL/L (136-145); TOTAL PROTEIN 6.3 G/DL (5.7-8.2)
[2022-06-17 07:15] LABS: THYROID STIMULATING HORMONE 4.739 uIU/ML (0.55-4.78)
[2022-06-17 07:26] LABS: INR 0.91; PROTHROMBIN TIME 12.4 SECONDS (12.5-14.5)
[2022-06-17 07:52] LABS: CK-MB VALUE MASS 1.3 NG/ML (<3.6)
[2022-06-17 07:53] LABS: MB/CK RELATIVE INDEX 1.54 (< OR =4)
[2022-06-17] MEDS ORDERED: ASPIRIN 325 MG TAB PO ONE (08:05)
[2022-06-17] MEDS ORDERED: ISOVUE-370 76% 100ML VIAL As Ordered ONE (08:16)
[2022-06-17 11:31] VITALS: BP 158/78
== END 2022-06-17 11:33 | disposition short-term general hospital (02) ==
LOC: M ED 05:59
DX: I20.0 Unstable angina (principal); I48.91 Unspecified atrial fibrillation; I10 Essential (primary) hypertension; E78.5 Hyperlipidemia, unspecified; K21.9 Gastro-esophageal reflux disease without esophagitis; J45.909 Unspecified asthma, uncomplicated; Z87.891 Personal history of nicotine dependence; Z88.6 Allergy status to analgesic agent; Z79.899 Other long term (current) drug therapy
CPT/HCPCS: 36415; 71045; 71275; 80048; 80076; 82550; 82553; 83690; 83880; 84443; 84484; 85025; 85610; 93005; 93041; 94760; 99285; Q9967

== ENCOUNTER → 2022-08-20 | Outpatient (CLI) | payer MEDICARE, OTHER ==
[2022-08-20 12:55] LABS: ALBUMIN 3.8 G/DL (3.2-5.2); ALKALINE PHOSPHATASE 59 U/L (46-116); ALT/SGPT 26 U/L (7.0-40); AST/SGOT 20 U/L (<34); BILIRUBIN,TOTAL 0.9 MG/DL (0.3-1.2); BLOOD UREA NITROGEN 22 MG/DL (9-23); CALCIUM LEVEL 9.2 MG/DL (8.3-10.6); CARBON DIOXIDE LEVEL 33 MMOL/L (20-31); CHLORIDE LEVEL 106 MMOL/L (98-107); CREATININE FOR GFR 0.82 MG/DL (0.55-1.30); GLOMERULAR FILTRATION RATE > 60.0 (>39); GLUCOSE, FASTING 115 MG/DL (74-106); POTASSIUM SERUM 4.6 MMOL/L (3.5-5.1); SODIUM LEVEL 142 MMOL/L (136-145); TOTAL PROTEIN 6.2 G/DL (5.7-8.2)
== END ==
LOC: M LAB 11:50
PROVIDERS: ATTEND Nurse Practitioner Family
DX: I10 Essential (primary) hypertension (principal); R60.0 Localized edema

== ENCOUNTER → 2022-10-22 | Outpatient (CLI) | payer MEDICARE, OTHER ==
[2022-10-22 12:26] LABS: HEMATOCRIT 40.6 % (36.0-47.0); HEMOGLOBIN 13.6 g/dl (12.0-15.5); MEAN CORPUSCULAR HEMOGLOBIN 30.2 pg (27.0-33.0); MEAN CORPUSCULAR HGB CONC 33.5 g/dl (32.0-36.5); PLATELET COUNT, AUTOMATED 205 10^3/uL (150-450); RED BLOOD COUNT 4.51 10^6/uL (4.00-5.40); WHITE BLOOD COUNT 5.8 10^3/uL (4.0-10.0)
[2022-10-22 12:58] LABS: CPK CREATINE PHOSPHOKINASE 94 U/L (34-145)
[2022-10-22 12:59] LABS: ALBUMIN 3.8 G/DL (3.2-5.2); ALKALINE PHOSPHATASE 81 U/L (46-116); ALT/SGPT 41 U/L (7.0-40); AST/SGOT 28 U/L (<34); BILIRUBIN,TOTAL 0.8 MG/DL (0.3-1.2); BLOOD UREA NITROGEN 19 MG/DL (9-23); CALCIUM LEVEL 9.5 MG/DL (8.3-10.6); CARBON DIOXIDE LEVEL 34 MMOL/L (20-31); CHLORIDE LEVEL 100 MMOL/L (98-107); CHOLESTEROL LEVEL 177 MG/DL (<200); CHOLESTEROL RISK RATIO 3.02 (<5); CREATININE FOR GFR 0.79 MG/DL (0.55-1.30); GLOMERULAR FILTRATION RATE > 60.0 (>39); GLUCOSE, FASTING 106 MG/DL (74-106); HDL CHOLESTEROL 58.5 MG/DL (>40); IRON (FE) 131 UG/DL (50-170); LDL CHOLESTEROL 84.3 MG/DL (<100); NON-HDL-C 118.5 MG/DL; POTASSIUM SERUM 4.1 MMOL/L (3.5-5.1); SODIUM LEVEL 140 MMOL/L (136-145); TOTAL PROTEIN 6.5 G/DL (5.7-8.2); TRIGLYCERIDES LEVEL 171 MG/DL (<150)
== END ==
LOC: M LAB 11:00
PROVIDERS: ATTEND Nurse Practitioner Family
DX: E78.5 Hyperlipidemia, unspecified (principal); I10 Essential (primary) hypertension; D50.9 Iron deficiency anemia, unspecified

== ENCOUNTER → 2023-01-26 | Outpatient (CLI) | payer MEDICARE, OTHER ==
[2023-01-26 13:58] LABS: BASO % 0.5 % (0.0-1.0); EOS # 0.1 10^3/uL (0.0-0.5); EOS % 0.8 % (0.0-3.0); HEMATOCRIT 38.1 % (36.0-47.0); LYMPH # 1.1 10^3/uL (1.5-5.0); LYMPH % 17.6 % (24.0-44.0); MEAN CORPUSCULAR HGB CONC 34.1 g/dl (32.0-36.5); MEAN CORPUSCULAR VOLUME 90.9 fl (80.0-96.0); MONO # 0.5 10^3/uL (0.0-0.8); MONO % 8.8 % (2.0-8.0); NEUTROPHILS # 4.4 10^3/uL (1.5-8.5); PLATELET COUNT, AUTOMATED 224 10^3/uL (150-450); RED BLOOD COUNT 4.19 10^6/uL (4.00-5.40); WHITE BLOOD COUNT 6.1 10^3/uL (4.0-10.0)
[2023-01-26 14:26] LABS: CPK CREATINE PHOSPHOKINASE 111 U/L (34-145); IRON (FE) 67 UG/DL (50-170)
[2023-01-26 14:29] LABS: ALBUMIN 3.8 G/DL (3.2-5.2); ALKALINE PHOSPHATASE 77 U/L (46-116); ALT/SGPT 28 U/L (7.0-40); AST/SGOT 18 U/L (<34); BILIRUBIN,TOTAL 0.8 MG/DL (0.3-1.2); BLOOD UREA NITROGEN 25 MG/DL (9-23); CALCIUM LEVEL 9.6 MG/DL (8.3-10.6); CARBON DIOXIDE LEVEL 33 MMOL/L (20-31); CHLORIDE LEVEL 103 MMOL/L (98-107); CHOLESTEROL LEVEL 162 MG/DL (<200); CHOLESTEROL RISK RATIO 2.89 (<5); CREATININE FOR GFR 0.74 MG/DL (0.55-1.30); GLOMERULAR FILTRATION RATE > 60.0 (>39); GLUCOSE, FASTING 100 MG/DL (74-106); HDL CHOLESTEROL 55.9 MG/DL (>40); LDL CHOLESTEROL 91.1 MG/DL (<100); NON-HDL-C 106.1 MG/DL; SODIUM LEVEL 141 MMOL/L (136-145); TOTAL PROTEIN 6.6 G/DL (5.7-8.2); TRIGLYCERIDES LEVEL 75 MG/DL (<150)
== END ==
LOC: M LAB 12:41
PROVIDERS: ATTEND Nurse Practitioner Family
DX: E78.5 Hyperlipidemia, unspecified (principal); D64.9 Anemia, unspecified; E55.9 Vitamin D deficiency, unspecified

== ENCOUNTER → 2023-05-04 | Outpatient (CLI) | payer MEDICARE, OTHER ==
[2023-05-04 14:25] LABS: BASO % 0.5 % (0.0-1.0); EOS # 0.1 10^3/uL (0.0-0.5); EOS % 1.7 % (0.0-3.0); HEMATOCRIT 36.4 % (36.0-47.0); HEMOGLOBIN 12.5 g/dl (12.0-15.5); LYMPH # 1.2 10^3/uL (1.5-5.0); LYMPH % 19.9 % (24.0-44.0); MEAN CORPUSCULAR HEMOGLOBIN 31.6 pg (27.0-33.0); MEAN CORPUSCULAR HGB CONC 34.3 g/dl (32.0-36.5); MEAN CORPUSCULAR VOLUME 91.9 fl (80.0-96.0); MONO # 0.5 10^3/uL (0.0-0.8); MONO % 9.3 % (2.0-8.0); NEUTROPHILS % 68.4 % (36.0-66.0); PLATELET COUNT, AUTOMATED 216 10^3/uL (150-450); RED BLOOD COUNT 3.96 10^6/uL (4.00-5.40); WHITE BLOOD COUNT 5.8 10^3/uL (4.0-10.0)
[2023-05-04 14:51] LABS: CPK CREATINE PHOSPHOKINASE 87 U/L (34-145)
[2023-05-04 14:52] LABS: ALBUMIN 3.6 G/DL (3.2-5.2); ALKALINE PHOSPHATASE 75 U/L (46-116); ALT/SGPT 31 U/L (7.0-40); AST/SGOT 17 U/L (<34); BILIRUBIN,TOTAL 0.8 MG/DL (0.3-1.2); BLOOD UREA NITROGEN 20 MG/DL (9-23); CALCIUM LEVEL 9.7 MG/DL (8.3-10.6); CARBON DIOXIDE LEVEL 33 MMOL/L (20-31); CHLORIDE LEVEL 102 MMOL/L (98-107); CHOLESTEROL LEVEL 149 MG/DL (<200); CHOLESTEROL RISK RATIO 2.58 (<5); CREATININE FOR GFR 0.84 MG/DL (0.55-1.30); GLOMERULAR FILTRATION RATE > 60.0 (>39); GLUCOSE, FASTING 92 MG/DL (74-106); HDL CHOLESTEROL 57.7 MG/DL (>40); LDL CHOLESTEROL 69.1 MG/DL (<100); NON-HDL-C 91.3 MG/DL; POTASSIUM SERUM 4.3 MMOL/L (3.5-5.1); SODIUM LEVEL 138 MMOL/L (136-145); TOTAL PROTEIN 6.3 G/DL (5.7-8.2); TRIGLYCERIDES LEVEL 111 MG/DL (<150)
== END ==
LOC: M LAB 13:27
PROVIDERS: ATTEND Nurse Practitioner Family
DX: E78.5 Hyperlipidemia, unspecified (principal); E55.9 Vitamin D deficiency, unspecified

== ENCOUNTER → 2023-08-04 | Outpatient (CLI) | payer MEDICARE, OTHER ==
[2023-08-04 14:52] LABS: BASO % 0.7 % (0.0-1.0); EOS # 0.1 10^3/uL (0.0-0.5); EOS % 1.4 % (0.0-3.0); HEMATOCRIT 39.4 % (36.0-47.0); HEMOGLOBIN 13.3 g/dl (12.0-15.5); LYMPH # 1.2 10^3/uL (1.5-5.0); LYMPH % 20.9 % (24.0-44.0); MEAN CORPUSCULAR HEMOGLOBIN 29.8 pg (27.0-33.0); MEAN CORPUSCULAR HGB CONC 33.8 g/dl (32.0-36.5); MEAN CORPUSCULAR VOLUME 88.3 fl (80.0-96.0); MONO # 0.6 10^3/uL (0.0-0.8); NEUTROPHILS # 3.9 10^3/uL (1.5-8.5); NEUTROPHILS % 66.7 % (36.0-66.0); PLATELET COUNT, AUTOMATED 224 10^3/uL (150-450); RED BLOOD COUNT 4.46 10^6/uL (4.00-5.40); WHITE BLOOD COUNT 5.8 10^3/uL (4.0-10.0)
[2023-08-04 15:23] LABS: ALBUMIN 3.7 G/DL (3.2-5.2); ALKALINE PHOSPHATASE 77 U/L (46-116); ALT/SGPT 34 U/L (7.0-40); AST/SGOT 20 U/L (<34); BILIRUBIN,TOTAL 0.9 MG/DL (0.3-1.2); BLOOD UREA NITROGEN 18 MG/DL (9-23); CARBON DIOXIDE LEVEL 33 MMOL/L (20-31); CHLORIDE LEVEL 100 MMOL/L (98-107); CHOLESTEROL LEVEL 158 MG/DL (<200); CHOLESTEROL RISK RATIO 3.08 (<5); CPK CREATINE PHOSPHOKINASE 92 U/L (34-145); CREATININE FOR GFR 0.95 MG/DL (0.55-1.30); GLOMERULAR FILTRATION RATE > 60.0 (>39); GLUCOSE, FASTING 97 MG/DL (74-106); HDL CHOLESTEROL 51.2 MG/DL (>40); LDL CHOLESTEROL 80.4 MG/DL (<100); NON-HDL-C 106.8 MG/DL; POTASSIUM SERUM 3.9 MMOL/L (3.5-5.1); SODIUM LEVEL 139 MMOL/L (136-145); TOTAL PROTEIN 6.4 G/DL (5.7-8.2); TRIGLYCERIDES LEVEL 132 MG/DL (<150)
== END ==
LOC: M LAB 14:12
PROVIDERS: ATTEND Nurse Practitioner Family
DX: E55.9 Vitamin D deficiency, unspecified (principal); E78.00 Pure hypercholesterolemia, unspecified

== ENCOUNTER → 2023-10-06 | Outpatient (REF) | payer MEDICARE, OTHER ==
[2023-10-07 10:45] LABS: RSV AMPLIFICATION NEGATIVE (NEGATIVE)
== END ==
LOC: M LAB REF 10:02
PROVIDERS: ATTEND Student in an Organized Health Care Education/Training Program
DX: J06.9 Acute upper respiratory infection, unspecified (principal)

== ENCOUNTER → 2023-11-02 | Outpatient (CLI) | payer MEDICARE, OTHER ==
[2023-11-02 15:01] LABS: BASO % 0.5 % (0.0-1.0); EOS # 0.3 10^3/uL (0.0-0.5); EOS % 4.1 % (0.0-3.0); HEMATOCRIT 38.6 % (36.0-47.0); HEMOGLOBIN 13.2 g/dl (12.0-15.5); LYMPH # 0.9 10^3/uL (1.5-5.0); LYMPH % 14.1 % (24.0-44.0); MEAN CORPUSCULAR HEMOGLOBIN 31.1 pg (27.0-33.0); MEAN CORPUSCULAR HGB CONC 34.2 g/dl (32.0-36.5); MEAN CORPUSCULAR VOLUME 90.8 fl (80.0-96.0); MONO # 0.5 10^3/uL (0.0-0.8); MONO % 8.5 % (2.0-8.0); NEUTROPHILS # 4.6 10^3/uL (1.5-8.5); NEUTROPHILS % 72.3 % (36.0-66.0); PLATELET COUNT, AUTOMATED 206 10^3/uL (150-450); RED BLOOD COUNT 4.25 10^6/uL (4.00-5.40); WHITE BLOOD COUNT 6.4 10^3/uL (4.0-10.0)
[2023-11-02 15:31] LABS: CPK CREATINE PHOSPHOKINASE 80 U/L (34-145)
[2023-11-02 15:32] LABS: ALBUMIN 3.6 G/DL (3.2-5.2); ALKALINE PHOSPHATASE 88 U/L (46-116); ALT/SGPT 31 U/L (7.0-40); AST/SGOT 18 U/L (<34); BILIRUBIN,TOTAL 0.9 MG/DL (0.3-1.2); BLOOD UREA NITROGEN 18 MG/DL (9-23); CALCIUM LEVEL 9.1 MG/DL (8.3-10.6); CARBON DIOXIDE LEVEL 33 MMOL/L (20-31); CHLORIDE LEVEL 103 MMOL/L (98-107); CHOLESTEROL LEVEL 161 MG/DL (<200); CHOLESTEROL RISK RATIO 3.41 (<5); CREATININE FOR GFR 0.81 MG/DL (0.55-1.30); GLOMERULAR FILTRATION RATE > 60.0 (>39); GLUCOSE, FASTING 102 MG/DL (74-106); HDL CHOLESTEROL 47.2 MG/DL (>40); LDL CHOLESTEROL 85.6 MG/DL (<100); NON-HDL-C 113.8 MG/DL; POTASSIUM SERUM 3.9 MMOL/L (3.5-5.1); SODIUM LEVEL 138 MMOL/L (136-145); TOTAL PROTEIN 6.7 G/DL (5.7-8.2); TRIGLYCERIDES LEVEL 141 MG/DL (<150)
[2023-11-02 15:34] LABS: TOTAL 25(OH) VITAMIN D 48.6 NG/ML (20.0-100.0)
== END ==
LOC: M LAB 14:22
PROVIDERS: ATTEND Nurse Practitioner Family
DX: E78.5 Hyperlipidemia, unspecified (principal); I10 Essential (primary) hypertension; E55.9 Vitamin D deficiency, unspecified

== ENCOUNTER → 2024-02-14 | Outpatient (CLI) | payer MEDICARE, OTHER ==
[2024-02-14 13:18] LABS: BASO % 0.4 % (0.0-1.0); EOS # 0.1 10^3/uL (0.0-0.5); EOS % 0.7 % (0.0-3.0); HEMATOCRIT 40.9 % (36.0-47.0); HEMOGLOBIN 13.8 g/dl (12.0-15.5); LYMPH # 1.2 10^3/uL (1.5-5.0); LYMPH % 17.8 % (24.0-44.0); MEAN CORPUSCULAR HEMOGLOBIN 30.2 pg (27.0-33.0); MEAN CORPUSCULAR HGB CONC 33.7 g/dl (32.0-36.5); MEAN CORPUSCULAR VOLUME 89.5 fl (80.0-96.0); MONO # 0.6 10^3/uL (0.0-0.8); MONO % 9.1 % (2.0-8.0); NEUTROPHILS # 4.9 10^3/uL (1.5-8.5); NEUTROPHILS % 71.6 % (36.0-66.0); PLATELET COUNT, AUTOMATED 258 10^3/uL (150-450); RED BLOOD COUNT 4.57 10^6/uL (4.00-5.40); WHITE BLOOD COUNT 6.8 10^3/uL (4.0-10.0)
[2024-02-14 13:58] LABS: ALBUMIN 3.9 G/DL (3.2-5.2); BILIRUBIN,TOTAL 0.7 MG/DL (0.3-1.2); CALCIUM LEVEL 10.3 MG/DL (8.3-10.6); CHOLESTEROL RISK RATIO 3.34 (<5); CREATININE FOR GFR 1.02 MG/DL (0.55-1.30); GLOMERULAR FILTRATION RATE 55.9 (>39); HDL CHOLESTEROL 55.9 MG/DL (>40); LDL CHOLESTEROL 108.1 MG/DL (<100); NON-HDL-C 131.1 MG/DL; POTASSIUM SERUM 3.8 MMOL/L (3.5-5.1)
== END ==
LOC: M LAB 12:18
PROVIDERS: ATTEND Nurse Practitioner Family
DX: E78.5 Hyperlipidemia, unspecified (principal)

== ENCOUNTER 2024-03-03 09:03 | Emergency (ER) | payer MEDICARE, OTHER ==
[~2024-03-03] VITALS: Ht 167.6 cm; Wt 81.4 kg
[2024-03-03] MEDS ORDERED: HYDR12.55 (09:13)
[2024-03-03] MEDS ORDERED: HYDR25TA87 (09:13)
[2024-03-03] MEDS: ASPIRIN 81MG CHEW TABLET PO ONE (09:33)
[2024-03-03 09:34] LABS: BASO % 0.5 % (0.0-1.0); EOS # 0.1 10^3/uL (0.0-0.5); EOS % 1.6 % (0.0-3.0); HEMATOCRIT 39.4 % (36.0-47.0); HEMOGLOBIN 13.3 g/dl (12.0-15.5); LYMPH # 1.3 10^3/uL (1.5-5.0); LYMPH % 23.6 % (24.0-44.0); MEAN CORPUSCULAR HEMOGLOBIN 30.6 pg (27.0-33.0); MEAN CORPUSCULAR HGB CONC 33.8 g/dl (32.0-36.5); MEAN CORPUSCULAR VOLUME 90.8 fl (80.0-96.0); MONO # 0.6 10^3/uL (0.0-0.8); MONO % 10.3 % (2.0-8.0); NEUTROPHILS # 3.6 10^3/uL (1.5-8.5); NEUTROPHILS % 63.6 % (36.0-66.0); PLATELET COUNT, AUTOMATED 238 10^3/uL (150-450); RED BLOOD COUNT 4.34 10^6/uL (4.00-5.40); WHITE BLOOD COUNT 5.6 10^3/uL (4.0-10.0)
[2024-03-03 10:00] LABS: CK-MB VALUE MASS < 1.0 NG/ML (<3.6)
[2024-03-03 10:01] LABS: LIPASE 55 U/L (12-53)
[2024-03-03] MEDS ORDERED: ISOVUE-370 76% 100ML VIAL As Ordered ONE (10:02)
[2024-03-03 10:03] LABS: ALBUMIN 3.7 G/DL (3.2-5.2); ALKALINE PHOSPHATASE 83 U/L (35-104); ALT/SGPT 30 U/L (7.0-40); AST/SGOT 20 U/L (<34); BILIRUBIN,DIRECT < 0.1 MG/DL (<0.4); BILIRUBIN,TOTAL 0.4 MG/DL (0.3-1.2); BLOOD UREA NITROGEN 28 MG/DL (9-23); CALCIUM LEVEL 9.5 MG/DL (8.3-10.6); CARBON DIOXIDE LEVEL 32 MMOL/L (20-31); CHLORIDE LEVEL 104 MMOL/L (98-107); CREATININE FOR GFR 0.86 MG/DL (0.55-1.30); GLOMERULAR FILTRATION RATE > 60.0 (>39); GLUCOSE, FASTING 130 MG/DL (74-106); POTASSIUM SERUM 3.4 MMOL/L (3.5-5.1); SODIUM LEVEL 143 MMOL/L (136-145); TOTAL PROTEIN 6.7 G/DL (5.7-8.2)
[2024-03-03 10:04] LABS: FREE T4 1.16 NG/DL (0.89-1.76); THYROID STIMULATING HORMONE 3.408 uIU/ML (0.55-4.78)
[2024-03-03 10:05] LABS: CPK CREATINE PHOSPHOKINASE 103 U/L (34-145); MB/CK RELATIVE INDEX 0.97 (< OR =4)
[2024-03-03 11:07] LABS: MB/CK RELATIVE INDEX 1.16 (< OR =4)
[2024-03-03 11:30] VITALS: BP 129/61; TEMP 97.8; O2SAT 94
[2024-03-03] MEDS ORDERED: CARA1TAB6 PO (11:32)
== END 2024-03-03 11:49 | disposition home or self-care (01) ==
LOC: M ED 09:03
DX: K20.90 Esophagitis, unspecified without bleeding (principal); I72.8 Aneurysm of other specified arteries; N83.202 Unspecified ovarian cyst, left side; R07.9 Chest pain, unspecified; I11.9 Hypertensive heart disease without heart failure; E78.5 Hyperlipidemia, unspecified; K21.9 Gastro-esophageal reflux disease without esophagitis; G47.30 Sleep apnea, unspecified; Z98.61 Coronary angioplasty status; F17.200 Nicotine dependence, unspecified, uncomplicated; Z79.899 Other long term (current) drug therapy; Z88.6 Allergy status to analgesic agent
CPT/HCPCS: 71045; 71275; 74174; 80047; 80048; 80076; 82550; 82553; 83690; 84439; 84443; 84484; 85025; 93005; 93041; 94760; 99285; Q9967

== ENCOUNTER → 2024-03-29 | Outpatient (CLI) | payer MEDICARE, OTHER ==
[~2024-03-29] MED LIST changes: +CARA1TAB6 PO; +HYDR12.55; +HYDR25TA87
== END ==
LOC: M WHC 14:51
PROVIDERS: ATTEND Specialist
DX: Z12.31 Encounter for screening mammogram for malignant neoplasm of breast (principal); M85.851 Other specified disorders of bone density and structure, right thigh; M85.852 Other specified disorders of bone density and structure, left thigh; R92.333 Mammographic heterogeneous density, bilateral breasts; R92.8 Other abnormal and inconclusive findings on diagnostic imaging of breast

== ENCOUNTER → 2024-04-17 | Outpatient (CLI) | payer MEDICARE, OTHER | LOC: M WHC 11:05 | PROVIDERS: ATTEND Specialist | DX: R92.2 Inconclusive mammogram (principal) | CPT/HCPCS: 76642; 77065; G0279 ==

== ENCOUNTER 2024-05-09 09:23 | Day surgery (SDC) | payer MEDICARE, OTHER ==
[~2024-05-09] VITALS: Ht 167.6 cm; Wt 76.5 kg
[~2024-05-09 09:23] MED LIST changes: +BAYE81TA10 PO; +CHRO400T PO; +CITA40TA7 PO; +FERR325T3 PO; +FLUT15.820; +FURO20TA2 PO; -HYDR12.55; +HYDR12.55 PO; -HYDR25TA87; +HYDR25TA87 PO; +LIDOCAINE 2% 100MG/5ML SDV (FOR ANES.) As Ordered ONE; +LOSA100T46 PO; +OMEG10002 PO; +PRES10CA2 PO; +RA M500C PO; +SUCR1TAB56 PO; +UBIQ200C3 PO; +VIBE75TA PO; +ZYRT10TA12 PO; +[UNRECOGNIZED DRUG - OTHER] PO; +propofoL 200 MG/20 ML VIAL As Ordered ONE
[2024-05-09 10:00] VITALS: TEMP 96.7
[2024-05-09] MEDS ORDERED: fentaNYL 100 MCG/2 ML INJECTION As Ordered ONE (10:09)
[2024-05-09 11:20] VITALS: BP 135/63; O2SAT 100
== END 2024-05-09 11:27 | disposition home or self-care (01) ==
LOC: M OPP 09:23
PROVIDERS: ATTEND Internal Medicine Gastroenterology
DX: Z12.11 Encounter for screening for malignant neoplasm of colon (principal); K63.5 Polyp of colon; K64.0 First degree hemorrhoids; K57.30 Diverticulosis of large intestine without perforation or abscess without bleeding; K22.89 Other specified disease of esophagus; K44.9 Diaphragmatic hernia without obstruction or gangrene; I10 Essential (primary) hypertension; E78.00 Pure hypercholesterolemia, unspecified; K21.9 Gastro-esophageal reflux disease without esophagitis; M19.90 Unspecified osteoarthritis, unspecified site; F41.9 Anxiety disorder, unspecified; F32.A Depression, unspecified; G62.9 Polyneuropathy, unspecified; J45.909 Unspecified asthma, uncomplicated; G47.33 Obstructive sleep apnea (adult) (pediatric); Z87.891 Personal history of nicotine dependence; Z88.6 Allergy status to analgesic agent; Z79.51 Long term (current) use of inhaled steroids; Z79.899 Other long term (current) drug therapy
CPT/HCPCS: 43239; 45380; 88305; J3010

== ENCOUNTER → 2024-05-18 | Outpatient (REF) | payer MEDICARE, OTHER ==
[~2024-05-18] MED LIST changes: -LIDOCAINE 2% 100MG/5ML SDV (FOR ANES.) As Ordered ONE; -propofoL 200 MG/20 ML VIAL As Ordered ONE
[2024-05-18 19:06] LABS: APPEARANCE, URINE CLEAR (CLEAR); BACTERIA, URINE AUTO NEGATIVE (NEGATIVE); BILIRUBIN, URINE AUTO NEGATIVE (NEGATIVE); BLOOD, URINE BLOOD NEGATIVE (NEGATIVE); COLOR, URINE YELLOW (YELLOW); GLUCOSE, URINE (UA) AUTO NEGATIVE (NEGATIVE); KETONE, URINE AUTO NEGATIVE (NEGATIVE); LEUKOCYTE ESTERASE, URINE AUTO NEGATIVE (NEGATIVE); MUCUS, URINE SMALL (NEGATIVE); NITRITE, URINE AUTO NEGATIVE (NEGATIVE); PROTEIN, URINE AUTO NEGATIVE (NEGATIVE); RBC, URINE AUTO 0 /HPF (0-3); SPECIFIC GRAVITY URINE AUTO 1.012 (1.002-1.035); SQUAMOUS EPITHELIAL CELL UR AU 1 /HPF (0-6); UROBILINOGEN, URINE AUTO 0.2 mg/dL (0.0-2.0); WBC, URINE AUTO 1 /HPF (0-3)
== END ==
LOC: M SMT 17:14
PROVIDERS: ATTEND Nurse Practitioner Family
DX: Z85.51 Personal history of malignant neoplasm of bladder (principal)

== ENCOUNTER → 2024-06-13 | Outpatient (CLI) | payer MEDICARE, OTHER | LOC: M RAD 10:54 | PROVIDERS: ATTEND Specialist | DX: N83.202 Unspecified ovarian cyst, left side (principal) ==

== ENCOUNTER → 2024-09-18 | Outpatient (CLI) | payer MEDICARE, OTHER ==
[~2024-09-18] MED LIST changes: -CHRO1000 PO; -EQL50TAB2 PO; +VITA1TAB82 PO; +[UNRECOGNIZED DRUG - CODE] PO
[2024-09-18 11:16] LABS: BASO # 0.0 10^3/uL (0.0-0.2); BASO % 0.6 % (0.0-1.0); EOS # 0.1 10^3/uL (0.0-0.5); EOS % 1.3 % (0.0-3.0); LYMPH # 0.9 10^3/uL (1.5-5.0); LYMPH % 16.9 % (24.0-44.0); MONO # 0.6 10^3/uL (0.0-0.8); MONO % 11.4 % (2.0-8.0); NEUTROPHILS # 3.7 10^3/uL (1.5-8.5); NEUTROPHILS % 69.6 % (36.0-66.0); PLATELET COUNT, AUTOMATED 235 10^3/uL (150-450)
[2024-09-18 11:38] LABS: CPK CREATINE PHOSPHOKINASE 120.0 U/L (34-145)
[2024-09-18 11:39] LABS: ALT/SGPT 23.0 U/L (7.0-40); AST/SGOT 24.0 U/L (<34); CALCIUM LEVEL 9.4 MG/DL (8.3-10.6); CARBON DIOXIDE LEVEL 33.0 MMOL/L (20-31); CHLORIDE LEVEL 103.0 MMOL/L (98-107); CHOLESTEROL LEVEL 150.0 MG/DL (<200); CHOLESTEROL RISK RATIO 2.61 (<5); CREATININE FOR GFR 1.0 MG/DL (0.55-1.30); GLOMERULAR FILTRATION RATE 57.7 (>39); LDL CHOLESTEROL 73.0 MG/DL (<100); NON-HDL-C 92.6 MG/DL; POTASSIUM SERUM 4.2 MMOL/L (3.5-5.1); SODIUM LEVEL 142.0 MMOL/L (136-145); TRIGLYCERIDES LEVEL 98.0 MG/DL (<150)
== END ==
LOC: M LAB 10:51
PROVIDERS: ATTEND Nurse Practitioner Family
DX: E78.5 Hyperlipidemia, unspecified (principal)

== ENCOUNTER → 2024-10-03 | Outpatient (CLI) | payer MEDICARE, OTHER | LOC: M RAD 14:38 | PROVIDERS: ATTEND Nurse Practitioner Family | DX: N18.2 Chronic kidney disease, stage 2 (mild) (principal); D17.5 Benign lipomatous neoplasm of intra-abdominal organs ==

== ENCOUNTER → 2024-12-18 | Outpatient (CLI) | payer MEDICARE, OTHER ==
[~2024-12-18] MED LIST changes: +COFF1CAP3 PO; +GABA-1171 PO
[2024-12-18 14:43] LABS: BASO # 0.0 10^3/uL (0.0-0.2); BASO % 0.9 % (0.0-1.0); EOS # 0.0 10^3/uL (0.0-0.5); EOS % 0.9 % (0.0-3.0); LYMPH # 1.0 10^3/uL (1.5-5.0); LYMPH % 23.1 % (24.0-44.0); MONO # 0.6 10^3/uL (0.0-0.8); MONO % 12.9 % (2.0-8.0); NEUTROPHILS # 2.7 10^3/uL (1.5-8.5); NEUTROPHILS % 62.0 % (36.0-66.0); PLATELET COUNT, AUTOMATED 249 10^3/uL (150-450)
[2024-12-18 15:13] LABS: ALT/SGPT 21.0 U/L (7.0-40); AST/SGOT 18.0 U/L (<34); CALCIUM LEVEL 9.3 MG/DL (8.3-10.6); CARBON DIOXIDE LEVEL 32.0 MMOL/L (20-31); CHLORIDE LEVEL 101.0 MMOL/L (98-107); CHOLESTEROL LEVEL 162.0 MG/DL (<200); CHOLESTEROL RISK RATIO 2.82 (<5); CPK CREATINE PHOSPHOKINASE 88.0 U/L (34-145); CREATININE FOR GFR 0.88 MG/DL (0.55-1.30); GLOMERULAR FILTRATION RATE 67.2 (>39); LDL CHOLESTEROL 88.6 MG/DL (<100); NON-HDL-C 104.6 MG/DL; POTASSIUM SERUM 4.1 MMOL/L (3.5-5.1); SODIUM LEVEL 142.0 MMOL/L (136-145); TRIGLYCERIDES LEVEL 80.0 MG/DL (<150)
== END ==
LOC: M LAB 13:51
PROVIDERS: ATTEND Nurse Practitioner Family
DX: E78.5 Hyperlipidemia, unspecified (principal)

== ENCOUNTER 2024-12-24 12:57 | Day surgery (SDC) | payer MEDICARE, OTHER ==
[~2024-12-24] VITALS: Ht 167.6 cm; Wt 76.9 kg
[2024-12-24] MEDS: LR 1,000 ML IV SCH (13:30)
[2024-12-24 13:42] LABS: PLATELET COUNT, AUTOMATED 232 10^3/uL (150-450)
[2024-12-24] MEDS ORDERED: dexAMETHasone 4 MG/ML 1 ML VIAL As Ordered ONE (14:14)
[2024-12-24] MEDS ORDERED: ONDANSETRON 4MG/2ML VIAL As Ordered ONE (14:14)
[2024-12-24] MEDS ORDERED: LIDOCAINE 2% 100 MG/5 ML SDV (FOR ANES.) As Ordered ONE (14:15)
[2024-12-24] MEDS ORDERED: ACETAMINOPHEN 1000MG/100ML IV BAG As Ordered ONE (14:15)
[2024-12-24] MEDS ORDERED: ONDANSETRON 4MG/2ML VIAL IV PRN (15:25)
[2024-12-24] MEDS ORDERED: MORPHINE 4 MG/ML 1 ML VIAL IV PRN (15:25)
[2024-12-24 16:16] VITALS: BP 160/67; TEMP 98.9; O2SAT 99
== END 2024-12-24 17:20 | disposition home or self-care (01) ==
LOC: M SDC 12:57
PROVIDERS: ATTEND Specialist
DX: N84.0 Polyp of corpus uteri (principal); I12.9 Hypertensive chronic kidney disease with stage 1 through stage 4 chronic kidney disease, or unspecified chronic kidney disease; E78.00 Pure hypercholesterolemia, unspecified; G47.30 Sleep apnea, unspecified; N18.9 Chronic kidney disease, unspecified; Z79.899 Other long term (current) drug therapy; Z85.51 Personal history of malignant neoplasm of bladder; K21.9 Gastro-esophageal reflux disease without esophagitis
CPT/HCPCS: 36415; 58558; 85027; 88305; J0131; J1100; J2405; J3010

== ENCOUNTER 2024-12-26 17:38 | Emergency (ER) | payer MEDICARE, OTHER ==
[~2024-12-26] VITALS: Ht 167.6 cm; Wt 78.5 kg
[2024-12-26 22:26] VITALS: BP 175/74; TEMP 98.1; O2SAT 99
== END 2024-12-26 22:32 | disposition home or self-care (01) ==
LOC: M ED 17:38
DX: S03.43XA Sprain of jaw, bilateral, initial encounter (principal); W01.0XXA Fall on same level from slipping, tripping and stumbling without subsequent striking against object, initial encounter; Y92.009 Unspecified place in unspecified non-institutional (private) residence as the place of occurrence of the external cause; Y93.9 Activity, unspecified; Y99.9 Unspecified external cause status; I10 Essential (primary) hypertension; E78.5 Hyperlipidemia, unspecified; G47.33 Obstructive sleep apnea (adult) (pediatric); J45.909 Unspecified asthma, uncomplicated; Z79.899 Other long term (current) drug therapy; Z88.6 Allergy status to analgesic agent; M43.02 Spondylolysis, cervical region

== ENCOUNTER → 2025-01-27 | Outpatient (REF) | payer MEDICARE, OTHER | LOC: M LAB REF 17:20 | PROVIDERS: ATTEND Student in an Organized Health Care Education/Training Program | DX: R30.0 Dysuria (principal) ==